=== PATIENT | male | born 1950 | race Caucasian/White ===

== ENCOUNTER → 2018-03-28 07:02 | Outpatient (CLI) | payer MEDICARE, OTHER, SELFPAY ==
[2018-03-28 07:30] LABS: Basophils % 0.5 % (0.1-2.0); Eosinophils # 0.3 K/mm3 (0.0-0.4); Eosinophils % 3.3 % (0.1-12.0); Hematocrit 44.6 % (42.0-52.0); Hemoglobin 15.4 g/dL (14.1-18.0); Lymphocytes # 3.2 K/mm3 (0.7-4.5); Mean Corpuscular HGB Conc 34.5 g/dL (31.8-35.4); Mean Corpuscular Hemoglobin 30.1 pg (27.0-31.2); Mean Corpuscular Volume 87.1 fl (80-94); Mean Platelet Volume 7.3 fl (7.4-10.4); Monocytes # 0.5 K/mm3 (0.1-1.0); Monocytes % 5.9 % (1.7-9.3); Neutrophils # 4.4 K/mm3 (1.8-7.8); Neutrophils % 52.2 % (37.0-80.0); Platelet Count 279 K/mm3 (142-424); Red Blood Count 5.12 M/mm3 (4.60-6.20); Red Cell Distribution Width 14.7 % (11.5-17.5); White Blood Count 8.4 K/mm3 (4.8-10.8)
[2018-03-28 09:46] LABS: Hemoglobin A1C 8.6 % (0.0-7.0)
[2018-03-28 10:15] LABS: Alanine Aminotransferase 17 U/L (12-78); Albumin Level 3.5 gm/dL (3.4-5.0); Albumin/Globulin Ratio 0.9 (1.1-1.8); Alkaline Phosphatase 57 U/L (46-116); Aspartate Amino Transferase 21 U/L (15-37); Bilirubin,Total 0.6 mg/dL (0.2-1.0); Blood Urea Nitrogen 22 mg/dL (7-18); Calcium 9.8 mg/dL (8.5-10.1); Carbon Dioxide 28 mmol/L (21.0-32.0); Chloride 102 mmol/L (98-107); Creatinine,Serum 1.04 mg/dL (0.70-1.30); Estimated Glomerular Filt Rate 71 ml/min (>60); GFR (African American) 86 ML/MIN (>60); Globulin 3.7 gm/dl (1.3-3.2); Glucose 246 mg/dL (74-106); Sodium 138 mmol/L (136-145); Total Protein,Serum 7.2 gm/dL (6.4-8.2)
[2018-03-28 16:06] LABS: Chol/HDL Ratio 4.2 (1-3.5); Cholesterol 174 mg/dL (140-200); HDL Cholesterol 41 mg/dL (27-67); Triglycerides 528 mg/dL (30-200)
== END ==
PROVIDERS: Visit Provider Family Medicine
DX: I25.10 Atherosclerotic heart disease of native coronary artery without angina pectoris (principal); E78.5 Hyperlipidemia, unspecified; I10 Essential (primary) hypertension; E11.9 Type 2 diabetes mellitus without complications
CPT/HCPCS: 36415; 80053; 80061; 83036; 85025

== ENCOUNTER → 2018-09-29 07:20 | Outpatient (CLI) | payer MEDICARE, OTHER, SELFPAY ==
[2018-09-29 08:50] LABS: Hemoglobin A1C 9.6 % (0.0-7.0)
[2018-09-29 08:57] LABS: Alanine Aminotransferase 19 U/L (12-78); Albumin Level 3.3 gm/dL (3.4-5.0); Albumin/Globulin Ratio 0.8 (1.1-1.8); Alkaline Phosphatase 66 U/L (46-116); Anion Gap 14.4 mEq/L (5-15); Aspartate Amino Transferase 25 U/L (15-37); Bilirubin,Total 0.4 mg/dL (0.2-1.0); Blood Urea Nitrogen 13 mg/dL (7-18); Calcium 9.1 mg/dL (8.5-10.1); Carbon Dioxide 27 mmol/L (21.0-32.0); Chloride 103 mmol/L (98-107); Chol/HDL Ratio 4.7 (1-3.5); Cholesterol 198 mg/dL (140-200); Creatinine,Serum 0.95 mg/dL (0.70-1.30); Estimated Glomerular Filt Rate 79 ml/min (>60); GFR (African American) 96 ML/MIN (>60); Glucose 241 mg/dL (74-106); HDL Cholesterol 42 mg/dL (27-67); Potassium 4.4 mmoL/L (3.5-5.1); Sodium 140 mmol/L (136-145); Total Protein,Serum 7.3 gm/dL (6.4-8.2)
[2018-09-29 09:03] LABS: Triglycerides 456 mg/dL (30-200)
== END ==
PROVIDERS: PCP Family Medicine; Visit Provider Family Medicine
DX: E11.9 Type 2 diabetes mellitus without complications (principal); E78.5 Hyperlipidemia, unspecified
CPT/HCPCS: 36415; 80053; 80061; 83036

== ENCOUNTER → 2019-05-22 07:49 | Outpatient (CLI) | payer MEDICARE, OTHER, SELFPAY ==
[2019-05-22 08:52] LABS: Hemoglobin A1C 9.9 % (0.0-7.0)
[2019-05-22 10:20] LABS: Alanine Aminotransferase 20 U/L (12-78); Albumin Level 3.3 gm/dL (3.4-5.0); Albumin/Globulin Ratio 0.8 (1.1-1.8); Alkaline Phosphatase 59 U/L (46-116); Anion Gap 12.7 mEq/L (5-15); Aspartate Amino Transferase 22 U/L (15-37); Bilirubin,Total 0.5 mg/dL (0.2-1.0); Blood Urea Nitrogen 20 mg/dL (7-18); Calcium 9.6 mg/dL (8.5-10.1); Carbon Dioxide 30 mmol/L (21.0-32.0); Chloride 102 mmol/L (98-107); Chol/HDL Ratio 4.3 (1-3.5); Cholesterol 183 mg/dL (140-200); Creatinine,Serum 1.01 mg/dL (0.70-1.30); Estimated Glomerular Filt Rate 73 ml/min (>60); GFR (African American) 89 ML/MIN (>60); Globulin 4.1 gm/dl (1.3-3.2); Glucose 170 mg/dL (74-106); HDL Cholesterol 43 mg/dL (27-67); Potassium 4.7 mmoL/L (3.5-5.1); Sodium 140 mmol/L (136-145); Total Protein,Serum 7.4 gm/dL (6.4-8.2); Triglycerides 419 mg/dL (30-200)
== END ==
PROVIDERS: Visit Provider Family Medicine
DX: E11.9 Type 2 diabetes mellitus without complications (principal); E78.5 Hyperlipidemia, unspecified; I25.10 Atherosclerotic heart disease of native coronary artery without angina pectoris; I25.5 Ischemic cardiomyopathy; Z12.5 Encounter for screening for malignant neoplasm of prostate
CPT/HCPCS: 36415; 80053; 80061; 83036; 84153; G0103

== ENCOUNTER → 2020-11-03 10:33 | Outpatient (CLI) | payer MEDICARE, OTHER, SELFPAY ==
--- NOTE | 2020-11-03 10:41 | XR_ITS ---
PROCEDURE: XR FOOT WT BEARING RT 3V CLINICAL INDICATION: fracture of right great toe COMPARISON: CR XR FOOT WT BEARING LT 3V from 11/03/2020 FINDINGS: There is a well-circumscribed lucency the diaphyseal metaphyseal junction the great toe measuring 11 mm. Osteoarthritic changes are present at the 1st MTP joint. There is a 7 mm well-circumscribed calcific density along the dorsal aspect and distal aspect of the 1st metatarsal. The lucency could be related to an osteochondral defect in the calcific density could be related to an osteochondral fragment. This however would be unusual appearance for these findings especially at the distal aspect of the 1st metatarsal. Has there been previous surgery or trauma? There is some soft tissue swelling at the distal aspect of the 1st metatarsal as well. There is borderline pes planus. Vascular calcifications are noted. Small calcaneal spur. IMPRESSION: Unusual lucency and calcific density at the distal aspect of the 1st metatarsal as described above which could be related to osteochondral defect and osteochondral fragment postsurgical change or posttraumatic change. Please correlate with clinical findings. There are osteoarthritic changes at the 1st MTP joint Dictated by: Bonifacio Garcia MD 11/03/2020 11:31 Bonifacio Garcia MD in [place] 11/03/2020 11:31
--- NOTE | 2020-11-03 10:41 | XR_ITS ---
PROCEDURE: XR FOOT WT BEARING LT 3V CLINICAL INDICATION: comparison views Pain, left great toe fracture redness and swelling COMPARISON: No exams were available for comparison FINDINGS: There is a fracture at the proximal and lateral aspect of the distal phalanx of the great toe. Fracture lines are not well circumscribed. This does raise the possibility osteomyelitis with pathologic fracture. Please correlate with clinical findings. There is soft tissue swelling at this area. No soft tissue gas. Mild osteoarthritic changes are present at the 1st MTP joint and there is generalized vascular calcification. Other findings:None. IMPRESSION: Nondisplaced fracture lateral aspect and proximal aspect of the distal phalanx of the great toe with ill-defined bony margins raising the possibility of associated osteomyelitis Dictated by: Bonifacio Garcia MD 11/03/2020 11:33 Bonifacio Garcia MD in [place] 11/03/2020 11:33
== END ==
PROVIDERS: PCP Family Medicine; Visit Provider Podiatrist
DX: T14.8XXA Other injury of unspecified body region, initial encounter (principal); M79.672 Pain in left foot; M79.671 Pain in right foot; S92.415A Nondisplaced fracture of proximal phalanx of left great toe, initial encounter for closed fracture
CPT/HCPCS: 73630

== ENCOUNTER → 2020-11-06 09:35 | Outpatient (CLI) | payer MEDICARE, OTHER, SELFPAY ==
[2020-11-06 10:15] LABS: Basophils # 0.1 K/mm3 (0-0.2); Basophils % 0.8 % (0.1-2.0); Eosinophils # 0.2 K/mm3 (0.0-0.4); Eosinophils % 2.2 % (0.1-12.0); Hematocrit 50.2 % (42.0-52.0); Hemoglobin 16.8 g/dL (14.1-18.0); Lymphocytes # 2.9 K/mm3 (0.7-4.5); Lymphocytes % 32.1 % (10-50); Mean Corpuscular HGB Conc 33.4 g/dL (31.8-35.4); Mean Corpuscular Hemoglobin 28.3 pg (27.0-31.2); Mean Platelet Volume 7.9 fl (7.4-10.4); Monocytes # 0.5 K/mm3 (0.1-1.0); Monocytes % 6.1 % (1.7-9.3); Neutrophils # 5.3 K/mm3 (1.8-7.8); Neutrophils % 58.8 % (37.0-80.0); Platelet Count 287 K/mm3 (142-424); Red Blood Count 5.91 M/mm3 (4.60-6.20); Red Cell Distribution Width 15.1 % (11.5-17.5)
[2020-11-06 10:51] LABS: Chloride 101 mmol/L (98-107)
[2020-11-06 10:52] LABS: Potassium 4.7 mmoL/L (3.5-5.1); Sodium 139 mmol/L (136-145)
[2020-11-06 10:54] LABS: Alanine Aminotransferase 14 U/L (12-78); Albumin Level 4.3 g/dl (3.5-5.0); Albumin/Globulin Ratio 1.2 (1.1-1.8); Alkaline Phosphatase 64 U/L (38-126); Anion Gap 12.7 mEq/L (5-15); Aspartate Amino Transferase 33 U/L (17-59); Bilirubin,Total 0.6 mg/dl (0.2-1.3); Blood Urea Nitrogen 19 mg/dl (9-20); Carbon Dioxide 30 mmol/L (22.0-30.0); Estimated Glomerular Filt Rate 83 ml/min (>60); GFR (African American) 101 ML/MIN (>60); Globulin 3.6 g/dL (1.3-3.2); Total Protein,Serum 7.9 g/dl (6.3-8.2)
[2020-11-06 10:55] LABS: Calcium 10.2 mg/dl (8.4-10.2); Glucose 196 mg/dl (74-100)
[2020-11-06 11:00] LABS: C-Reactive Protein 2.5 mg/L (0-4)
[2020-11-06 11:52] LABS: Erythrocyte Sedimentation Rate 47 mm/hr (0-20)
== END ==
PROVIDERS: Visit Provider Nurse Practitioner
DX: T14.8XXA Other injury of unspecified body region, initial encounter (principal); S92.415D Nondisplaced fracture of proximal phalanx of left great toe, subsequent encounter for fracture with routine healing
CPT/HCPCS: 36415; 80053; 85025; 85651; 86140; 87070; 87186; 87205

== ENCOUNTER → 2020-11-10 08:00 | Outpatient (CLI) | payer MEDICARE, OTHER, SELFPAY ==
--- NOTE | 2020-11-10 08:02 | US_ITS ---
APPROVED REPORT Exam Type: Ankle to Brachial Index Business Administrator: Shobha Hodge RT(R) Indications Abrasion of the left great toe with discoloration noted. Risk Factors Hypertension Hyperlipidemia Obesity Diabetes Pressures/Indices Right Indices Left Indices Brachial 135.00 mmHg Brachial 133.00 mmHg Low Thigh 138.00 mmHg 1.02 Low Thigh 131.00 mmHg 0.97 Calf 163.00 mmHg 1.21 Calf 171.00 mmHg 1.27 Ankle(PT) 191.00 mmHg 1.41 Ankle(PT) 143.00 mmHg 1.06 Ankle(DP) 155.00 mmHg 1.15 Ankle(DP) 142.00 mmHg 1.05 Digit 66.00 mmHg 0.49 Digit 74.00 mmHg 0.55 Findings RT SHAHANA=1.41 LT SHAHANA=1.1 RT TBI=0.49 LT TBI=0.55 Normal waveforms SHAHANA's on RT consistent with restrictive pattern Normal pulses bilaterally Conclusion RT SHAHANA=1.41 LT SHAHANA=1.1 RT TBI=0.49 LT TBI=0.55 Normal waveforms SHAHANA's on RT consistent with restrictive pattern Normal pulses bilaterally Electronically signed by : Bonifacio Garcia MD 11/10/2020 16:53:23
--- NOTE | 2020-11-10 08:43 | MR_ITS ---
PROCEDURE: MR FOOT LT WO/W CON CLINICAL INDICATION: evaluating for osteomyelitis of the left great toe S/P FX GREAT TOE X1 MONTH, DIABETIC, R/O OSTEOMYELITIS COMPARISON: CR XR FOOT WT BEARING LT 3V from 11/03/2020 TECHNIQUE: Routine multiplanar multi echo sequences are performed without and with gadolinium enhancement. FINDINGS: There is diffuse increased T2 signal involving the distal phalanx of the great toe with associated soft tissue swelling. There is mild diffuse enhancement of the distal phalanx of the great toe in the surrounding soft tissues. These findings are consistent osteomyelitis. The bony margins of the distal phalanx are somewhat obscured. There is also increased T2 signal involving the mid and distal aspect of the proximal phalanx of the great toe. This is best demonstrated on the sagittal T2 weighted images. There are 2 small areas of more focal increased T2 signal within the distal aspect of the proximal phalanx of the great toe each measuring five mm. Incidental note made of increased T2 signal at the joint space at the 1st metatarsal tarsal junction which may be related to reactive change from osteoarthritic changes. Minimal subchondral cystic change noted at the head of the 1st metatarsal. There is a small area of increased subchondral T2 signal within the lateral aspect of the talar dome suggesting area of osteochondrosis versus subchondral cystic change, favor the latter. This area measures 7 mm. No obvious ligamentous or tendinous abnormalities however, the study is not tailored specifically for those structures. There is pes planus. There are some edematous changes involving the distal aspect of the talus at the you anterior subtalar region consistent with some subchondral cystic changes at 7 mm. There is a moderate amount of fluid surrounding the flexor hallucis longus tendon consistent with tenosynovitis. IMPRESSION: Findings are compatible with osteomyelitis of the distal phalanx of the great toe and the distal aspect of the proximal phalanx of the great toe with associated cellulitis. There are scattered osteoarthritic changes with subchondral cystic areas as described above. Tenosynovitis of flexor hallucis longus tendon Dictated by: Bonifacio Garcia MD 11/13/2020 09:33 Bonifacio Garcia MD in [place] 11/13/2020 09:33
== END ==
PROVIDERS: PCP Family Medicine; Visit Provider Nurse Practitioner
DX: R09.89 Other specified symptoms and signs involving the circulatory and respiratory systems (principal); E08.621 Diabetes mellitus due to underlying condition with foot ulcer; L97.501 Non-pressure chronic ulcer of other part of unspecified foot limited to breakdown of skin; Z79.4 Long term (current) use of insulin
CPT/HCPCS: 73720; 93923; A9576

== ENCOUNTER 2020-11-29 07:37 | Day surgery (SDC) | payer MEDICARE, OTHER, SELFPAY ==
[2020-11-29] VITALS (7 sets, daily range): BP systolic 97–163; BP diastolic 62–107; PULSE 58–75; RESP 18; TEMP 36.5–43; O2SAT 94–98; BMI 28.8
--- NOTE | 2020-11-29 07:58 | XR_ITS ---
PROCEDURE: XR CHEST PORTABLE CLINICAL HISTORY: htn COMPARISON: No exams were available for comparison FINDINGS: The cardiomediastinal silhouette and pulmonary vascularity are within normal limits. The lungs are clear without infiltrates, suspicious nodules, or pleural effusions. No acute bony abnormalities. There is metallic screw along the inferior border of the glenoid right shoulder. IMPRESSION: No acute findings. Dictated by: Dr. Osmin Donato MD 11/29/2020 08:14 Dr. Osmin Donato MD in [place] 11/29/2020 08:14
--- NOTE | 2020-11-29 07:58 | ECG_ITS ---
APPROVED REPORT Exam: Resting ECG HR:73 bpm ECG Measurements Heart Rate 73 AXES QRSd 82 QRS 55 QT 406 T 60 QTc 447 Conclusion Atrial fibrillation with premature ventricular or aberrantly conducted complexes Abnormal ECG Electronically signed by : Shawn Bernard, 11/29/2020 14:20:49
[2020-11-29 08:33] LABS: POC Glucose,Bedside 94 (70-110)
[2020-11-29 08:45] LABS: Hemoglobin A1C 8.2 % (4.0-6.0)
[2020-11-29 09:02] LABS: Coronavirus 19 IgG Antibody Negative (Negative); Coronavirus 19 IgM Antibody Negative (Negative)
--- NOTE | 2020-11-29 09:53 | P.PN_ITS ---
[facility] Anesthesia Checklist - Patient Identification Patient Identification: Arm Band - Structural Data Admitted From: Home Planned Operative Procedure/s: Left Hallux Amputation Consent for Planned Operative Procedure(s) Verified: Yes Verified Documents: Surgical Consent, History and Physical - NPO Status Verified Time NPO: 04:30 (water) - Additional verifications Anesthesia Reactions: No Hx Blood Transfusions: No Blood Transfusion Reaction: No - Airway Assessment C-Spine Mobility Assessed: Yes (mp2) TMJ Mobility Assessed: Yes Dentition: Good Dentition - Neurological Assessment Level of Consciousness: Awake, Alert - Anesthesia Plan Anesthesia Risk discussed: Yes Anesthesia Plan: Verified ASA Class: III Anesthesia Type: MAC [facility] History I have reviewed the patient's past medical history: Yes Medical History: Reports:: Arrhythmia, Atrial Fibrillation, Diabetes Mellitus Type 2, Hypertension Denies:: Cancer, Diabetes Mellitus Type 1, Internal Pacemaker, MRSA, Seizures *Have you ever received a pneumonia vaccine?: Yes *Have you received a flu vaccine this season?: Yes Other Medical History: Denies: Blood Transfusion Reaction Anesthesia experience/problems:: nac Laterality Cases: Right: Other Other Surgeries: Yes: Hernia Repair, Other. No: Pacemaker Amputation: No Fractures: No - *Social History Last grade of school completed: Some college Smoking Status: Never smoker Alcohol Intake: current Alcohol Intake Frequency:: holidays/special occasions only Substance Use Type: denies use *Occupational Status:: employed Housing: house Household Members: spouse *Travel in the last 8 weeks: None Family Hx:: Non-contributory
--- NOTE | 2020-11-29 10:36 | XR_ITS ---
PROCEDURE: XR FOOT LT MIN 3V CLINICAL INDICATION: Post op amp COMPARISON: CR XR FOOT WT BEARING LT 3V from 11/03/2020 CR XR FOOT WT BEARING RT 3V from 11/03/2020 FINDINGS: There has been interval resection of the 1st feelings at the metatarsal phalangeal joint. There are multiple pockets of air within the soft tissues. This could represent postsurgical typical postsurgical air however if surgery was not performed recently than this is worrisome for a gas containing infection and immediate surgical consultation recommended. There is prominent surrounding soft tissue swelling. There is indistinctness of the medial cortex of the 2nd proximal phalangeal head worrisome for and bony involvement however overlying bandage material makes evaluation of the bony structure in this area less precise. If further evaluation is needed, removal overlying bandage material and were or dedicated 2nd toe x-ray would be recommended. IMPRESSION: Air or gas within the soft tissues status post interval amputation. Urgent consultation with surgery recommended. Possible osteomyelitis involving the 2nd proximal phalanx. Additional imaging could clarify. Dictated by: Zohra Mathews MD 11/29/2020 13:09 Zohra Mathews MD in [place] 11/29/2020 13:09
--- NOTE | 2020-11-29 10:37 | HMH.OPNOTE ---
Date of procedure: 11/29/20 Pre-op Diagnosis:: 1. Left hallux osteomyelitis 2. Left hallux diabetic ulcer 3. New left diabetic foot ulcer Post-op Diagnosis:: Same Procedure performed:: 1. Left hallux amputation 2. Left hallux ulcer excision 3. Left midfoot ulcer debridement Surgeon:: Valencia Culver DPM ADHESIVE BANDAGE MACHINE OPERATOR:: Germandelia Tapia Anesthesia: MAC, local (10cc 0.5% marcaine plain) Estimated blood loss (mL): 10 Clinical Note:: Patient is a 70M who presents after fracture to left great toe with diabetic ulcer. Imaging noted. Radiographs of the left foot were reviewed from 11/03/2020 and discussed with the patient. X-rays report findings: There is a fracture at the proximal and lateral aspect of the distal phalanx of the great toe. Fracture lines are not well circumscribed. This does raise the possibility osteomyelitis with pathologic fracture. Please correlate with clinical findings. There is soft tissue swelling at this area. No soft tissue gas. Mild osteoarthritic changes are present at the 1st MTP joint and there is generalized vascular calcification. IMPRESSION: Nondisplaced fracture lateral aspect and proximal aspect of the distal phalanx of the great toe with ill-defined bony margins raising the possibility of associated osteomyelitis. MRI left foot 11/10/20 evalauted by myself. Report noted. FINDINGS: There is diffuse increased T2 signal involving the distal phalanx of the great toe with associated soft tissue swelling. There is mild diffuse enhancement of the distal phalanx of the great toe in the surrounding soft tissues. These findings are consistent osteomyelitis. The bony margins of the distal phalanx are somewhat obscured. There is also increased T2 signal involving the mid and distal aspect of the proximal phalanx of the great toe. This is best demonstrated on the sagittal T2 weighted images. There are 2 small areas of more focal increased T2 signal within the distal aspect of the proximal phalanx of the great toe each measuring five mm. Incidental note made of increased T2 signal at the joint space at the 1st metatarsal tarsal junction which may be related to reactive change from osteoarthritic changes. Minimal subchondral cystic change noted at the head of the 1st metatarsal. There is a small area of increased subchondral T2 signal within the lateral aspect of the talar dome suggesting area of osteochondrosis versus subchondral cystic change, favor the latter. This area measures 7 mm. No obvious ligamentous or tendinous abnormalities however, the study is not tailored specifically for those structures. There is pes planus. There are some edematous changes involving the distal aspect of the talus at the you anterior subtalar region consistent with some subchondral cystic changes at 7 mm. There is a moderate amount of fluid surrounding the flexor hallucis longus tendon consistent with tenosynovitis. IMPRESSION: Findings are compatible with osteomyelitis of the distal phalanx of the great toe and the distal aspect of the proximal phalanx of the great toe with associated cellulitis. There are scattered osteoarthritic changes with subchondral cystic areas as described above. Tenosynovitis of flexor hallucis longus tendon. Bilateral lower extremity arterial study 11/10/2020 reviewed. Conclusion: RT SHAHANA=1.41, LT SHAHANA=1.1, RT TBI=0.49, LT TBI=0.55. Normal waveforms. SHAHANA's on RT consistent with restrictive pattern. Normal pulses bilaterally. His color maker reviewed and cleared patient. We discussed conservative versus surgical treatment options. Conservative treatment options include local wound care, oral and IV antibiotics, change in shoe wear, taping/padding, and off-loading. We discussed surgical intervention for amputation of the left great toe. Patient understands that there is a chance that the toes can migrate to fill the gap or the foot may change shape after surgery. Patient also understands that they could have wound healing complications including delayed healing and inf
== END 2020-11-29 11:50 | disposition home or self-care (01) ==
LOC: OR 07:40
PROVIDERS: PCP Family Medicine; Visit Provider Podiatrist
PROC: (CPT 11042; principal; 2020-11-29 10:00)
DX: E11.621 Type 2 diabetes mellitus with foot ulcer (principal); M86.9 Osteomyelitis, unspecified; S92.425A Nondisplaced fracture of distal phalanx of left great toe, initial encounter for closed fracture; L97.422 Non-pressure chronic ulcer of left heel and midfoot with fat layer exposed; L97.528 Non-pressure chronic ulcer of other part of left foot with other specified severity; Z79.4 Long term (current) use of insulin; Z79.01 Long term (current) use of anticoagulants; I48.91 Unspecified atrial fibrillation; I10 Essential (primary) hypertension; E11.42 Type 2 diabetes mellitus with diabetic polyneuropathy; Z79.899 Other long term (current) drug therapy
CPT/HCPCS: 11042; 28825; 71045; 73630; 82962; 83036; 86328; 87070; 87077; 87186; 87205; 88305; 88311; 93005; 96374

== ENCOUNTER → 2020-12-11 09:19 | Outpatient (CLI) | payer MEDICARE, OTHER, SELFPAY ==
[2020-12-11 09:49] LABS: Basophils # 0.1 K/mm3 (0-0.2); Basophils % 0.8 % (0.1-2.0); Eosinophils # 0.3 K/mm3 (0.0-0.4); Eosinophils % 3.4 % (0.1-12.0); Hematocrit 49.1 % (42.0-52.0); Hemoglobin 16.5 g/dL (14.1-18.0); Lymphocytes # 2.9 K/mm3 (0.7-4.5); Lymphocytes % 30.4 % (10-50); Mean Corpuscular HGB Conc 33.6 g/dL (31.8-35.4); Mean Corpuscular Hemoglobin 28.2 pg (27.0-31.2); Mean Corpuscular Volume 83.8 fl (80-94); Mean Platelet Volume 7.8 fl (7.4-10.4); Monocytes # 0.7 K/mm3 (0.1-1.0); Monocytes % 7.3 % (1.7-9.3); Neutrophils # 5.6 K/mm3 (1.8-7.8); Neutrophils % 58.1 % (37.0-80.0); Platelet Count 305 K/mm3 (142-424); Red Blood Count 5.86 M/mm3 (4.60-6.20); Red Cell Distribution Width 14.4 % (11.5-17.5); White Blood Count 9.6 K/mm3 (4.8-10.8)
[2020-12-11 10:41] LABS: Chloride 108 mmol/L (98-107); Potassium 4.5 mmoL/L (3.5-5.1); Sodium 143 mmol/L (136-145)
[2020-12-11 10:43] LABS: Alanine Aminotransferase 13 U/L (12-78); Blood Urea Nitrogen 23 mg/dl (9-20); Estimated Glomerular Filt Rate 83 ml/min (>60); GFR (African American) 101 ML/MIN (>60)
[2020-12-11 10:44] LABS: Albumin Level 4.1 g/dl (3.5-5.0); Albumin/Globulin Ratio 1.1 (1.1-1.8); Alkaline Phosphatase 66 U/L (38-126); Anion Gap 14.5 mEq/L (5-15); Aspartate Amino Transferase 31 U/L (17-59); Bilirubin,Total 0.5 mg/dl (0.2-1.3); Calcium 10.2 mg/dl (8.4-10.2); Carbon Dioxide 25 mmol/L (22.0-30.0); Globulin 3.7 g/dL (1.3-3.2); Glucose 133 mg/dl (74-100); Total Protein,Serum 7.8 g/dl (6.3-8.2)
[2020-12-11 10:49] LABS: C-Reactive Protein 4.1 mg/L (0-4)
[2020-12-11 12:09] LABS: Erythrocyte Sedimentation Rate 11 mm/hr (0-20)
== END ==
PROVIDERS: Visit Provider Podiatrist
DX: Z98.890 Other specified postprocedural states (principal); E11.42 Type 2 diabetes mellitus with diabetic polyneuropathy; Z79.4 Long term (current) use of insulin
CPT/HCPCS: 36415; 80053; 85025; 85651; 86140

== ENCOUNTER → 2020-12-25 16:49 | Outpatient (CLI) | payer MEDICARE, OTHER, SELFPAY ==
--- NOTE | 2020-12-25 17:08 | XR_ITS ---
PROCEDURE: XR FOOT WT BEARING LT 3V CLINICAL INDICATION: PAIN COMPARISON: CR XR FOOT WT BEARING LT 3V from 11/03/2020 CR XR FOOT WT BEARING RT 3V from 11/03/2020 CR XR FOOT LT MIN 3V from 11/29/2020 FINDINGS: There has been prior amputation at the 1st metatarsophalangeal joint. No bony erosive process apparent. There is pes planus. Generalized vascular calcification noted. IMPRESSION: Status post left 1st MTP amputation with pes planus. Dictated by: Bonifacio Garcia MD 12/25/2020 20:33 Bonifacio Garcia MD in [place] 12/25/2020 20:33
[2020-12-25 17:38] LABS: Basophils # 0.1 K/mm3 (0-0.2); Basophils % 0.6 % (0.1-2.0); Eosinophils # 0.3 K/mm3 (0.0-0.4); Eosinophils % 2.8 % (0.1-12.0); Hematocrit 45.4 % (42.0-52.0); Hemoglobin 14.8 g/dL (14.1-18.0); Lymphocytes % 31.9 % (10-50); Mean Corpuscular HGB Conc 32.6 g/dL (31.8-35.4); Mean Corpuscular Hemoglobin 27.8 pg (27.0-31.2); Mean Corpuscular Volume 85.4 fl (80-94); Mean Platelet Volume 7.7 fl (7.4-10.4); Monocytes # 0.7 K/mm3 (0.1-1.0); Monocytes % 7.3 % (1.7-9.3); Neutrophils # 5.5 K/mm3 (1.8-7.8); Neutrophils % 57.4 % (37.0-80.0); Platelet Count 260 K/mm3 (142-424); Red Blood Count 5.31 M/mm3 (4.60-6.20); Red Cell Distribution Width 14.9 % (11.5-17.5); White Blood Count 9.5 K/mm3 (4.8-10.8)
[2020-12-25 17:50] LABS: Alanine Aminotransferase 15 U/L (12-78); Albumin/Globulin Ratio 1.1 (1.1-1.8); Alkaline Phosphatase 65 U/L (38-126); Anion Gap 12.2 mEq/L (5-15); Aspartate Amino Transferase 46 U/L (17-59); Bilirubin,Total 0.4 mg/dl (0.2-1.3); Blood Urea Nitrogen 18 mg/dl (9-20); Calcium 9.7 mg/dl (8.4-10.2); Carbon Dioxide 23 mmol/L (22.0-30.0); Chloride 107 mmol/L (98-107); Estimated Glomerular Filt Rate 83 ml/min (>60); GFR (African American) 101 ML/MIN (>60); Globulin 3.6 g/dL (1.3-3.2); Glucose 165 mg/dl (74-100); Potassium 4.2 mmoL/L (3.5-5.1); Sodium 138 mmol/L (136-145); Total Protein,Serum 7.6 g/dl (6.3-8.2)
[2020-12-25 17:56] LABS: C-Reactive Protein 2.1 mg/L (0-4)
[2020-12-25 19:57] LABS: Erythrocyte Sedimentation Rate 16 mm/hr (0-20)
[2020-12-25 20:10] LABS: Hemoglobin A1C 8.4 % (4.0-6.0)
== END ==
PROVIDERS: PCP Family Medicine; Visit Provider Podiatrist
DX: Z98.890 Other specified postprocedural states (principal); M86.9 Osteomyelitis, unspecified; E11.9 Type 2 diabetes mellitus without complications; R52 Pain, unspecified; Z79.4 Long term (current) use of insulin
CPT/HCPCS: 36415; 73630; 80053; 83036; 85025; 85651; 86140

== ENCOUNTER → 2021-01-01 11:12 | Outpatient (CLI) | payer MEDICARE, OTHER, SELFPAY ==
[2021-01-01 12:43] LABS: Coronavirus 19 IgG Antibody Negative (Negative); Coronavirus 19 IgM Antibody Negative (Negative)
== END ==
PROVIDERS: Visit Provider Podiatrist
DX: Z01.818 Encounter for other preprocedural examination (principal); Z20.822 Contact with and (suspected) exposure to COVID-19; M86.9 Osteomyelitis, unspecified
CPT/HCPCS: 36415; 86328

== ENCOUNTER 2021-01-03 06:12 | Day surgery (SDC) | payer MEDICARE, OTHER, SELFPAY ==
[2021-01-03 06:36] VITALS: BP 141/92; PULSE 87; RESP 18; TEMP 36.4; O2SAT 96; BMI 28.2
[2021-01-03 06:41] LABS: POC Glucose,Bedside 153 (70-110)
[2021-01-03 07:34] VITALS: BP 127/72; PULSE 80; RESP 18; TEMP 36.7; O2SAT 96
--- NOTE | 2021-01-03 07:52 | HMH.OPNOTE ---
Date of procedure: 01/03/21 Pre-op Diagnosis:: 1. Left hallux wound dehiscence 2. Left hallux cellulites Post-op Diagnosis:: Same Procedure performed:: 1. Left hallux wound deep debridement 2. Left hallux irrigation and debridement 3. Left hallux/foot delayed primary closure Surgeon:: Valencia Culver DPM Anesthesia: local (10cc 0.5% marcaine plain) Estimated blood loss (mL): 5 Clinical Note:: 11/29/20, S/p Left hallux amputation, hallux ulcer excision, midfoot ulcer debridement 11/29/20, intra-op specimens: Left hallux distal phalanx bone culture: Staph epi (MRSA) Left hallux proximal phalanx bone culture: MRSA Left hallux distal phalanx bone pathology: Toe with focal ulceration and cellulitis, no evidence of malignancy Left hallux proximal phalanx bone pathology: Segment of bone and periosteal tissue with focal reactive changes. No evidence of malignancy Labs, 12/11/2020: wbc 9.6, esr 11, crp 4.1, glucose 133, creatinine 0.9, gfr 83 Labs, 12/25/2020: wbc 9.6, esr 16, crp 2.1, glucose 165, creatinine 0.9, gfr 83, Ha1c 8.4% Left foot x-rays 3 views taken 12/25/20 evaluated by myself. Report noted. FINDINGS: There has been prior amputation at the 1st metatarsophalangeal joint. No bony erosive process apparent. There is pes planus. Generalized vascular calcification noted. IMPRESSION: Status post left 1st MTP amputation with pes planus. Patient did get cardiac/vascular clearance prior to surgery but concerned of the small vessel disease and why he is not healing. I explained the lack/slow healing to be PVD or recurrent infection. The labs and left foot x-rays to evaluate for recurrent osteomyelitis were reviewed, and show no recurrent infection. Discussed since the wound does not look improved, plan for surgery planning visit for revision of the amputation site with debridement and delayed primary closure. Discussed local versus MAC anesthesia if needed. 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 Recommend patient decrease work hours and elevate the foot as much as possible. Unlikely the patient will stop work or take time off. All questions answered and patient verbalized understanding and agreement with treatment plan. We discussed conservative versus surgical treatment options. Conservative treatment options include local wound care, oral and IV antibiotics, change in shoe wear, taping/padding, and off-loading. We discussed surgical intervention for wound debridement. Patient understands that there is a chance that the toes can migrate to fill the gap or the foot may change shape after surgery. Patient also understands that they could have wound healing complications including delayed healing and infection. We discussed that if the wound does not heal, it is possible that they may need a more proximal amputation and could result in further loss of digits, loss of partial foot or loss of leg. We discussed the risks and benefits in great detail. Other surgical risks include: prolonged pain and swelling, further infection requiring oral or IV antibiotics, delay in healing of soft tissue or bone, nerve or blood vessel damage, CRPS/RSD, DVT, anesthesia complications, and even . All questions answered. Patient verbalized understanding. Consent obtained. Continue Minocycline 100mg BID x 14 days (12/05-12/19/20-01/03/21). Labs: covid (-) on 01/01/21. Operative findings:: Left hallux wound dehiscence noted. The left hallux pre debridement has 50% yellow fibrotic tissue with 40% brown eschar, 10% granular tissue. There was no purulence, malodor or ascending cellulitis noted. The toe distally was boggy. No exposed 1st metatarsal head. Operative note:: On this date and time patient was deemed an appropriate surgical candidate. With informed consent signed, the patient was taken to the local procedure operating theater room. The patient was positioned supine. No anesthesia and no tourniquet used. Pre-op left foot block given with 10 cc 0.5% marcaine tucker
== END 2021-01-03 07:50 | disposition home or self-care (01) ==
LOC: OUTP 06:14
PROVIDERS: PCP Family Medicine; Visit Provider Podiatrist
DX: T87.81 Dehiscence of amputation stump (principal); L03.032 Cellulitis of left toe; I10 Essential (primary) hypertension; E11.621 Type 2 diabetes mellitus with foot ulcer; L97.529 Non-pressure chronic ulcer of other part of left foot with unspecified severity; Z79.4 Long term (current) use of insulin
CPT/HCPCS: 11042; 82962; 87070; 87077; 87186; 87205; 96372

== ENCOUNTER → 2021-01-22 09:03 | Outpatient (CLI) | payer MEDICARE, OTHER, SELFPAY ==
[2021-01-22 10:00] LABS: Basophils # 0.1 K/mm3 (0-0.2); Basophils % 0.7 % (0.1-2.0); Eosinophils # 0.3 K/mm3 (0.0-0.4); Eosinophils % 3.2 % (0.1-12.0); Hematocrit 48.3 % (42.0-52.0); Hemoglobin 16.1 g/dL (14.1-18.0); Lymphocytes # 3.3 K/mm3 (0.7-4.5); Lymphocytes % 37.2 % (10-50); Mean Corpuscular HGB Conc 33.3 g/dL (31.8-35.4); Mean Corpuscular Hemoglobin 28.1 pg (27.0-31.2); Mean Corpuscular Volume 84.6 fl (80-94); Mean Platelet Volume 8.1 fl (7.4-10.4); Monocytes # 0.6 K/mm3 (0.1-1.0); Monocytes % 6.6 % (1.7-9.3); Neutrophils # 4.7 K/mm3 (1.8-7.8); Neutrophils % 52.2 % (37.0-80.0); Platelet Count 237 K/mm3 (142-424); Red Blood Count 5.71 M/mm3 (4.60-6.20); Red Cell Distribution Width 14.9 % (11.5-17.5)
[2021-01-22 10:44] LABS: Chloride 107 mmol/L (98-107); Potassium 4.6 mmoL/L (3.5-5.1); Sodium 141 mmol/L (136-145)
[2021-01-22 10:47] LABS: Alanine Aminotransferase 14 U/L (12-78); Albumin Level 4.5 g/dl (3.5-5.0); Albumin/Globulin Ratio 1.3 (1.1-1.8); Alkaline Phosphatase 67 U/L (38-126); Anion Gap 9.6 mEq/L (5-15); Aspartate Amino Transferase 56 U/L (17-59); Bilirubin,Total 0.7 mg/dl (0.2-1.3); Blood Urea Nitrogen 16 mg/dl (9-20); Carbon Dioxide 29 mmol/L (22.0-30.0); Estimated Glomerular Filt Rate 96 ml/min (>60); GFR (African American) 116 ML/MIN (>60); Globulin 3.4 g/dL (1.3-3.2); Total Protein,Serum 7.9 g/dl (6.3-8.2)
[2021-01-22 10:48] LABS: Calcium 9.8 mg/dl (8.4-10.2); Glucose 125 mg/dl (74-100)
[2021-01-22 11:12] LABS: Erythrocyte Sedimentation Rate 27 mm/hr (0-20)
== END ==
PROVIDERS: Visit Provider Nurse Practitioner
DX: Z98.890 Other specified postprocedural states (principal); M86.9 Osteomyelitis, unspecified
CPT/HCPCS: 36415; 80053; 85025; 85651; 86140

== ENCOUNTER → 2021-06-11 14:34 | Outpatient (CLI) | payer MEDICARE, OTHER, SELFPAY ==
--- NOTE | 2021-06-11 | CA_ITS ---
APPROVED REPORT Right Lower Extremity Venous Study for DVT. Student Life Coordinator: DON Indications Lower Extremity Pain: Right Right knee injury Vein Imaging CFV (R): compressive, spontaneous, phasic, augmentation SFJ (R): compressive, spontaneous, phasic, augmentation FEM (R): compressive, spontaneous, phasic, augmentation POP (R): compressive, spontaneous, phasic, augmentationcompressive, spontaneous, phasic, augmentation DFV (R): compressive, spontaneous, phasic, augmentation PTV (R): compressive, spontaneous, phasic, augmentation GSV (R): compressive, spontaneous, phasic, augmentation SSV (R): compressive, spontaneous, phasic, augmentation Peroneals (R):compressive, spontaneous, phasic, augmentation GAS (R): compressive, spontaneous, phasic, augmentation Findings Color flow duplex demonstrates no evidence of DVT of the following right lower extremity Veins:Common Femoral Vein, Femoral Vein, Popliteal Vein, Posterior Tibial Veins, Peroneal Veins, Deep Femoral Vein. Negative for DVT at this time. Right popliteal slow flow noted with complete compression. Conclusion Negative for DVT at this time. Electronically signed by : Bonifacio Garcia MD 06/11/2021 16:18:45
--- NOTE | 2021-06-11 14:41 | XR_ITS ---
PROCEDURE: XR TIBIA FIBULA RT 2V CLINICAL INDICATION: RIGHT LEG SWELLING COMPARISON: No exams were available for comparison FINDINGS: No fracture or dislocation. No lytic or blastic change. There is normal mineralization. The joint spaces are well-preserved. No significant degenerative/arthritic changes. No erosive changes evident. There is vascular calcification IMPRESSION: No acute findings. Dictated by: Bonifacio Garcia MD 06/11/2021 15:34 Bonifacio Garcia MD in [place] 06/11/2021 15:34
== END ==
PROVIDERS: PCP Family Medicine; Visit Provider Family Medicine
DX: M79.604 Pain in right leg (principal); M79.89 Other specified soft tissue disorders
CPT/HCPCS: 73590; 93971

== ENCOUNTER 2021-09-05 18:09 | Emergency (ER) | payer MEDICARE, OTHER, SELFPAY ==
[2021-09-05] VITALS (10 sets, daily range): BP systolic 124–154; BP diastolic 79–97; PULSE 78–123; RESP 18–24; TEMP 36.8; O2SAT 94–98; BMI 28.2
--- NOTE | 2021-09-05 18:09 | ECG_ITS ---
APPROVED REPORT Exam: Resting ECG HR:116 bpm ECG Measurements Heart Rate 116 AXES QRSd 82 QRS 31 QT 328 T 132 QTc 455 Conclusion Atrial fibrillation with rapid ventricular response Nonspecific ST and T wave abnormality Abnormal ECG Electronically signed by : Shawn Bernard MD 09/07/2021 12:13:07
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
[2021-09-05 18:45] LABS: Basophils # 0.1 K/mm3 (0-0.2); Basophils % 0.6 % (0.1-2.0); Eosinophils # 0.1 K/mm3 (0.0-0.4); Hematocrit 45.5 % (42.0-52.0); Hemoglobin 15.1 g/dL (14.1-18.0); Lymphocytes # 2.4 K/mm3 (0.7-4.5); Lymphocytes % 19.7 % (10-50); Mean Corpuscular HGB Conc 33.1 g/dL (31.8-35.4); Mean Corpuscular Hemoglobin 28.6 pg (27.0-31.2); Mean Corpuscular Volume 86.2 fl (80-94); Monocytes # 0.7 K/mm3 (0.1-1.0); Monocytes % 5.3 % (1.7-9.3); Neutrophils # 9.1 K/mm3 (1.8-7.8); Neutrophils % 73.5 % (37.0-80.0); Platelet Count 228 K/mm3 (142-424); Red Blood Count 5.28 M/mm3 (4.60-6.20); Red Cell Distribution Width 15.1 % (11.5-17.5); White Blood Count 12.3 K/mm3 (4.8-10.8)
[2021-09-05 18:50] LABS: Chloride 102 mmol/L (98-107); Potassium 3.9 mmoL/L (3.5-5.1); Sodium 140 mmol/L (136-145)
[2021-09-05 18:53] LABS: Anion Gap 15.9 mEq/L (5-15); Blood Urea Nitrogen 18 mg/dl (9-20); Calcium 9.3 mg/dl (8.4-10.2); Carbon Dioxide 26 mmol/L (22.0-30.0); Creatinine Clearance Estimated 97 mL/min (50-200); Estimated Glomerular Filt Rate 83 ml/min (>60); GFR (African American) 101 ML/MIN (>60); Glucose 215 mg/dl (74-100)
[2021-09-05 19:05] LABS: Troponin I 0.07 ng/ml (0.00-0.034)
--- NOTE | 2021-09-05 19:20 | PC.NURSE ---
ER MD is aware of troponin level
--- NOTE | 2021-09-05 19:30 | PC.NURSE ---
called [facility] to reach Dr. Pacheco/button spindler.
--- NOTE | 2021-09-05 19:42 | PC.NURSE ---
Dr. Mariano on phone with Dr. Miller from [facility].
--- NOTE | 2021-09-05 19:48 | PC.NURSE ---
face sheet faxed to [facility] [phone]
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
--- NOTE | 2021-09-05 20:56 | PC.NURSE ---
pt has been accepted to [facility] room 466. Call when pt leaves to [phone].
--- NOTE | 2021-09-05 20:59 | PC.NURSE ---
Report given to Chary @ [facility] Adalid Rivero
--- NOTE | 2021-09-05 21:14 | PC.NURSE ---
Updated pt and daughter that report has been called, we are awaiting [facility] once they back in [facility].
[2021-09-05 22:07] LABS: Troponin I 0.64 ng/ml (0.00-0.034)
[2021-09-05 22:18] LABS: POC Glucose,Bedside 146 (70-110)
== END 2021-09-05 23:02 | disposition short-term general hospital (02) ==
PROVIDERS: Emergency Provider Emergency Medicine; PCP Nurse Practitioner Family
DX: R07.2 Precordial pain (principal); I48.0 Paroxysmal atrial fibrillation; E11.9 Type 2 diabetes mellitus without complications; I10 Essential (primary) hypertension; Z79.899 Other long term (current) drug therapy
CPT/HCPCS: 71046; 80048; 82962; 84484; 85025; 93005; 96374; 99284

== ENCOUNTER → 2021-10-15 07:00 | Outpatient (CLI) | payer MEDICARE, OTHER, SELFPAY ==
[2021-10-15 10:26] LABS: Chloride 102 mmol/L (98-107)
[2021-10-15 10:27] LABS: Potassium 4.6 mmoL/L (3.5-5.1); Sodium 139 mmol/L (136-145)
[2021-10-15 10:29] LABS: Alanine Aminotransferase 11 U/L (12-78); Anion Gap 11.6 mEq/L (5-15); Aspartate Amino Transferase 31 U/L (17-59); Blood Urea Nitrogen 15 mg/dl (9-20); Carbon Dioxide 30 mmol/L (22.0-30.0); Estimated Glomerular Filt Rate 83 ml/min (>60); GFR (African American) 101 ML/MIN (>60)
[2021-10-15 10:30] LABS: Albumin/Globulin Ratio 1.3 (1.1-1.8); Alkaline Phosphatase 60 U/L (38-126); Bilirubin,Total 0.5 mg/dl (0.2-1.3); Calcium 9.5 mg/dl (8.4-10.2); Chol/HDL Ratio 3.9 (1-3.5); Cholesterol 158 mg/dl (140-200); Glucose 163 mg/dl (74-100); HDL Cholesterol 41 mg/dl (40-60); Triglycerides 263 mg/dl (30-150); VLDL Cholesterol 53 mg/dL (0-40)
[2021-10-15 10:41] LABS: Direct LDL Cholesterol 83.87 mg/dL (100-129)
== END ==
PROVIDERS: Visit Provider Internal Medicine
DX: E78.5 Hyperlipidemia, unspecified (principal)
CPT/HCPCS: 36415; 80053; 80061

== ENCOUNTER → 2021-12-25 16:10 | Outpatient (CLI) | payer MEDICARE, OTHER, SELFPAY ==
--- NOTE | 2021-12-25 16:28 | MR_ITS ---
PROCEDURE INFORMATION: Exam: MR Right Lower Extremity Joint Without Contrast; Ankle Exam date and time: 12/25/2021 4:28 PM Age: 71 years old Clinical indication: Pain; Ankle; Right; Additional info: Right ankle pain TECHNIQUE: Imaging protocol: MR of the Right lower extremity without contrast. Exam focused on the ankle. COMPARISON: CA VENOUS DOPPLER LE RT 06/11/2021 2:50 PM FINDINGS: Bones and cartilage: Incompletely healed appearing fracture distal diaphysis of the fibula with moderate offset and exuberant surrounding periosteal reaction and partial bony healing response. Asymmetric loss of articular cartilage lateral aspect of the ankle mortise joint with probable reactive marrow edema in the adjacent distal tibia and lateral dome of the talus. No linear fracture is seen here. Joint spaces: Effusions in tibiotalar and subtalar articulations. LIGAMENTS: Distal tibiofibular syndesmosis: See Anterior talofibular ligament finding. Anterior talofibular ligament: Suspect remote tear of anterior talofibular ligament which appears thickened. The calcaneal fibular ligament is indistinct and appears torn as well. Previous tear of the anterior tibiofibular ligament with mild widening anteriorly here. Posterior talofibular ligament: Unremarkable. No tear. Calcaneofibular ligament: See Anterior talofibular ligament finding. Deltoid ligament complex: Unremarkable. No tear. TENDONS: Flexor tendons of foot: Unremarkable as visualized. Tibialis posterior tendon: Unremarkable as visualized. Peroneal tendons: Moderate tendinopathy peroneus longus and brevis tendons as they cross behind the lateral malleolus without full-thickness retracted tear. Extensor tendons of foot: Unremarkable as visualized. Tibialis anterior tendon: Unremarkable as visualized. Achilles tendon: Unremarkable as visualized. Tarsal canal (Sinus tarsi): Limited edema. Tarsal tunnel: Unremarkable. Muscles: Unremarkable. Soft tissues: Nonspecific edematous infiltration of subcutaneous fat may be passive edema or cellulitis. Plantar fascia: Plantar fascia is unremarkable. IMPRESSION: 1. Incompletely healed appearing fracture distal diaphysis of the fibula with moderate offset and exuberant surrounding periosteal reaction and partial bony healing response. 2. Asymmetric loss of articular cartilage lateral aspect of the ankle mortise joint with probable reactive marrow edema in the adjacent distal tibia and lateral dome of the talus. No linear fracture is seen here. 3. Suspect remote tear of anterior talofibular ligament which appears thickened. The calcaneal fibular ligament is indistinct and appears torn as well. Previous tear of the anterior tibiofibular ligament with mild widening anteriorly here. 4. Moderate tendinopathy peroneus longus and brevis tendons as they cross behind the lateral malleolus without full-thickness retracted tear. 5. Effusions in tibiotalar and subtalar articulations.
== END ==
PROVIDERS: PCP Family Medicine; Visit Provider Physician Assistant
DX: M25.571 Pain in right ankle and joints of right foot (principal)
CPT/HCPCS: 73721

== ENCOUNTER → 2022-01-08 08:27 | Outpatient (CLI) | payer MEDICARE, OTHER, SELFPAY ==
--- NOTE | 2022-01-08 08:41 | XR_ITS ---
FINAL REPORT CLINICAL HISTORY: blister/sore, hx of infection FINDINGS: RIGHT ANKLE Three views demonstrate no acute fracture or dislocation. There is a chronic fracture of the distal fibula. Fracture line is still visible. Medial and lateral soft tissue swelling is seen. Note is made of vascular calcification. There is a small chronic calcification adjacent to the medial malleolus. IMPRESSION: Chronic appearing findings without acute bony abnormality. Reviewed, Interpreted and Dictated by Lewis Lazo III, MD Transcribed by Lisa Espino Authenticated by Lewis Lazo III, MD on 01/08/2022 12:42:47 PM [facility]
--- NOTE | 2022-01-08 08:41 | XR_ITS ---
FINAL REPORT CLINICAL HISTORY: pain FINDINGS: RIGHT FOOT Three views demonstrate no acute fracture or dislocation. Mild degenerative changes are present. There is a small plantar spur. Mild vascular calcification is identified. No acute soft tissue abnormality is seen. IMPRESSION: Mild degenerative changes. Reviewed, Interpreted and Dictated by Lewis Lazo III, MD Transcribed by Lisa Espino Authenticated by Lewis Lazo III, MD on 01/08/2022 12:42:46 PM [facility]
== END ==
PROVIDERS: PCP Family Medicine; Visit Provider Podiatrist
DX: R52 Pain, unspecified (principal); Z51.89 Encounter for other specified aftercare; M25.571 Pain in right ankle and joints of right foot; M79.671 Pain in right foot; B95.2 Enterococcus as the cause of diseases classified elsewhere
CPT/HCPCS: 73610; 73630; 87070; 87077; 87186; 87205

== ENCOUNTER → 2022-01-14 12:55 | Outpatient (CLI) | payer MEDICARE, OTHER, SELFPAY ==
--- NOTE | 2022-01-14 12:56 | US_ITS ---
FINAL REPORT CLINICAL HISTORY: DECREASED PEDAL PULSES,CLAUDICATION, REST PAIN,BLISTERS RT HEEL,DM,HTN,HLD,PRIOR AMPUTATION LT GREAT TOE FINDINGS: ANKLE-BRACHIAL PRESSURE INDICES Pressure indices are as follows: RIGHT LOWER EXTREMITY: Ankle-brachial pressure index: 1.15 Comments: Normal LEFT LOWER EXTREMITY: Ankle-brachial pressure index: 1.25 Comments: Left calf is noncompressible. CONCLUSION: There is restrictive pattern of bilateral ABIs. Values may be inaccurate. Consider CTA for further evaluation. Reviewed, Interpreted and Dictated by Lewis Lazo III, MD Transcribed by Tayler Ortiz Authenticated by Lewis Lazo III, MD on 01/14/2022 02:47:01 PM [facility]
== END ==
PROVIDERS: PCP Family Medicine; Visit Provider Podiatrist
DX: R09.89 Other specified symptoms and signs involving the circulatory and respiratory systems (principal)
CPT/HCPCS: 93923

== ENCOUNTER 2022-01-15 13:00 | Outpatient (RCR) | payer MEDICARE, OTHER, SELFPAY | END 2022-01-15 13:05 | disposition home or self-care (01) | LOC: PT 13:00 | PROVIDERS: PCP Family Medicine; Visit Provider Orthopaedic Surgery Adult Reconstructive Orthopaedic Surgery | DX: S82.831D Other fracture of upper and lower end of right fibula, subsequent encounter for closed fracture with routine healing (principal) | CPT/HCPCS: 97010; 97014; 97110; 97112; 97140; 97163; 97760; G0283 ==

== ENCOUNTER → 2022-01-23 08:43 | Outpatient (CLI) | payer MEDICARE, OTHER, SELFPAY ==
--- NOTE | 2022-01-23 08:46 | XR_ITS ---
FINAL REPORT CLINICAL HISTORY: Fracture evaluation COMPARISON: January 08, 2022 FINDINGS: RIGHT ANKLE: Three views of the right ankle were obtained. There is extensive callus formation of the healing fracture of the distal right fibular diaphysis. There is prominent soft tissue swelling around the ankle. There is abnormal narrowing of the lateral mortise and widening of the medial mortise, concerning for ligamentous disruption. IMPRESSION: Progressive healing of the distal fibular fracture. Abnormal appearance of the ankle mortise concerning for ligamentous disruption. Reviewed, Interpreted and Dictated by Barry Quintanilla MD Transcribed by Manish Kinney Authenticated by Barry Quintanilla MD on 01/23/2022 10:12:[address] [facility]
== END ==
PROVIDERS: PCP Family Medicine; Visit Provider Podiatrist
DX: S82.401A Unspecified fracture of shaft of right fibula, initial encounter for closed fracture (principal)
CPT/HCPCS: 73610

== ENCOUNTER → 2022-06-10 15:38 | Outpatient (CLI) | payer MEDICARE, OTHER, SELFPAY ==
--- NOTE | 2022-06-10 15:43 | XR_ITS ---
FINAL REPORT CLINICAL HISTORY: F/U fracture, pain in distal tib/fib COMPARISON: January 23, 2022 FINDINGS: RIGHT ANKLE: Three views of the right ankle were obtained. There is a subacute to chronic fracture of the distal fibula diaphysis with increased bone formation. There is an avulsion of the inferior medial malleolus with increased calcification. There are probable subchondral cysts in the distal tibia and lateral talar dome, worse from prior. There is worsening talar tilt. There is medial and lateral soft tissue swelling, worse. There is a chronic calcification superior to the distal talus. Vascular calcifications are present. IMPRESSION: Distal fibula fracture with increased bone formation. Worsening talar tilt. Worsening subchondral cyst formation. Medial and lateral soft tissue swelling, worse. Reviewed, Interpreted and Dictated by Lewis Lazo III, MD Transcribed by Manish Kinney Authenticated and [facility]
== END ==
PROVIDERS: PCP Family Medicine; Visit Provider Podiatrist
DX: M25.571 Pain in right ankle and joints of right foot (principal)
CPT/HCPCS: 73610

== ENCOUNTER → 2022-06-27 12:41 | Outpatient (CLI) | payer MEDICARE, OTHER, SELFPAY ==
--- NOTE | 2022-06-27 12:43 | MR_ITS ---
FINAL REPORT CLINICAL HISTORY: CLOSED FRACTURE OF DISTAL END OF FIBULA COMPARISON: Plain radiographs dated June 10, 2022 FINDINGS: Multiplanar MR imaging of the right ankle was performed without contrast. There is lateral tilt of the talus and remainder of the foot. There are multiple subchondral cysts in the distal tibia and lateral talar dome with adjacent bone marrow edema and overlying cartilage loss. There is a chronic fracture of the distal fibula diaphysis. There is bone marrow edema in the tibia, fibula, talus, and calcaneus. There is thickening of the anterior talofibular ligament likely representing a partial tear. The calcaneofibular ligament is not seen and likely torn. The deltoid ligament has an abnormal appearance favoring a partial tear. The flexor and extensor tendons are intact. The posterior plantar aponeurosis is intact. A moderate tibiotalar joint effusion is seen. The musculature is intact. There is a 15 mm calcification anterior to the tibiotalar joint likely representing a loose body. There is a smaller 7 mm loose body anteriorly. There is widespread soft tissue edema. IMPRESSION: Lateral tilt of the talus and foot. Subchondral cyst formation with overlying cartilage loss in the distal tibia and lateral talar dome. Widespread multifocal bone marrow edema. Probable tear of the calcaneofibular ligament. Likely partial tears of the anterior talofibular and deltoid ligaments. Widespread soft tissue edema. Tibiotalar joint effusion with multiple loose bodies. Reviewed, Interpreted and Dictated by Lewis Lazo III, MD Transcribed by Manish Kinney Authenticated and . [facility]
== END ==
PROVIDERS: PCP Family Medicine; Visit Provider Family Medicine
DX: S82.831A Other fracture of upper and lower end of right fibula, initial encounter for closed fracture (principal); S93.401A Sprain of unspecified ligament of right ankle, initial encounter
CPT/HCPCS: 73721

== ENCOUNTER → 2022-10-11 08:19 | Outpatient (POV) | payer MEDICARE, OTHER, SELFPAY ==
[2022-10-11 08:50] VITALS: BP 135/90; PULSE 78; RESP 20; TEMP 36.4; O2SAT 94; BMI 26.9
[2022-10-11 09:27] LABS: POC Glucose,Bedside 163 (70-110)
--- NOTE | 2022-10-11 11:28 | EXP.PAIN.OV ---
HPI Data of Consult Patient: new to practice Consult date: 10/11/22 Requesting Physician: Krista Dueñas APRN Primary Care Provider: Joe George MD Consult Narrative Reason for consult: Right foot pain History of present illness: Mr. Armstrong is a 71 year old male who presents today as a new patient. Today he rates his pain a 10 out of 10. Patient states his pain is all along his right foot. Patient describes this as a sharp achy sensation that is worse with increased activity or range of motion. Patient does states he does get some pain relief when he sitting. Patient has tried [id number]-lnyvpak Tylenol with minimal improvement. Patient is also used multiple mziw-eaa-yzyqhuq creams such as Biofreeze and icy hot with only temporary relief. Patient has had physical therapy earlier this year however he was only able to complete 3 visits before having to stop due to the worsening pain symptoms. Patient states that his right ankle pain started approximately May 2021. He did have imaging at this time however with no specific findings. Patient states this progressively worsened and around October/November 2021 where he did fall off the ladder causing a nondisplaced fracture. Patient states he was not required to have surgical intervention and just had bracing with frequent follow-ups. Patient states his pain continued to worsen with increased instability. Patient continued to be seen by a orthopedic physician Dr. José and content writer Dr. Culver. Patient has continued to have worsening symptoms along with worsening imaging along his right ankle and right foot. Patient does have to use a brace on a daily basis in order to provide stabilization and support otherwise he frequently stumbles or feels like his ankle is unstable. Patient did see a doctor Sandra in [place] who stated his options for amputation or a right ankle fusion. Patient states that at this time he is waiting due to his uncontrolled diabetes. His last A1c was 8.5 and the physician has recommended that she wants it under 7. Patient did also go to a specialist in [place], Dr. Hernandez who also gave the same options. He is on insulin therapy and does suffer from peripheral diabetic neuropathy. Patient also has a extensive cardiac history and is unable to tolerate NSAIDs. Patient has been prescribed tramadol 50 mg in the past that did provide some improvement of his symptoms. Patient is interested in any options we can provide to improve any pain symptoms. His Juan Manuel is [phone]. Its been reviewed and appropriate. CC: Krista Dueñas APRN [facility] Disclaimer: The information contained in this section may have been updated after the patient was seen, as this information can be updated by other users. 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
== END ==
PROVIDERS: PCP Family Medicine; Visit Provider Nurse Practitioner Family
DX: E11.42 Type 2 diabetes mellitus with diabetic polyneuropathy (principal); R20.8 Other disturbances of skin sensation; G90.529 Complex regional pain syndrome I of unspecified lower limb; M25.571 Pain in right ankle and joints of right foot; M79.671 Pain in right foot
CPT/HCPCS: 82962; 99202; G0463

== ENCOUNTER → 2022-11-07 12:17 | Outpatient (CLI) | payer MEDICARE, SELFPAY ==
--- NOTE | 2022-11-07 12:24 | XR_ITS ---
FINAL REPORT TECHNIQUE: Two views CLINICAL HISTORY: Congestion COMPARISON: 11/05/2020 FINDINGS: No acute pulmonary density is present. Mediastinal contour is normal. Heart size is stable. IMPRESSION: Stable chest exam without acute disease Reviewed, Interpreted and Dictated by Gallo Carlson MD Transcribed by Lisa Espino Authenticated and [facility]
--- NOTE | 2022-11-07 13:05 | ECG_ITS ---
APPROVED REPORT Exam: Resting ECG HR:69 bpm ECG Measurements Heart Rate 69 AXES QRSd 96 QRS 43 QT 365 T 80 QTc 384 Conclusion ATRIAL FIBRILLATION ABNORMAL RHYTHM ECG UNCONFIRMED REPORT Electronically signed by : Shawn Bernard MD 11/07/2022 14:21:19
== END ==
PROVIDERS: PCP Family Medicine; Visit Provider Family Medicine
DX: Z01.818 Encounter for other preprocedural examination (principal)
CPT/HCPCS: 71046; 93005

== ENCOUNTER → 2023-01-03 17:12 | Outpatient (CLI) | payer MEDICARE, SELFPAY ==
--- NOTE | 2023-01-03 | XR_ITS ---
PROCEDURE INFORMATION: Exam: XR Chest Exam date and time: 01/03/2023 5:25 PM Age: 72 years old Clinical indication: Other: Cough; Patient HX: Recent aspiration --- R/O pneumonia TECHNIQUE: Imaging protocol: Radiologic exam of the chest. Views: 2 views. COMPARISON: CR XR CHEST 2V 11/07/2022 12:32 PM FINDINGS: Lungs: Left lung base atelectasis versus pneumonia. Pleural spaces: Unremarkable. No pleural effusion. No pneumothorax. Heart/Mediastinum: Unremarkable. No cardiomegaly. Bones/joints: Unremarkable. IMPRESSION: Left lung base atelectasis versus pneumonia
== END ==
PROVIDERS: PCP Nurse Practitioner Family; Visit Provider Nurse Practitioner Family
DX: R05.9 Cough, unspecified (principal); Z91.89 Other specified personal risk factors, not elsewhere classified
CPT/HCPCS: 71046

== ENCOUNTER → 2023-02-26 06:45 | Outpatient (CLI) | payer MEDICARE, SELFPAY ==
[2023-02-26 08:45] LABS: Basophils % 0.5 % (0.1-2.0); Eosinophils # 0.2 K/mm3 (0.0-0.4); Eosinophils % 2.8 % (0.1-12.0); Lymphocytes # 2.4 K/mm3 (0.7-4.5); Lymphocytes % 30.2 % (10-50); Mean Corpuscular Hemoglobin 27.7 pg (27.0-31.2); Mean Corpuscular Volume 86.5 fl (80-94); Mean Platelet Volume 7.5 fl (7.4-10.4); Monocytes # 0.5 K/mm3 (0.1-1.0); Monocytes % 6.7 % (1.7-9.3); Neutrophils # 4.7 K/mm3 (1.8-7.8); Neutrophils % 59.8 % (37.0-80.0); Platelet Count 321 K/mm3 (142-424); Red Blood Count 5.44 M/mm3 (4.60-6.20); White Blood Count 7.8 K/mm3 (4.8-10.8)
[2023-02-26 08:52] LABS: Activated Partial Thrombo Time 28.2 seconds (22.8-30.6); INR 1.02 (0.9-1.1)
[2023-02-26 09:09] LABS: Anion Gap 17.8 mEq/L (5-15); Blood Urea Nitrogen 15 mg/dl (9-20); Calcium 9.2 mg/dl (8.4-10.2); Carbon Dioxide 24 mmol/L (22.0-30.0); Chloride 102 mmol/L (98-107); Estimated Glomerular Filt Rate 111 ml/min (>60); GFR (African American) 134 ML/MIN (>60); Glucose 198 mg/dl (74-100); Potassium 4.8 mmoL/L (3.5-5.1); Sodium 139 mmol/L (136-145)
== END ==
PROVIDERS: PCP Family Medicine; Visit Provider Family Medicine
DX: Z01.818 Encounter for other preprocedural examination (principal); Z51.81 Encounter for therapeutic drug level monitoring
CPT/HCPCS: 36415; 80048; 85025; 85610; 85730

== ENCOUNTER → 2023-02-27 08:22 | Outpatient (CLI) | payer MEDICARE, SELFPAY | PROVIDERS: PCP Family Medicine; Visit Provider Family Medicine | DX: Z01.818 Encounter for other preprocedural examination (principal) | CPT/HCPCS: 87081 ==

== ENCOUNTER → 2023-03-04 12:47 | Outpatient (CLI) | payer MEDICARE, SELFPAY ==
--- NOTE | 2023-03-04 12:59 | ECG_ITS ---
APPROVED REPORT Exam: Resting ECG HR:70 bpm ECG Measurements Heart Rate 70 AXES QRSd 101 QRS 46 QT 380 T 67 QTc 401 Conclusion ATRIAL FIBRILLATION ABNORMAL RHYTHM ECG UNCONFIRMED REPORT Electronically signed by : Shawn Bernard MD 03/04/2023 21:19:30
--- NOTE | 2023-03-04 13:03 | XR_ITS ---
FINAL REPORT CLINICAL HISTORY: HTN..pre op surgery COMPARISON: 01/03/2023 FINDINGS: TWO-VIEW CHEST The heart size is normal. The mediastinum is normal. The lungs are clear. There is no pneumothorax. There are postoperative changes in the right shoulder. IMPRESSION: No acute cardiopulmonary process. Reviewed, Interpreted and Dictated by Lewis Lazo III, MD Transcribed by Lisa Espino Authenticated and [facility]
--- NOTE | 2023-03-04 13:03 | XR_ITS ---
FINAL REPORT CLINICAL HISTORY: LT JAW PAIN after surgery FINDINGS: Mandible Four views were obtained. There is no acute fracture or dislocation. There are postoperative changes in the left neck. There is no acute bony abnormality. IMPRESSION: No acute process. Reviewed, Interpreted and Dictated by Lewis Lazo III, MD Transcribed by Lisa Espino Authenticated and . [facility]
== END ==
PROVIDERS: PCP Family Medicine; Visit Provider Family Medicine
DX: Z01.818 Encounter for other preprocedural examination (principal); R68.84 Jaw pain
CPT/HCPCS: 70110; 71046; 93005

== ENCOUNTER 2023-12-08 06:56 | Outpatient (CLI) | payer MEDICARE, SELFPAY ==
--- NOTE | 2023-12-08 | XR_ITS ---
FINAL REPORT CLINICAL HISTORY: ABD/BACK PAIN COMPARISON: None FINDINGS: Two views of the abdomen demonstrate a normal bowel gas pattern. There is no significant stool burden. There are no abnormally dilated loops of small bowel. There is no free air. Calcification just lateral to the right L2 transverse process measuring 16 mm may represent renal stone. IMPRESSION: Normal bowel gas pattern. 16 mm calcification may represent renal stone. Consider CT if indicated. Reviewed, Interpreted and Dictated by Alyssa Hameed MD Transcribed by Margaret Molina Authenticated and [facility]
--- NOTE | 2023-12-08 | XR_ITS ---
FINAL REPORT CLINICAL HISTORY: ABD/BACK PAIN COMPARISON: None FINDINGS: THORACIC SPINE AP, lateral, and swimmer's views of the thoracic spine were obtained. There is no prior exam for comparison. There is no acute fracture or malalignment. Mild multilevel degenerative disease. Paraspinal soft tissues are within normal limits. IMPRESSION: Mild multilevel degenerative disease. LUMBOSACRAL Spine 5 views of the lumbosacral spine were obtained. There is no prior for comparison. There is no acute fracture or malalignment. There is grade 1/2 anterior spondylolisthesis of L5 on S1 with minimal retrolisthesis of L4 on L5. Alignment is otherwise normal. Paraspinal soft tissues are within normal limits. IMPRESSION: Multilevel degenerative disc disease, most pronounced at L4-5 and L5-S1. Reviewed, Interpreted and Dictated by Alyssa Hameed MD Transcribed by Margaret Molina Authenticated and [facility]
== END 2023-12-08 23:59 ==
LOC: RAD 06:58
PROVIDERS: PCP Family Medicine; Visit Provider Anesthesiology
DX: R10.9 Unspecified abdominal pain (principal); M54.6 Pain in thoracic spine; M54.50 Low back pain, unspecified
CPT/HCPCS: 72083; 74018

== ENCOUNTER 2023-12-08 09:43 | Outpatient (POV) | payer MEDICARE, SELFPAY ==
--- NOTE | 2023-12-08 09:46 | EXP.PAIN.SOA ---
[facility] Pain Management SOAP Note Subjective:: Patient is a pleasant 73-year-old male who presents today via telehealth visit for follow-up. This visit is occurring at the patient's home and they have given consent for this audio telehealth visit. We are currently treating the patient for CRPS of the lower right extremity, diabetic peripheral neuropathy. Today he rates his pain at 7 out of 10. Patient states his pain is all in his mid to lower abdomen more prominent on the left side with radiating symptoms to his back. Patient does describe this as an aching, throbbing sensation with occasional sharp shooting pains. Patient states this has been going on for approximately 3 to 4 weeks unrelated to any specific trauma or injury that he can think of. Patient states the pain does interfere with his ability to perform activities of daily living such as cooking and cleaning. Patient does state that he has a significant heart history and did call his food order delivery runner and spoke with the PA who immediately wanted to schedule him for a cardiac cath related to this pain. Patient states he is not having any chest pain but it is all lower into his abdomen. Patient does state that he has concerns proceeding forward with the cath due to not having symptoms for this and the high risk. Patient is interested if we can do any additional testing to see what else is going on. 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 His Juan Manuel has been reviewed and is appropriate. Review of Systems: General: No recent weight changes, no fever, no sleep disturbances Respiratory: No cough, no shortness of air, no recurring pulmonary infections Cardiovascular/peripheral vascular: No chest pain, no palpitations, no edema, no shortness of breath Gastrointestinal: No new onset incontinence, normal bowel movements reported Genitourinary: No new onset incontinence Musculoskeletal: Mid/low back pain, abdominal pain Psychiatric: [Normal mood/affect] Neurological: [Denies weakness in extremities], [denies balance issues] Objective:: General: Alert and oriented x3, pleasant and cooperative Lungs: Patient is able to say complete sentences without dyspnea Neurological: Speech clear COMPARISON: None FINDINGS: Two views of the abdomen demonstrate a normal bowel gas pattern. There is no significant stool burden. There are no abnormally dilated loops of small bowel. There is no free air. Calcification just lateral to the right L2 transverse process measuring 16 mm may represent renal stone. IMPRESSION: Normal bowel gas pattern. 16 mm calcification may represent renal stone. Consider CT if indicated. Reviewed, Interpreted and Dictated by Alyssa Hameed MD Transcribed by Margaret Molina Authenticated and [facility] FINDINGS: THORACIC SPINE AP, lateral, and swimmer's views of the thoracic spine were obtained. There is no prior exam for comparison. There is no acute fracture or malalignment. Mild multilevel degenerative disease. Paraspinal soft tissues are within normal limits. IMPRESSION: Mild multilevel degenerative disease. LUMBOSACRAL Spine 5 views of the lumbosacral spine were obtained. There is no prior for comparison. There is no acute fracture or malalignment. There is grade 1/2 anterior spondylolisthesis of L5 on S1 with minimal retrolisthesis of L4 on L5. Alignment is otherwise normal. Paraspinal soft tissues are within normal limits. IMPRESSION: Multilevel degenerative disc disease, most pronounced at L4-5 and L5-S1. Reviewed, Interpreted and Dictated by Alyssa Hameed MD Transcribed by Margaret Molina Authenticated and [facility] Assessment:: CRPS of lower right extremity, diabetic Peripheral neuropathy, mid to low back pain, abdominal pain Plan:: Patient is experiencing significant pain in and around his abdomen that does radiate into his back along the left side. Patient did have limited range of motion of his lumbar spine. We did do x-ray imaging of his abdomen as well as his spine with findings of a 16 mm calcification along the L2 vertebra. I have discussed with the patient that we will do advanced imaging to determine whether or not this is possibly a kidney stone or any other specific findings to explain his acute abdominal/back pain symptoms patient agrees with this plan of care. I will order the patient an MRI of his KUB. We will contact the patient once we have insurance approval and follow-up with the patient after this imaging for reevaluation of symptoms and plan of care. I will also send in refills of his compounded cream. This visit lasted approximately 15 minutes. Patient is an established patient with their informed consent to treat signed and on file. Patient was visually authenticated based on the photograph in the patient?s file. Patient was given a choice of telemedicine visit or office visit; patient chose telemedicine/telehealth visit due to COVID-19 state of emergency. This visit is being conducted via telemedicine telehealth ([place]) in accordance with all applicable laws and regulations. Patient is located in [location] and the treating medical provider is located in [place]. [facility] Disclaimer: The information contained in this section may have been updated after the patient was seen, as this information can be updated by other users. 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
== END 2023-12-08 23:59 | disposition home or self-care (01) ==
PROVIDERS: Visit Provider Nurse Practitioner Family
DX: G90.521 Complex regional pain syndrome I of right lower limb (principal); E11.42 Type 2 diabetes mellitus with diabetic polyneuropathy
CPT/HCPCS: 99212; G0463

== ENCOUNTER 2023-12-10 15:37 | Outpatient (CLI) | payer MEDICARE, SELFPAY ==
[2023-12-10 16:45] LABS: Alanine Aminotransferase 12 U/L (12-78); Albumin Level 3.9 g/dl (3.5-5.0); Albumin/Globulin Ratio 1.3 (1.1-1.8); Alkaline Phosphatase 97 U/L (38-126); Anion Gap 10.1 mEq/L (5-15); Aspartate Amino Transferase 26 U/L (17-59); Bilirubin,Total 0.5 mg/dl (0.2-1.3); Blood Urea Nitrogen 20 mg/dl (9-20); Calcium 9.5 mg/dl (8.4-10.2); Carbon Dioxide 28 mmol/L (22.0-30.0); Chloride 106 mmol/L (98-107); Chol/HDL Ratio 5.5 (1-3.5); Cholesterol 203 mg/dl (140-200); Estimated Glomerular Filt Rate 83 ml/min (>60); GFR (African American) 100 ML/MIN (>60); Globulin 3.1 g/dL (1.3-3.2); Glucose 103 mg/dl (74-100); HDL Cholesterol 37 mg/dl (40-60); Potassium 4.1 mmoL/L (3.5-5.1); Sodium 140 mmol/L (136-145); Triglycerides 341 mg/dl (30-150); VLDL Cholesterol 68 mg/dL (0-40)
[2023-12-10 16:56] LABS: Direct LDL Cholesterol 105.94 mg/dL (100-129)
[2023-12-10 17:15] LABS: Prostate Specific Ag Screen 6.8 ng/ml (0.0-4.0)
[2023-12-10 17:18] LABS: Hemoglobin A1C 7.1 % (4.0-6.0)
== END 2023-12-10 23:59 ==
PROVIDERS: PCP Family Medicine; Visit Provider Family Medicine
DX: I25.10 Atherosclerotic heart disease of native coronary artery without angina pectoris (principal); E11.9 Type 2 diabetes mellitus without complications; E78.5 Hyperlipidemia, unspecified; Z79.4 Long term (current) use of insulin; Z12.5 Encounter for screening for malignant neoplasm of prostate
CPT/HCPCS: 36415; 80053; 80061; 83036; G0103

== ENCOUNTER 2023-12-12 07:05 | Outpatient (CLI) | payer MEDICARE, SELFPAY ==
--- NOTE | 2023-12-12 07:09 | CT_ITS ---
FINAL REPORT TECHNIQUE: Thin section axial images were obtained from the lung bases to the pubic symphysis without IV contrast. Coronal and sagittal reconstruction images were obtained from the axial data. Exam was performed using dose reduction technique. CLINICAL HISTORY: RENAL STONE, LEFT FLANK PAIN COMPARISON: None FINDINGS: Present, measuring 6 mm in size, best seen on image #13. There are no renal or ureteral stones. There is no hydronephrosis, however there is bilateral nonspecific perinephric stranding present. Gallstones are present in the gallbladder. The remaining unenhanced solid abdominal organs are unremarkable. There is no evidence of small bowel obstruction. The appendix is normal. There is diverticulosis noted throughout the entire colon, most prominent in the distal colon. No evidence of acute diverticulitis is seen. There is no lymphadenopathy or ascites. No acute osseous abnormality is identified. IMPRESSION: No renal or ureteral stones. No hydronephrosis. Right lower lobe 6 mm nodule as described above. Recommend follow-up chest CT after risk stratification per Fleischner criteria. Gallstones are present in the gallbladder. No acute abnormality of the abdomen or pelvis. Reviewed, Interpreted and Dictated by Alyssa Hameed MD Transcribed by Deann Lopez Authenticated and [facility] [place]
== END 2023-12-12 23:59 ==
LOC: RAD 07:06
PROVIDERS: PCP Family Medicine; Visit Provider Family Medicine
DX: N20.0 Calculus of kidney (principal)
CPT/HCPCS: 74176

== ENCOUNTER 2023-12-17 11:16 | Outpatient (CLI) | payer MEDICARE, SELFPAY ==
[2023-12-17 11:22] LABS: Microscopic, Urine URINE MICROSCOPIC (MICROSCOPIC)
[2023-12-17 11:54] LABS: Basophils # 0.1 K/mm3 (0-0.2); Basophils % 0.6 % (0.1-2.0); Eosinophils # 0.1 K/mm3 (0.0-0.4); Eosinophils % 0.7 % (0.1-12.0); Hematocrit 54.8 % (42.0-52.0); Hemoglobin 17.5 g/dL (14.1-18.0); Lymphocytes # 3.2 K/mm3 (0.7-4.5); Lymphocytes % 18.1 % (10-50); Mean Corpuscular HGB Conc 31.9 g/dL (31.8-35.4); Mean Corpuscular Hemoglobin 28.4 pg (27.0-31.2); Monocytes # 1.3 K/mm3 (0.1-1.0); Monocytes % 7.6 % (1.7-9.3); Neutrophils # 12.7 K/mm3 (1.8-7.8); Neutrophils % 72.9 % (37.0-80.0); Platelet Count 252 K/mm3 (142-424); Red Blood Count 6.15 M/mm3 (4.60-6.20); Red Cell Distribution Width 15.4 % (11.5-17.5); White Blood Count 17.5 K/mm3 (4.8-10.8)
[2023-12-17 11:59] LABS: Appearance,Urine CLEAR (Clear); Blood, Urine TRACE-I (Negative); Color,Urine YELLOW (Yellow); Glucose,Urine (UA) 3+ (Negative); Ketones,Urine Negative (Negative); Leukocyte Esterase,Urine Negative (Negative); Nitrate,Urine Negative (Negative); Protein,Urine 2+ (Negative); Specific Gravity, Urine 1.025 (1.005-1.030); Urobilinogen,Urine 0.2 EU/dl (0.2)
[2023-12-17 12:01] LABS: MANUAL DIFFERENTIAL MANUAL DIFFERENTIAL (MANUAL DIFF)
[2023-12-17 12:06] LABS: Bilirubin,Urine 1+ (Negative)
[2023-12-17 12:17] LABS: Amylase 45 U/L (30-110); Lipase 29 U/L (23-300)
[2023-12-17 12:21] LABS: Bacteria,Urine Trace /lpf; Squamous Epithelial Cell,Urine Occasional #/hpf (0-5)
[2023-12-17 12:25] LABS: C-Reactive Protein 97.7 mg/L (0-4)
[2023-12-17 12:31] LABS: Lymphocytes % 22 % (10-50); Monocytes % 5 % (2-9); Neutrophils % 73 % (42-76); Platelet Estimate Normal; RBC Morphology Normal; Total Cells Counted 100
== END 2023-12-17 23:59 ==
LOC: LAB 11:17
PROVIDERS: PCP Family Medicine; Visit Provider Nurse Practitioner Family
DX: R10.9 Unspecified abdominal pain (principal)
CPT/HCPCS: 36415; 81001; 82150; 83690; 85007; 85025; 86140

== ENCOUNTER 2024-01-12 14:02 | Outpatient (CLI) | payer MEDICARE, SELFPAY ==
[2024-01-12 15:22] LABS: Microscopic, Urine URINE MICROSCOPIC (MICROSCOPIC)
[2024-01-12 15:38] LABS: Prostate Specific Ag, Diagnost 8.42 ng/ml (0.0-4.0)
[2024-01-12 15:40] LABS: Appearance,Urine CLEAR (Clear); Bilirubin,Urine Negative (Negative); Blood, Urine TRACE-I (Negative); Color,Urine YELLOW (Yellow); Glucose,Urine (UA) 3+ (Negative); Ketones,Urine Negative (Negative); Leukocyte Esterase,Urine Negative (Negative); Nitrate,Urine Negative (Negative); PH,Urine 5.5 (5.0-8.5); Protein,Urine 2+ (Negative); Specific Gravity, Urine 1.025 (1.005-1.030); Urobilinogen,Urine 0.2 EU/dl (0.2)
[2024-01-12 16:02] LABS: Squamous Epithelial Cell,Urine Occasional #/hpf (0-5)
[2024-01-14 14:03] LABS: Miscellaneous Test NEGATIVE
== END 2024-01-12 23:59 ==
PROVIDERS: PCP Family Medicine; Visit Provider Urology
DX: N39.0 Urinary tract infection, site not specified; R97.20 Elevated prostate specific antigen [PSA]; B97.7 Papillomavirus as the cause of diseases classified elsewhere; B96.89 Other specified bacterial agents as the cause of diseases classified elsewhere
CPT/HCPCS: 36415; 81001; 84153; 87086

== ENCOUNTER 2024-01-26 10:07 | Outpatient (CLI) | payer MEDICARE, SELFPAY ==
[2024-01-26 10:22] LABS: Basophils # 0.1 K/mm3 (0-0.2); Basophils % 1.1 % (0.1-2.0); Eosinophils # 0.3 K/mm3 (0.0-0.4); Eosinophils % 3.6 % (0.1-12.0); Hematocrit 52.6 % (42.0-52.0); Hemoglobin 16.6 g/dL (14.1-18.0); Lymphocytes # 2.1 K/mm3 (0.7-4.5); Lymphocytes % 25.3 % (10-50); Mean Corpuscular HGB Conc 31.5 g/dL (31.8-35.4); Mean Corpuscular Volume 88.7 fl (80-94); Mean Platelet Volume 7.6 fl (7.4-10.4); Monocytes # 0.6 K/mm3 (0.1-1.0); Monocytes % 7.7 % (1.7-9.3); Neutrophils # 5.2 K/mm3 (1.8-7.8); Neutrophils % 62.2 % (37.0-80.0); Platelet Count 233 K/mm3 (142-424); Red Blood Count 5.92 M/mm3 (4.60-6.20); Red Cell Distribution Width 15.6 % (11.5-17.5); White Blood Count 8.3 K/mm3 (4.8-10.8)
[2024-01-26 15:56] LABS: Microscopic, Urine URINE MICROSCOPIC (MICROSCOPIC)
[2024-01-26 17:12] LABS: Appearance,Urine CLEAR (Clear); Bilirubin,Urine Negative (Negative); Blood, Urine TRACE-I (Negative); Color,Urine YELLOW (Yellow); Glucose,Urine (UA) 2+ (Negative); Ketones,Urine Negative (Negative); Leukocyte Esterase,Urine Negative (Negative); Nitrate,Urine Negative (Negative); PH,Urine 5.5 (5.0-8.5); Protein,Urine 3+ (Negative); Specific Gravity, Urine >= 1.030 (1.005-1.030); Urobilinogen,Urine 0.2 EU/dl (0.2)
[2024-01-26 17:22] LABS: RBC,Urine Occasional #/hpf (0-3); Squamous Epithelial Cell,Urine Occasional #/hpf (0-5); WBC,Urine Occasional #/hpf (0-3)
== END 2024-01-26 23:59 ==
LOC: LAB 10:08
PROVIDERS: PCP Family Medicine; Visit Provider Urology
DX: N52.9 Male erectile dysfunction, unspecified; N40.0 Benign prostatic hyperplasia without lower urinary tract symptoms
CPT/HCPCS: 36415; 81001; 85025

== ENCOUNTER 2024-04-07 10:21 | Day surgery (SDC) | payer MEDICARE, SELFPAY ==
[2024-04-06 10:19] VITALS: BMI 26.9
[2024-04-07] VITALS (8 sets, daily range): BP systolic 90–154; BP diastolic 53–95; PULSE 53–75; RESP 16–18; TEMP 36.2–36.3; O2SAT 91–97; BMI 26.9
[2024-04-07] MEDS: LACTATED RINGERS 1000ML 1,000 ML 25 ML IV (11:20)
[2024-04-07 11:43] LABS: POC Glucose,Bedside 79 (70-110)
--- NOTE | 2024-04-07 13:02 | EXP.ANES.CKL ---
[facility] Disclaimer: The information contained in this section may have been updated after the patient was seen, as this information can be updated by other users. 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 caffeine: Yes [facility] Anesthesia Checklist Patient Identification Patient Identification: Arm Band, Family and Verbal (Name & ) Structural Data Admitted From: Home Planned Operative Procedure/s: Colonoscopy Consent for Planned Operative Procedure(s) Verified: Yes Verified Documents: Surgical Consent and History and Physical NPO Status Verified Time NPO: 05:30 Chart Verification Results Verified: CBC, BMP, ECG and Chest Xray Additional verifications Fingerstick Blood Glucose: 79 Patient : No Anesthesia Reactions: No Hx Blood Transfusions: No Blood Transfusion Reaction: No Previous Colonoscopy: Yes Cardiovascular Assessment Pulse Rhythm: Irregular Peripheral Edema: No Airway Assessment Mallampati Score:: Class II C-Spine Mobility Assessed: Yes (FROM) TMJ Mobility Assessed: Yes Dentition: Good Dentition (Nothing loose per pt.) Neurological Assessment Level of Consciousness: Awake, Alert, Appropriate and Follows Commands Hx Seizures: No Numbness or tingling in extremities: Yes (Right LE) Anesthesia Plan Anesthesia Risk discussed: Yes Anesthesia Plan: Verified ASA Class: III Anesthesia Type: MAC
--- NOTE | 2024-04-07 13:30 | HMH.SCOPE ---
Procedure: Date: 04/07/24 Patient Date of :: 1950 Procedure Performed:: Colonoscopy Indications:: The patient is a 73-year-old who presents for screening colonoscopy Performing Provider:: Sarabjit Reddy MD Referring Provider:: Sammy George MD Sedation:: See RN records Procedure:: After placing the patient in the left lateral decubitus position, the colonoscopy was gently inserted into the rectum and under direct visualization advanced to the cecum which was identified by transillumination in the right lower quadrant, identification of the ileocecal valve, appendiceal orifice, and cecal strap. Color, texture, mucosa, and anatomy of the colon were carefully examined with the scope. Findings:: The quality of the bowel preparation was excellent. There were two sessile polyps measuring 3 to 4 mm in size in the rectum. The polyps were removed with a cold forceps. There was diverticulosis of the ascending colon, hepatic flexure, descending colon and sigmoid colon. The remaining colon appeared normal. There were frequent colon spasms. There were internal hemorrhoids seen on retroflexion view of the rectum. Impression: Polyps of rectum Extensive diverticulosis Recommendations:: Await pathology results Repeat colonoscopy in 5 years for surveillance purposes Complications:: None Estimated blood obtained (mL): 0 Colonoscopy Component Colonoscopy Component Was a colonoscopy performed during today's procedure?: Yes Recommended follow up colonoscopy of at least 10 years?: Yes
[2024-04-07 14:05] LABS: POC Glucose,Bedside 54 (70-110)
[2024-04-07 15:18] LABS: POC Glucose,Bedside 58 (70-110)
[2024-04-07 15:18] LABS: POC Glucose,Bedside 69 (70-110)
== END 2024-04-07 14:30 | disposition home or self-care (01) ==
PROVIDERS: PCP Family Medicine; Visit Provider Internal Medicine
PROC: 0DJD8ZZ Inspection of Lower Intestinal Tract, Via Natural or Artificial Opening Endoscopic (ICD-10-PCS; CPT 45378; principal; 2024-04-07 11:30)
DX: Z12.11 Encounter for screening for malignant neoplasm of colon (principal); D12.7 Benign neoplasm of rectosigmoid junction; K57.30 Diverticulosis of large intestine without perforation or abscess without bleeding; E11.8 Type 2 diabetes mellitus with unspecified complications
CPT/HCPCS: 45380; 82962; 88305; J7120

== ENCOUNTER 2024-11-01 11:58 | Outpatient (CLI) | payer MEDICARE, OTHER, SELFPAY ==
--- NOTE | 2024-11-01 12:04 | XR_ITS ---
FINAL REPORT CLINICAL HISTORY: RT ANKLE PAIN COMPARISON: None FINDINGS: RIGHT ANKLE 3 views of the right ankle were obtained. Fusion hardware is identified that bridges the anterior distal tibia to the talus. 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 Healed fracture deformities are noted as well as bony sclerosis in the subtalar joint. There is no acute fracture or dislocation. The mortise is intact. Visualized joint spaces are normally aligned. Soft tissues are unremarkable. IMPRESSION: Postoperative changes as described, without acute bony abnormality. Reviewed, Interpreted and Dictated by Barry Quintanilla MD Transcribed by Deann Lopez Authenticated and [facility]
--- NOTE | 2024-11-01 12:28 | XR_ITS ---
FINAL REPORT CLINICAL HISTORY: RT ANKLE PAIN COMPARISON: None FINDINGS: RIGHT FOOT 3 views of the right foot were obtained. Postoperative changes are present of a tibiotalar fusion and synostosis of the distal tibia and fibula. A small plantar calcaneal spur is noted. There is an ovoid lucency in the posterior calcaneus, measuring up to 3.4 cm in size, that may represent an intraosseous lipoma. There is no acute fracture or dislocation. Visualized joint spaces are normally aligned. Soft tissues are unremarkable. IMPRESSION: Postoperative changes as described. Ovoid lucency in the posterior calcaneus, that may represent an intraosseous lipoma. Reviewed, Interpreted and Dictated by Barry Quintanilla MD Transcribed by Deann Lopez Authenticated and [facility]
== END 2024-11-01 23:59 | disposition home or self-care (01) ==
LOC: RAD 11:59
PROVIDERS: PCP Family Medicine; Visit Provider Nurse Practitioner Family
DX: M25.571 Pain in right ankle and joints of right foot (principal)
CPT/HCPCS: 73610; 73630

== ENCOUNTER 2025-01-01 08:13 | Outpatient (CLI) | payer MEDICARE, OTHER, SELFPAY ==
--- NOTE | 2025-01-01 08:32 | ECG_ITS ---
APPROVED REPORT Exam: Resting ECG HR:84 bpm ECG Measurements Heart Rate 84 AXES QRSd 93 QRS 56 QT 369 T -4 QTc 410 Conclusion ATRIAL FIBRILLATION NONSPECIFIC T-WAVE ABNORMALITY ABNORMAL RHYTHM ECG UNCONFIRMED REPORT Electronically signed by : Shawn Bernard MD 01/01/2025 19:33:02
[2025-01-01 08:36] LABS: Basophils # 0.1 K/mm3 (0-0.2); Basophils % 0.4 % (0.1-2.0); Eosinophils # 0.2 K/mm3 (0.0-0.4); Eosinophils % 2.1 % (0.1-12.0); Hematocrit 48.2 % (42.0-52.0); Hemoglobin 15.9 g/dL (14.1-18.0); Lymphocytes # 2.5 K/mm3 (0.7-4.5); Lymphocytes % 22.6 % (10-50); Mean Corpuscular Hemoglobin 27.7 pg (27.0-31.2); Mean Corpuscular Volume 83.8 fl (80-94); Mean Platelet Volume 9.1 fl (7.4-10.4); Monocytes # 0.9 K/mm3 (0.1-1.0); Monocytes % 7.8 % (1.7-9.3); Neutrophils # 7.4 K/mm3 (1.8-7.8); Neutrophils % 66.7 % (37.0-80.0); Platelet Count 415 K/mm3 (142-424); Red Blood Count 5.75 M/mm3 (4.60-6.20); Red Cell Distribution Width 14.2 % (11.5-17.5); White Blood Count 11.1 K/mm3 (4.8-10.8)
[2025-01-01 08:45] LABS: Anion Gap 12.6 mEq/L (5-15); Blood Urea Nitrogen 16 mg/dl (9-20); Calcium 9.5 mg/dl (8.4-10.2); Carbon Dioxide 26 mmol/L (22.0-30.0); Chloride 107 mmol/L (98-107); Estimated Glomerular Filt Rate 65 ml/min (>60); GFR (African American) 79 ML/MIN (>60); Glucose 114 mg/dl (74-100); Potassium 4.6 mmoL/L (3.5-5.1); Sodium 141 mmol/L (136-145)
== END 2025-01-01 23:59 | disposition home or self-care (01) ==
PROVIDERS: PCP Family Medicine; Visit Provider Family Medicine
DX: Z01.818 Encounter for other preprocedural examination (principal)
CPT/HCPCS: 36415; 80048; 85025; 87081; 93005

== ENCOUNTER 2025-01-08 21:55 | Emergency (ER) | payer MEDICARE, OTHER, SELFPAY ==
[2025-01-08 22:03] VITALS: BP 162/97; PULSE 89; RESP 14; TEMP 36.7; O2SAT 95; BMI 26.9
[2025-01-08 22:05] VITALS: BP 148/90; PULSE 88; RESP 18; O2SAT 95
--- NOTE | 2025-01-08 22:09 | XR_ITS ---
PROCEDURE INFORMATION: Exam: XR Chest Exam date and time: 01/08/2025 10:59 PM Age: 74 years old Clinical indication: Shortness of breath; Additional info: Short of breath TECHNIQUE: Imaging protocol: Radiologic exam of the chest. Views: 1 view. COMPARISON: CR XR CHEST 2V 03/04/2023 1:08 PM FINDINGS: Lungs: Unremarkable. No consolidation. Pleural spaces: Unremarkable. No pleural effusion. No pneumothorax. Heart/Mediastinum: Unremarkable. No cardiomegaly. Bones/joints: Unremarkable. IMPRESSION: No acute findings.
--- NOTE | 2025-01-08 22:13 | CT_ITS ---
PROCEDURE INFORMATION: Exam: CT Head Without Contrast Exam date and time: 01/08/2025 10:33 PM Age: 74 years old Clinical indication: Dizziness TECHNIQUE: Imaging protocol: Computed tomography of the head without contrast. Radiation optimization: All CT scans at this facility use at least one of these dose optimization techniques: automated exposure control; mA and/or kV adjustment per patient size (includes targeted exams where dose is matched to clinical indication); or iterative reconstruction. COMPARISON: No relevant prior studies available. FINDINGS: Brain: Chronic microvascular ischemic disease without acute intraparenchymal hemorrhage and no obvious acute ischemic stroke. No intra-or extra-axial fluid collection, no supra-or infratentorial mass, no mass effect or midline shift. Cerebral ventricles: Mildly dilated ventricles, sulci and basal cisterns without evidence of hydrocephalus. Paranasal sinuses: No significant mucoperiosteal thickening in the visualized paranasal sinuses. Mastoid air cells: No mastoid effusion. Bones: Visualized skull bones are grossly normal. Soft tissues: Atherosclerotic calcification of the intracranial internal carotid/vertebral arteries. IMPRESSION: 1. Chronic microvascular ischemic disease and generalized atrophy without acute intracranial abnormality. 2. No evidence of acute hemorrhage, mass lesion or obvious acute ischemic infarction.
--- NOTE | 2025-01-08 22:14 | CT_ITS ---
PROCEDURE INFORMATION: Exam: CT Abdomen And Pelvis With Contrast Exam date and time: 01/08/2025 10:45 PM Age: 74 years old Clinical indication: Abdominal pain TECHNIQUE: Imaging protocol: Computed tomography of the abdomen and pelvis with contrast. Radiation optimization: All CT scans at this facility use at least one of these dose optimization techniques: automated exposure control; mA and/or kV adjustment per patient size (includes targeted exams where dose is matched to clinical indication); or iterative reconstruction. Contrast material: ISOVUE; Contrast volume: 75 ml; Contrast route: IV; COMPARISON: CT ABDOMEN PELVIS WO CON 12/12/2023 7:11 AM FINDINGS: Liver: Mild fatty infiltration. No mass. Gallbladder and biliary ducts: Tiny gallstones/debris without wall thickening. No biliary ductal dilatation. Pancreas: Normal. No ductal dilation. Spleen: Normal. No splenomegaly. Adrenal glands: Normal. No mass. Kidneys and ureters: Left renal cortical scarring. Unremarkable right kidney. No hydronephrosis. No mass. Stomach and bowel: Colonic diverticulum most pronounced along sigmoid colonic segment without pericolonic fat stranding. Nonobstructive pattern. Appendix: No evidence of appendicitis. Intraperitoneal space: Unremarkable. No free air. No significant fluid collection. Vasculature: Atherosclerotic calcification of aortoiliac arteries without aneurysm. Lymph nodes: Unremarkable. No enlarged lymph nodes. Urinary bladder: Unremarkable as visualized. Reproductive: Unremarkable as visualized. Bones/joints: Chronic L5 on S1 anterolisthesis with chronic bilateral L5 pars interarticularis defects. No acute findings. Soft tissues: Unremarkable. IMPRESSION: 1. No acute findings. 2. Cholelithiasis/debris. 3. Colonic diverticulosis. 4. Mild fatty liver infiltration.
[2025-01-08 22:15] LABS: Basophils # 0.1 K/mm3 (0-0.2); Basophils % 0.9 % (0.1-2.0); Eosinophils % 0.2 % (0.1-12.0); Hematocrit 46.4 % (42.0-52.0); Lymphocytes # 0.9 K/mm3 (0.7-4.5); Lymphocytes % 14.6 % (10-50); Mean Corpuscular HGB Conc 34.5 g/dL (31.8-35.4); Mean Corpuscular Hemoglobin 28.3 pg (27.0-31.2); Mean Platelet Volume 9.3 fl (7.4-10.4); Monocytes # 0.5 K/mm3 (0.1-1.0); Neutrophils # 4.9 K/mm3 (1.8-7.8); Neutrophils % 75.8 % (37.0-80.0); Platelet Count 196 K/mm3 (142-424); Red Blood Count 5.66 M/mm3 (4.60-6.20); Red Cell Distribution Width 14.8 % (11.5-17.5); White Blood Count 6.4 K/mm3 (4.8-10.8)
--- NOTE | 2025-01-08 22:21 | [facility]H.EDCP ---
Discharge Plan Disposition Patient Disposition: Home, Self-Care Condition: Good Prescriptions Prescriptions: No Action metoprolol succinate 100 mg tablet extended release 24 hr 100 mg PO DAILY Patient Comments: TAKE 1 TABLET BY MOUTH ONCE DAILY apixaban 5 mg tablet 5 mg PO DAILY Patient Comments: TAKE 1 TABLET BY MOUTH EVERY 12 HOURS icosapent ethyl 1 gram capsule 1 g PO DAILY insulin asp prt-insulin aspart 100 unit/mL (70-30) insulin pen 34 unit SQ TID Patient Comments: INJECT 30 UNITS SUBCUTANEOUSLY THREE TIMES DAILY Entresto 49-51 mg tablet 1 tab PO BID Patient Comments: TAKE 1 TABLET BY MOUTH TWICE DAILY peg 3350-electrolytes [GaviLyte-G] 236-22.74-6.74 -5.86 gram recon soln 240 ml PO Q10M Qty: 4000 0RF Rx Instructions: follow mailed instructions. pharmacy may substitute if needed. atorvastatin 40 MG tablet 40 mg PO HS Qty: 30 5RF Jardiance 10 mg Tablet 10 mg PO DAILY Entresto 24-26 mg Tablet 24 tab PO DAILY Referrals Follow up/Referrals: Lewis Snyder MD [Staff Physician] - See instructions (Intermittently symptomatic cholelithiasis) Joe George MD [Primary Care Provider] - See instructions Activity Restrictions/Add. Instructions Additional Instructions/Restrictions: You were evaluated in the ER and are believed to be appropriate for discharge at this time. Continue all home medications as previously prescribed. Please make an appointment with your primary care doctor for reevaluation in 2-3 days. You do have some gallstones which may be contributing to your intermittent symptoms. Please call Dr. Snyder's office for general surgery follow-up. Return to the ER with any new, worsening, or otherwise concerning symptoms. Clinical Impressions Clinical Impression: Cholelithiasis, Hypertension, Atrial fibrillation Print Language Print Language: Sammarinese Discharge ED Provider: Ovidio Hector HPI <Laura Hudson (ED), CONCRETE JOURNEYMAN - Last Filed: 01/08/25 22:45> General Chief Complaint: Chest Pain Stated Complaint: Chest Pain Time Seen by Provider: 01/08/25 22:02 Mode of Arrival: Ambulatory Source of Information: Patient and Spouse Description of Symptoms (Recalled from ER Triage Doc. by RN): pt presents with c/o abd pain that radiates into back with chest pain that began x1 day ago History of Present Illness HPI narrative: This is a 74-year-old male who presents to the ED today for complaint of abdominal pain that goes around to his back in the form of a bandlike pain. States that he has been having elevated blood pressure in the systolics 200 for the last 2 days. states that earlier today he was visibly sweating. He has had been having headaches for a week. He also has been dizzy this past week according to , according to patient it has been 2 weeks. Patient states that he has been in bed all day. He does have cardiac issues. 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 Pacheco. Patient has history of A-fib and he is on Eliquis. He does not have any stents according to his . He is a diabetic and has had a toe on his left foot removed and has had 2 ankle surgeries. He has not taken any nitro for his chest pain. MD complaint: chest pain Onset (ago): day(s) Duration: intermittent Risk Factors for CAD: Hypertension and Diabetes Related Data Home Medications ?Medication ?Instructions ?Recorded ?Confirmed apixaban 5 mg tablet 5 mg PO DAILY Blood thinner 11/06/20 04/07/24 icosapent ethyl 1 gram capsule 1 g PO DAILY Cholesterol 11/06/20 04/07/24 insulin aspar prot-insulin aspart 34 unit SQ TID Diabetes 11/06/20 04/07/24 100 unit/mL (70-30) subcutaneous pen metoprolol succinate 100 mg 100 mg PO DAILY blood pressure 11/06/20 04/07/24 tablet,extended release 24 hr sacubitril 49 mg-valsartan 51 mg 1 tab PO BID 12/09/23 04/07/24 tablet (Entresto) empagliflozin 10 mg tablet 10 mg PO DAILY 04/06/24 04/07/24 (Jardiance) sacubitril 24 mg-valsartan 26 mg 24 tab PO DAILY 04/06/24 04/07/24 tablet (Entresto) Previous Rx's ?Medication ?Instructions ?Recorded atorvastatin 40 mg tablet 40 mg PO HS Cholesterol #30 tabs 12/10/23 peg 3350-electrolytes 236 240 ml PO Q10M bowel prep #4,000 mL 03/24/24 gram-22.74 gram-6.74 gram-5.86 gram solution (GaviLyte-G) Allergies Allergy/AdvReac Type Severity Reaction Status Date / Time No Known Allergies Allergy Verified 04/07/24 11:25 PFSH <Laura Hudson (ED), CONCRETE JOURNEYMAN - Last Filed: 01/08/25 22:45> [facility] Disclaimer: The information contained in this section may have been updated after the patient was seen, as this information can be updated by other users. 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 caffeine: Yes Have you lived/traveled outside US in past 30 days?: No Contact w/someone who lives/traveled outside US past 30 days?: No Exposure to someone with infectious disease in past 14 days?: No Do you have a fever (greater than 100.4 F or 38 C)?: No Have you tested positive for COVID-19: No Exposed to someone with COVID-19 in past 14 days?: No Do you have a sore throat?: No Do you have a cough?: No Do you have any weakness?: No Do you have any diarrhea?: No Are you experiencing any unusual bleeding?: No Do you have any muscle aches/pain?: No Do you have any abdominal pain?: No Are you experiencing loss of taste or smell?: No Other Medical History Have you received the Flu Vaccine for this season: Yes Have you received the Pneumonia Vaccine: Yes <Laura Hudson (ED), CONCRETE JOURNEYMAN - Last Filed: 01/08/25 22:45> ROS Obtained: Yes Systems reviewed as appropriate & no additional complaints except as documented Constitutional Constitutional: Reports as per HPI Physical Exam <Laura Hudson (ED), CONCRETE JOURNEYMAN - Last Filed: 01/08/25 22:45> General General appearance: alert Head Head exam: normocephalic Eye Eye exam: Present normal appearance and PERRL ENT ENT exam: Present mucous membranes moist Neck Neck exam: Present trachea midline Chest Chest inspection: Present symmetric chest wall rise Respiratory Respiratory exam: Present normal lung sounds bilaterally Cardiovascular Cardiovascular exam: Present irregular rhythm, +S1 and +S2 Abdominal Exam Abdominal exam: Present soft and normal bowel sounds Neurological Exam Neurological exam: Present alert and oriented X3 Psychiatric Psychiatric exam: Present normal affect and normal mood Skin Skin exam: Present warm and dry HEART Score <Laura Hudson (ED), CONCRETE JOURNEYMAN - Last Filed: 01/08/25 22:45> HEART Score HEART Score assessment performed?: Yes History (anamnesis): Moderately suspicious ECG: Non-specific disturbance Age: >65 years Risk factors: 3 or more risk factors <Lisa Springer MD - Last Filed: 01/09/25 02:54> HEART Score Troponin: </= normal limit HEART Score: 6 <Ovidio Hector MD - Last Filed: 01/09/25 00:13> HEART Score HEART Score: 0 Critical Care <Laura Hudson (ED), CONCRETE JOURNEYMAN - Last Filed: 01/08/25 22:45> Critical Care Time Critical Care Time: No Medical Decision Making <Laura Hudson (ED), CONCRETE JOURNEYMAN - Last Filed: 01/08/25 22:45> Juan Manuel Inquiry Pt receiving controlled substance: No Vital Signs Vital Signs: 01/08/25 22:03 01/08/25 22:05 01/09/25 00:18 Temperature 98.1 F 98.0 F Temperature Source Oral Temporal Artery Scan Pulse Rate 88 94 H Pulse Rate [Radial] 89 Respiratory Rate 14 18 18 Blood Pressure 148/90 H 129/87 Blood Pressure [Right Arm] 162/97 H Blood Pressure Mean [Right Arm] 118 Blood Pressure Position [Right Arm] Sitting 02 Sat by Pulse Oximetry 95 95 Oxygen Delivery Method Room Air Room Air Room Air Lab Data Labs: Lab Results 01/08/25 22:05: WBC 6.4, RBC 5.66, Hgb 16.0, Hct 46.4, MCV 82.0, MCH 28.3, MCHC 34.5, RDW 14.8, Plt Count 196, MPV 9.3, Neut % (Auto) 75.8, Lymph % (Auto) 14.6, [place] % (Auto) 8.0, Eos % (Auto) 0.2, Baso % (Auto) 0.9, Neut # (Auto) 4.9, Lymph # (Auto) 0.9, [place] # (Auto) 0.5, Eos # (Auto) 0.0, Baso # (Auto) 0.1, Sodium 135 L, Potassium 4.4, Chloride 101, Carbon Dioxide 25, Anion Gap 13.4, BUN 18, Creatinine 1.20, Estimated Creat Clear 73, Estimated GFR 59, Est GFR ( Amer) 72, Glucose 101 H, Calcium 9.7, Magnesium 1.7, Total Bilirubin 0.8, AST 38, ALT 15, Alkaline Phosphatase 88, Troponin I < 0.01, Total Protein 7.2, Albumin 3.7, Globulin 3.5 H, Albumin/Globulin Ratio 1.1, Lipase 39 01/08/25 22:05 01/08/25 22:05 Response Orders (Tests/Meds): ED MEDICATIONS Discontinued Medications Generic Name Dose Route Start Last Admin Trade Name Freq PRN Reason Stop Dose Admin Iopamidol 75 ml 01/08/25 22:56 01/08/25 23:05 Iopamidol-370 (76%);100ml Bottle IV 01/08/25 22:57 75 ml ONCE ONE Administration Pantoprazole Sodium 40 mg 01/08/25 22:15 01/08/25 22:22 Pantoprazole 40mg Vial IV 01/08/25 22:16 40 mg ONCE ONE Administration Sodium Chloride 10 ml 01/08/25 22:56 01/08/25 23:05 Sodium Chloride 0.9% 10ml Syr (Rad Only) IV 02/07/25 22:55 10 ml NEEDED PRN Administration Maintain IV Site ORDERS Category Date Time Status CT abdomen pelvis w con Stat Cat Scan 01/08/25 22:[address] head/brain wo con Stat Cat Scan 01/08/25 22:13 Completed Chest XR -- portable [XR chest portable] Stat Exams 01/08/25 22:09 Completed CBC [Complete Blood Count Auto Diff] Stat Lab 01/08/25 22:05 Completed Comprehensive Metabolic Panel Stat Lab 01/08/25 22:05 Completed Lipase Stat Lab 01/08/25 22:05 Completed Magnesium Stat Lab 01/08/25 22:05 Completed Trop I [Troponin I] Stat Lab 01/08/25 22:05 Completed <Lisa Springer MD - Last Filed: 01/09/25 02:54> Vital Signs Vital Signs: 01/08/25 22:03 01/08/25 22:05 01/09/25 00:18 Temperature 98.1 F 98.0 F Temperature Source Oral Temporal Artery Scan Pulse Rate 88 94 H Pulse Rate [Radial] 89 Respiratory Rate 14 18 18 Blood Pressure 148/90 H 129/87 Blood Pressure [Right Arm] 162/97 H Blood Pressure Mean [Right Arm] 118 Blood Pressure Position [Right Arm] Sitting 02 Sat by Pulse Oximetry 95 95 Oxygen Delivery Method Room Air Room Air Room Air Lab Data Labs: Lab Results 01/08/25 22:05: WBC 6.4, RBC 5.66, Hgb 16.0, Hct 46.4, MCV 82.0, MCH 28.3, MCHC 34.5, RDW 14.8, Plt Count 196, MPV 9.3, Neut % (Auto) 75.8, Lymph % (Auto) 14.6, [place] % (Auto) 8.0, Eos % (Auto) 0.2, Baso % (Auto) 0.9, Neut # (Auto) 4.9, Lymph # (Auto) 0.9, [place] # (Auto) 0.5, Eos # (Auto) 0.0, Baso # (Auto) 0.1, Sodium 135 L, Potassium 4.4, Chloride 101, Carbon Dioxide 25, Anion Gap 13.4, BUN 18, Creatinine 1.20, Estimated Creat Clear 73, Estimated GFR 59, Est GFR ( Amer) 72, Glucose 101 H, Calcium 9.7, Magnesium 1.7, Total Bilirubin 0.8, AST 38, ALT 15, Alkaline Phosphatase 88, Troponin I < 0.01, Total Protein 7.2, Albumin 3.7, Globulin 3.5 H, Albumin/Globulin Ratio 1.1, Lipase 39 Response Orders (Tests/Meds): ED MEDICATIONS Discontinued Medications Generic Name Dose Route Start Last Admin Trade Name Freq PRN Reason Stop Dose Admin Iopamidol 75 ml 01/08/25 22:56 01/08/25 23:05 Iopamidol-370 (76%);100ml Bottle IV 01/08/25 22:57 75 ml ONCE ONE Administration Pantoprazole Sodium 40 mg 01/08/25 22:15 01/08/25 22:22 Pantoprazole 40mg Vial IV 01/08/25 22:16 40 mg ONCE ONE Administration Sodium Chloride 10 ml 01/08/25 22:56 01/08/25 23:05 Sodium Chloride 0.9% 10ml Syr (Rad Only) IV 02/07/25 22:55 10 ml NEEDED PRN Administration Maintain IV Site ORDERS Category Date Time Status CT abdomen pelvis w con Stat Cat Scan 01/08/25 22:[address] head/brain wo con Stat Cat Scan 01/08/25 22:13 Completed Chest XR -- portable [XR chest portable] Stat Exams 01/08/25 22:09 Completed CBC [Complete Blood Count Auto Diff] Stat Lab 01/08/25 22:05 Completed Comprehensive Metabolic Panel Stat Lab 01/08/25 22:05 Completed Lipase Stat Lab 01/08/25 22:05 Completed Magnesium Stat Lab 01/08/25 22:05 Completed Trop I [Troponin I] Stat Lab 01/08/25 22:05 Completed MDM Narrative Medical Decision Narrative: In summary, this 74-year-old male with a past medical history of hypertension and A-fib on Eliquis presents to the emergency department today with multiple complaints including abdominal pain, headache/dizziness, and intermittent episodes of hypertension. On initial evaluation patient is mildly hypertensive with SBP of 160, nontachycardic, afebrile, GCS of 15, normal neurological exam. Differential diagnosis includes but is not limited to intracranial hemorrhage, tumor, arrhythmia, hypertension, pancreatitis, bowel obstruction. Based on these concerns, I ordered CBC, CMP, troponin, EKG, lipase, CT head, CT abdomen pelvis with IV contrast. ECG personally interpreted as noted above. Patient received Zofran and Protonix for treatment. Labs personally reviewed demonstrate unremarkable CBC, unremarkable CMP, undetectable troponin. Chest x-ray was obtained and independently interpreted by me, revealing no acute cardiopulmonary pathology. CT imaging personally interpreted demonstrates no acute intracranial or intra-abdominal pathology. At the time of shift change, radiology reads were pending. Care was handed off to physician Dr. Springer pending CT scans. Springer: Upon my assumption of care patient is stable and resting comfortably. I agree with the assessment and plan from Dr. Hector. CT reads resulted and demonstrate age-related changes of the brain without acute intracranial abnormality, patient does have cholelithiasis and debris in the gallbladder without evidence of cholecystitis in the abdomen. No other acute abnormalities. See radiology reads for final interpretations. On reassessment patient continues to be stable, rest comfortably. Labs and imaging are reassuring and I believe patient is appropriate for discharge at this time. He never had chest pain or complaint of chest pain so I do not believe serial troponins are indicated at this time especially with reassuring cardiac workup and negative initial troponin. He was given referral to Dr. Snyder for outpatient management of cholelithiasis. No changes to patient's medications. Patient was given instructions on symptomatic management, follow up instructions, and return precautions for the emergency department. Patient indicated understanding and was discharged in stable condition. <Ovidio Hector MD - Last Filed: 01/09/25 00:13> Vital Signs Vital Signs: 01/08/25 22:03 01/08/25 22:05 01/09/25 00:18 Temperature 98.1 F 98.0 F Temperature Source Oral Temporal Artery Scan Pulse Rate 88 94 H Pulse Rate [Radial] 89 Respiratory Rate 14 18 18 Blood Pressure 148/90 H 129/87 Blood Pressure [Right Arm] 162/97 H Blood Pressure Mean [Right Arm] 118 Blood Pressure Position [Right Arm] Sitting 02 Sat by Pulse Oximetry 95 95 Oxygen Delivery Method Room Air Room Air Room Air Lab Data Labs: Lab Results 01/08/25 22:05: WBC 6.4, RBC 5.66, Hgb 16.0, Hct 46.4, MCV 82.0, MCH 28.3, MCHC 34.5, RDW 14.8, Plt Count 196, MPV 9.3, Neut % (Auto) 75.8, Lymph % (Auto) 14.6, [place] % (Auto) 8.0, Eos % (Auto) 0.2, Baso % (Auto) 0.9, Neut # (Auto) 4.9, Lymph # (Auto) 0.9, [place] # (Auto) 0.5, Eos # (Auto) 0.0, Baso # (Auto) 0.1, Sodium 135 L, Potassium 4.4, Chloride 101, Carbon Dioxide 25, Anion Gap 13.4, BUN 18, Creatinine 1.20, Estimated Creat Clear 73, Estimated GFR 59, Est GFR ( Amer) 72, Glucose 101 H, Calcium 9.7, Magnesium 1.7, Total Bilirubin 0.8, AST 38, ALT 15, Alkaline Phosphatase 88, Troponin I < 0.01, Total Protein 7.2, Albumin 3.7, Globulin 3.5 H, Albumin/Globulin Ratio 1.1, Lipase 39 Response Orders (Tests/Meds): ED MEDICATIONS Discontinued Medications Generic Name Dose Route Start Last Admin Trade Name Freq PRN Reason Stop Dose Admin Iopamidol 75 ml 01/08/25 22:56 01/08/25 23:05 Iopamidol-370 (76%);100ml Bottle IV 01/08/25 22:57 75 ml ONCE ONE Administration Pantoprazole Sodium 40 mg 01/08/25 22:15 01/08/25 22:22 Pantoprazole 40mg Vial IV 01/08/25 22:16 40 mg ONCE ONE Administration Sodium Chloride 10 ml 01/08/25 22:56 01/08/25 23:05 Sodium Chloride 0.9% 10ml Syr (Rad Only) IV 02/07/25 22:55 10 ml NEEDED PRN Administration Maintain IV Site ORDERS Category Date Time Status CT abdomen pelvis w con Stat Cat Scan 01/08/25 22:[address] head/brain wo con Stat Cat Scan 01/08/25 22:13 Completed Chest XR -- portable [XR chest portable] Stat Exams 01/08/25 22:09 Completed CBC [Complete Blood Count Auto Diff] Stat Lab 01/08/25 22:05 Completed Comprehensive Metabolic Panel Stat Lab 01/08/25 22:05 Completed Lipase Stat Lab 01/08/25 22:05 Completed Magnesium Stat Lab 01/08/25 22:05 Completed Trop I [Troponin I] Stat Lab 01/08/25 22:05 Completed ECG Data Tracing #1: Attestation: I reviewed this ECG and interpreted as documented below: ECG Narrative: Atrial fibrillation, normal axis, normal intervals, no STEMI MDM Narrative Medical Decision Narrative: In summary, this 74-year-old male with a past medical history of hypertension and A-fib on Eliquis presents to the emergency department today with multiple complaints including abdominal pain, headache/dizziness, and intermittent episodes of hypertension. On initial evaluation patient is mildly hypertensive with SBP of 160, nontachycardic, afebrile, GCS of 15, normal neurological exam. Differential diagnosis includes but is not limited to intracranial hemorrhage, tumor, arrhythmia, hypertension, pancreatitis, bowel obstruction. Based on these concerns, I ordered CBC, CMP, troponin, EKG, lipase, CT head, CT abdomen pelvis with IV contrast. ECG personally interpreted as noted above. Patient received Zofran and Protonix for treatment. Labs personally reviewed demonstrate unremarkable CBC, unremarkable CMP, undetectable troponin. Chest x-ray was obtained and independently interpreted by me, revealing no acute cardiopulmonary pathology. CT imaging personally interpreted demonstrates no acute intracranial or intra-abdominal pathology. At the time of shift change, radiology reads were pending. Care was handed off to physician Dr. Springer pending CT scans.
[2025-01-08 22:22] LABS: Albumin Level 3.7 g/dl (3.5-5.0); Chloride 101 mmol/L (98-107); Sodium 135 mmol/L (136-145)
[2025-01-08] MEDS: PANTOPRAZOLE 40MG VIAL 40 MG IV (22:22)
[2025-01-08 22:23] LABS: Potassium 4.4 mmoL/L (3.5-5.1)
[2025-01-08 22:25] LABS: Alanine Aminotransferase 15 U/L (12-78); Albumin/Globulin Ratio 1.1 (1.1-1.8); Alkaline Phosphatase 88 U/L (38-126); Anion Gap 13.4 mEq/L (5-15); Aspartate Amino Transferase 38 U/L (17-59); Bilirubin,Total 0.8 mg/dl (0.2-1.3); Blood Urea Nitrogen 18 mg/dl (9-20); Carbon Dioxide 25 mmol/L (22.0-30.0); Creatinine Clearance Estimated 73 mL/min (50-200); Estimated Glomerular Filt Rate 59 ml/min (>60); GFR (African American) 72 ML/MIN (>60); Globulin 3.5 g/dL (1.3-3.2); Lipase 39 U/L (23-300); Total Protein,Serum 7.2 g/dl (6.3-8.2)
[2025-01-08 22:26] LABS: Calcium 9.7 mg/dl (8.4-10.2); Glucose 101 mg/dl (74-100); Magnesium 1.7 mg/dl (1.6-2.3)
[2025-01-08 22:38] LABS: Troponin I < 0.01 ng/ml (0.00-0.034)
[2025-01-08] MEDS: SODIUM CHLORIDE 0.9% 10ML SYR (RAD ONLY) 10 ML IV (23:05)
[2025-01-08] MEDS: IOPAMIDOL-370 (76%);100ML BOTTLE 75 ML IV (23:05)
[2025-01-09 00:18] VITALS: BP 129/87; PULSE 94; RESP 18; TEMP 36.7; O2SAT 95
== END 2025-01-09 00:23 | disposition home or self-care (01) ==
PROVIDERS: Nurse Practitioner; Emergency Provider Student in an Organized Health Care Education/Training Program; PCP Family Medicine
DX: K80.20 Calculus of gallbladder without cholecystitis without obstruction (principal); I25.10 Atherosclerotic heart disease of native coronary artery without angina pectoris; I48.91 Unspecified atrial fibrillation; I10 Essential (primary) hypertension; E11.8 Type 2 diabetes mellitus with unspecified complications; E78.5 Hyperlipidemia, unspecified; Z79.01 Long term (current) use of anticoagulants; Z22.322 Carrier or suspected carrier of Methicillin resistant Staphylococcus aureus; R07.89 Other chest pain; R10.84 Generalized abdominal pain; M54.9 Dorsalgia, unspecified; L74.519 Primary focal hyperhidrosis, unspecified; R51.9 Headache, unspecified; R42 Dizziness and giddiness
CPT/HCPCS: 70450; 71045; 74177; 80053; 83690; 83735; 84484; 85025; 93005; 96374; 99285; J2470; Q9967

== ENCOUNTER 2025-01-13 10:46 | Outpatient (CLI) | payer MEDICARE, OTHER, SELFPAY ==
[2025-01-13 10:57] LABS: Coronavirus 19, PCR Not Detected (NotDetected); Influenza A, PCR Not Detected (NotDetected); Influenza B, PCR Not Detected (NotDetected)
--- NOTE | 2025-01-13 11:00 | US_ITS ---
FINAL REPORT TECHNIQUE: Multiple transverse and longitudinal images CLINICAL HISTORY: Right upper quad pain COMPARISON: CT abdomen and pelvis 01/09/2025 FINDINGS: There are numerous tiny stones within the gallbladder along with significant sludge. No gallbladder wall thickening is noted. No biliary ductal dilatation is appreciated. No fluid collections are seen. Limited portions of the right liver are unremarkable. Limited portions of the right kidney are unremarkable. IMPRESSION: Numerous tiny gallstones and sludge without findings of acute cholecystitis. Reviewed, Interpreted and Dictated by Gallo Carlson MD Transcribed by Margaret Molina Authenticated and [facility]
== END 2025-01-13 23:59 | disposition home or self-care (01) ==
PROVIDERS: PCP Family Medicine; Visit Provider Nurse Practitioner Family
DX: R50.9 Fever, unspecified (principal); R11.2 Nausea with vomiting, unspecified; K80.20 Calculus of gallbladder without cholecystitis without obstruction
CPT/HCPCS: 76705; 87636

== ENCOUNTER 2025-09-09 10:45 | Outpatient (CLI) | payer MEDICARE, OTHER, SELFPAY ==
--- OUTSIDE RECORDS SUMMARY | 2024-06-22 09:15 | XMS_ITS ---
Author Organization [facility] Address [address] [place] [id number] Care Team Providers Care Obiee Lead Developer Name Role Phone Javier George Primary Care Provider [phone] Allergies No Known Allergies Results Component Value Reference Range Notes Glycohemoglobin A1c (in hous e) Reviewed date:06/24/2024 08:45:10 AM Interpretation:6.8% Performing Lab: Notes/Report: 6.8% glycohemoglobin 6.8% 5 - 6.5 % P-Comprehensive Metabolic Pa rocky (CMP) Reviewed date:06/24/2024 08:45:10 AM Interpretation:gluc 202, bun 25 Performing Lab: Notes/Report: Test performed by [facility] [address] [place] [address] , [address], [place] [address] Ramesh Reed MD, Representative CLIA: [id number] Sodium 139 135-145 mmol/L Potassium 4.6 3.5-5.3 [...] 5.06 Performing Lab: Notes/Report: Test performed by [facility], [place] [address] [facility] , [address], [place] [address] Ramesh Reed MD, Representative CLIA: [id number] Cholesterol 157 <200 mg/dL Triglycerides 328 <150 [...] Interpretation:5.94 Performing Lab: Notes/Report: Test performed by [facility], [employer] [address] [place] [address] , [address], [place] [address] Ramesh Reed MD, Representative CLIA: [id number] PSA 5.94 <4.00 ng/mL Please note this [...] 1 cap(s) orally bid Active Vital Signs Weight 220.2 lbs 06/22/2024 Blood pressure systolic 134 mm Hg 06/22/20 24 Blood pressure diastolic 74 mm Hg 024 Heart Rate 56 /min 06/22/2024 Height 72.50 in 06/22/2024 BMI 29.45 kg/m2 06/22/2024 Encounters Encounter Location Date Provider Diagnosis [facility] [address] [place] [id number] 06/22/2024 Javier George Elevated PSA R97.20 ; [...] Notes * Felipa SORTOOB:1950 (74 yo M)Acc No.[id number]:06/22/2024 Progress Notes Patient: Sergey ROWLAND Provider: Javier George M.D. :1950 A ge:73 Y S ex:Male Date:06/22/2024 Address:[facility], [id number] Subjective: * Chief Complaints: * 1 . [...] abdomnial hernia repair , heart cath 05/2017, Colonoscopy-[facility]-Dr. Rupesh Cortez 02/18/2014, Amputation of right great toe/ Dr. Culver 2020, Excision SCC left neck - Tonsillectomy, Lymph node, Partial Tongue resection 12/24/2022, G-tube 12/24/22, Right ankle fusion 03/13/23. * Hospitalization/Major Diagno stic Procedure: s ee above , [facility]-abdominal pain 06/23, Colonoscopy 2007,2012, [facility]-heart failure 06/10/17. * Family History: F ather: , [place]. M other: , liver problems, diabetes. M [...] Procedure Codes: 3 6416 CAPILLARY BLOOD DRAW, 01042 GLYCATED HEMOGLOBIN TEST, Modifiers: QW * Follow Up: 6 Months * Images: Billing Information: * Visit Code: 30618 Office Visit, Est Pt., Level 3. * Procedure Codes: 37709 CAPILLARY BLOOD DRAW. 98146 GLYCATED HEMOGLOBIN TEST. Modifiers: QW * Electronic signature of Javier George MD on 09/09/2025 at 10:49 AM EST Sign off status: Pending * Provider: Javier George M.D. Date: 0 06/22/2024 Generated for Emma phipps/Wes/eTransmitting on: 1 11/09/2024 10:49 AM EST History and Physical Notes * [...]
--- OUTSIDE RECORDS SUMMARY | 2024-11-20 05:30 | XMS_ITS ---
Author Organization [facility] Address [address] [place] [id number] Care Team Providers Care Department Editor Name Role Phone Javier George Primary Care Provider Evgeny Briseno Unavailable [phone] Allergies No Known Allergies Results Component Value [...] Normal Performing Lab: Notes/Report: Test performed by [facility] [address] [place] [address] , [address], [place] [address] Ramesh Reed MD, Underwriting Support Manager CLIA: [id number] Sodium 144 135-145 mmol/L Potassium 4.8 3.5-5.3 [...] 163 Performing Lab: Notes/Report: Test performed by [facility] [employer] [facility] [employer] [address] [place] [address] , [address], [place] [address] Ramesh Reed MD, Underwriting Support Manager CLIA: [id number] Cholesterol 204 <200 mg/dL Triglycerides 221 <150 [...] Interpretation:7.58 Performing Lab: Notes/Report: Test performed by [facility] [address] [place], [place] [address] , [place] [address] Ramesh Reed MD, Underwriting Support Manager CLIA: [id number] PSA 7.58 <4.00 ng/mL Please note this is an ultrasensitive PSA assay with a lower limit of detection of 0.014 ng/mL. This test is performed by the [employer] ECLIA methodology. Values obtained with different assay [...] Normal Performing Lab: Notes/Report: Test performed by [facility] [address] [place], [place] [address] [address], [place] [address] Ramesh Reed MD, Underwriting Support Manager CLIA: [id number] TSH reflex to FT4 1.84 0.43-5.25 mU/L P-Microalbumin/Creatinine, R andom Urine Sample Reviewed date:11/22/2024 09:57:48 AM Interpretation:a/c 2424 Performing Lab: Notes/Report: Test performed by [facility] [employer] [employer] [address] [place] [address] , [address], [place] [address] Ramesh Reed MD, Underwriting Support Manager CLIA: [id number] Albumin/Creatinine Ratio, Urine 2424 0-30 ug/m g [...] fingerstick twice daily 01/03/2023 Unknown Vital Signs Weight 220.4 lbs 11/20/2024 Blood pressure systolic 180 mm Hg 11/20/19 25 Blood pressure diastolic 100 mm Hg 025 Heart Rate 62 /min 11/20/2024 Height 72.50 in 11/20/2024 BMI 29.48 kg/m2 11/20/2024 Encounters Encounter Location Date Provider Diagnosis [facility] [address] [facility] [address] [place] [address], [place] [id number] 11/20/2024 Evgeny Briseno Type 2 diabetes santino itus with diabetic neuropathy, unspecified E11.40 ; 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 ; ASCVD (arteriosclerotic cardiovascular disease) I25.10 ; Chronic atrial fibrillation I48.20 ; Elevated PSA R97.20 ; Prostate cancer screening Z12.5 and Ischemic cardiomyopathy I25.5 Assessments Encounter Date Diagnosis (ICD Code) Assessment Notes Treatment Notes Treatment Clinical Notes Section Notes 11/20/2024 Type 2 diabetes mellitus with diabetic neuropathy, unspecified (ICD-10 - E11.40) Not at goal 11/20/2024 half-way (current) use of insulin (ICD-10 - Z79.4) [...] Notes * Felipa SORTOOB:1950 (74 yo M)Acc No.[id number]:11/20/2024 Progress Notes Patient: Sergey ROWLAND Provider: Bogdan Briseno M.D. :1950 A ge:74 Y S ex:Male Date:11/20/2024 Address:[facility] [address], [place], [id number] Pcp:Javier George Subjective: * Chief Complaints: * [...] abdomnial hernia repair , heart cath 05/2017, Colonoscopy-[facility]-Dr. Rupesh Cortez 02/18/2014, Amputation of right great toe/ Dr. Culver 2020, Excision SCC left neck - Tonsillectomy, Lymph node, Partial Tongue resection 12/24/2022, G-tube 12/24/2022, Right ankle fusion . * Hospitalization/Major Diagno stic Procedure: -[facility]-abdominal pain 06/2011, Colonoscopy 2007,2012, [facility]-heart failure 06/10/2017. * Family History: F ather: , [place]. M other: , liver problems, diabetes. M [...] G 2211 Complex e/[place], [address] GLUCOSE TEST, 51535 GLYCATED HEMOGLOBIN TEST, Modifiers: QW , 95973 VENIPUNCT, ROUTINE*, 16391 SPECIMEN HANDLING, 3051F HG A1C>EQUAL 7.0%<8.0% * Follow Up: v ia phone to report test results, 6 Months * Images: Billing Information: * Visit Code: 76669 Office Visit, Est Pt., Level 4. * Procedure Codes: G2211 Complex e/[place]. [address] GLUCOSE TEST. 27696 GLYCATED HEMOGLOBIN TEST. Modifiers: QW 22817 VENIPUNCT, ROUTINE*. 67104 SPECIMEN HANDLING. 3051F HG A1C>EQUAL 7.0%<8.0%. * Electronic signature of Wilda Briseno MD on 09/09/2025 at 10:49 AM EST Sign off status: Pending * Provider: Bogdan Briseno M.D. Date: 0 11/20/2024 Generated for Emma phipps/Wes/eTransmitting on: 1 11/09/2024 [...]
--- OUTSIDE RECORDS SUMMARY | 2024-12-28 11:30 | XMS_ITS ---
Author Organization [facility] Address [address] [place] [phone] Care Team Providers Care Deck Cadet Name Role Phone Javier George Primary Care Provider Allergies No Known Allergies Results Component Value Reference Range Notes H-CBC Reviewed date:01/04/2025 08:33:20 AM Interpretation: Performing Lab: Notes/Report: WBC 11.1 4.8-10.8 K/mm3 RBC 5.75 4.60-6.20 M/mm3 HGB 15.9 14.1-18.0 g/dL HCT 48.2 42.0-52.0 % MCV 83.8 80-94 fl MCH 27.7 27.0-31.2 pg MCHC 33.0 31.8-35.4 g/dL RDW 14.2 11.5-17.5 % PLT 415 142-424 K/mm3 MPV 9.1 7.4-10.4 fl NE% 66.7 37.0-80.0 % LY% 22.6 10-50 % MO% 7.8 1.7-9.3 % EO% 2.1 0.1-12.0 % BA% 0.4 0.1-2.0 % NE# 7.4 1.8-7.8 K/mm3 LY# 2.5 0.7-4.5 K/mm3 MO# 0.9 0.1-1.0 K/mm3 EO# 0.2 0.0-0.4 K/mm3 BA# 0.1 0-0.2 K/mm3 H-BMP Reviewed date:01/04/2025 08:33:20 AM Interpretation: Performing Lab: Notes/Report: NA 141 136-145 mmol/L K 4.6 3.5-5.1 mmoL/L CL 107 98-107 mmol/L CO2 26 22.0-30.0 mmol/L GAP 12.6 5-15 mEq/L BUN 16 9-20 mg/dl CREATT 1.10 0.66-1.25 mg/dl GFRAA 79 >60 ML/MIN EGFR 65 >60 ml/min GLU 114 74-100 mg/dl CA 9.5 8.4-10.2 mg/dl H-MRSA screen Reviewed date:01/04/2025 08:33:20 AM Interpretation: Performing Lab: Notes/Report: CUMRSA Negative EKG Reviewed date:02/05/2025 09:54:01 PM Interpretation: Performing Lab: Notes/Report: REASON FOR VISIT preop cpx Medications Medication SIG (Take, Route, Frequency, Duration) Notes Start Date End Date Status Atorvastatin Calcium 40 MG 1 tab(s) orally once a day; Duration: 90 days Not-Takin g Pantoprazole Sodium 40 MG 1 tab(s) orally once a day; Duration: 30 day(s) 12/07/2021 Not-Edil ing traMADol HCl 50 MG 1 tab(s) orally ever y 6 hours prn 06/08/2021 Not-Taking Contour Next Test - test bg fingerstick once daily E11.40 Unknown Contour Next Test - test bg fingerstick twice daily 01/03/2023 Unknown Torsemide 10 MG 1 tab(s) orally once a day Not-Taking traMADol HCl 50 MG 1-2 tab(s) orally ev araseli 6 hours prn 06/24/2022 Not-Taking Ibuprofen 800 MG 1 tab(s) orally 3 ti mes a day prn (with food) 08/27/2022 Not-Taking Jardiance 10 MG 1 tablet Orally Once a day; Duration: 30 day(s) Not-Edil ing Aspirin Adult Low Dose 81 MG 1 tab(s) orally once a day Not-Taking NovoLOG Mix 70/30 FlexPen (70-30) 100 UNIT/ML INJECT 30 TO 36 UNITS SUBCUTANEOUSLY THREE TIMES DAILY Active Metoprolol Succinate ER 100 MG 1/2 tab(s) orally once a day Active Eliquis 5 MG 1 tab(s) orally once daily Active Vascepa 1 GM 2 cap(s) orally 2 ti mes a day 10/04/2018 Active Entresto 24-26 MG 1 cap(s) orally bid Active PEN NEEDLE S/C 31GX5/16 1 PEN NEEDLE 2 TIMES A DAY OR DIRECTED; Duration: 30 DAYS 04/24/2018 Active FreeStyle Izzy 3 Sensor - as directed subcutaneously 11/20/2024 Active Vital Signs Weight 218.0 lbs 12/28/2024 Blood pressure systolic 150 mm Hg 12/29/19 25 Blood pressure diastolic 80 mm Hg 025 Heart Rate 64 /min 12/28/2024 Height 72.50 in 12/28/2024 BMI 29.16 kg/m2 12/28/2024 Encounters Encounter Location Date Provider Diagnosis [facility] [address] [place] [id number] 12/28/2024 Javier George Preop examination Z01.818 ; ASCVD (arteriosclerotic cardiovascular disease) I25.10 ; Type 2 diabetes mellitus with diabetic neuropathy, unspecified E11.40 ; Dyslipidemia E78.5 ; Chronic atrial fibrillation I48.20 and 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 See also Cardilogy clearance. 12/28/2024 ASCVD (arteriosclerotic cardiovascular disease) (ICD-10 - I25.10) 12/28/2024 Type 2 diabetes mellitus with diabetic neuropathy, unspecified (ICD-10 - E11.40) 12/28/2024 Dyslipidemia (ICD-10 - E78.5) 12/28/2024 Chronic atrial fibrillation (ICD-10 - I48.20) 12/28/2024 Hx of malignant neoplasm of tonsil (ICD-10 - Z85.818) Plan Of Treatment Treatment Notes Assessment Notes Preop examination He is an acceptable medical risk for surgery from a primary care standpoint. See also Cardilogy clearance. Next Appt Details Follow Up: 3 Months, Reason: Progress Notes * Felisha SORTO:1950 (74 yo M)Acc No.[id number]:12/28/2024 Physical Patient: Sergey ROWLAND Provider: Javier George M.D. :1950 A ge:74 Y S ex:Male Date:12/28/2024 Address:[address] [place] [address], [id number] Subjective: * Chief Complaints: * 1 . Preop cpx. * HPI: A dult Pre-Op physical: 74 year old male presents with c/o Procedure: R emoval of hardware and right subtalar arthrodesis. c/o Date of Procedure: P t is having this done on January 20. c/o Name of Surgeon: Gee Treviño in [place] at the [facility]. Family history of anesthesia intolerance n o. H as had anesthesia before y es, had NO problems with anesthesia in the past. F unctional Status m edium (4-10 Mets). A nticoagulant y es, Eliquis. A SA/Ibuprofen/NSAIDS y es. * ROS: D ERMATOLOGY: no R dcik. n o H ann marie. G ASTROENTEROLOGY: [...] abdomnial hernia repair , heart cath 05/2017, Colonoscopy-[facility]-Dr. Rupesh Cortez 02/18/2014, Amputation of right great toe/ Dr. Culver 2020, Excision SCC left neck - Tonsillectomy, Lymph node, Partial Tongue resection 12/24/2022, G-tube 12/24/2022, Right ankle fusion . * Hospitalization/Major Diagno stic Procedure: -[facility]-abdominal pain 06/2011, Colonoscopy 2007,2012, [facility]-heart failure 06/10/2017. * Family History: F ather: , [place]. M other: , liver problems, diabetes. M aternal Grand Mother: amputation due to DM. S iblings: hypertension. 2 brother(s) , 1 sister(s) . 2 daughter(s) - healthy. . Brother with diabetes. * Social History: C URRENT TOBACCO USE S moking Status: P athiren does NOT smoke. C affeine: yes, frequency:. Marital Status: . Past smoking status: no. Alcohol: No. * Medications: T aking PEN NEEDLE S/C 31GX5/16 1 PEN NEEDLE 2 TIMES A DAY OR DIRECTED , Taking FreeStyle Izzy 3 Sensor - Miscellaneous as directed subcutaneously , Taking NovoLOG Mix 70/30 FlexPen (70-30) 100 UNIT/ML Suspension Pen-injector INJECT 30 TO 36 UNITS SUBCUTANEOUSLY THREE TIMES DAILY , Taking Metoprolol Succinate ER 100 MG Tablet Extended Release 24 Hour 1/2 tab(s) orally once a day , Taking Eliquis 5 MG Tablet 1 tab(s) orally once daily , Taking Vascepa 1 GM Capsule 2 cap(s) orally 2 times a day , Taking Entresto 24-26 MG Tablet 1 cap(s) orally bid , Not-Taking Jardiance 10 MG Tablet 1 [...] Allergies: N .K.D.A. Objective: * Vitals: W t:218.0, Temp:98.0, BP:150/80, HR:64, Nurse:mmmckinley, Ht: 72.50, BMI:29.16. * Examination: G eneral Examination: General Appearance: N AD. H EENT: u nremarkable.?Oral cavity: n o lesions, mucosa moist and WNL, no erythema. N vincenzo: s upple, no lymphadenopathy. C hest: n ormal shape and expansion. H eart: R SR. L ungs: c lear to auscultation. A bdomen: soft, nontender, bowel sounds present. E xtremities:?no leg edema. Note eversion of right foot with ankle deformity. Assessment: * Assessment: 1. P reop examination - Z01.818 (Primary) 2 . A SCVD (arteriosclerotic cardiovascular disease) - I25.10 3 . T ype 2 diabetes mellitus with diabetic neuropathy, unspecified - E11.40 4 . D yslipidemia - E78.5 5 . C hronic atrial fibrillation - I48.20 6 . H x of malignant neoplasm of tonsil - Z85.818 Plan: * Treatment: * Imaging: * I maging: EKG (Performed Date - 01/08/2025) * Labs: * L ab: H-MRSA screen (Collection Date & Time - 01/01/2025 08:21 AM) Value Reference Range C UMRSA Negative - * Javier George 01/04/2025 8 :33:02 AM > Labs reviewed and faxed to surgeon ?Lab: H-CBC (Collection Date & Time - 01/01/2025 08:21 AM)* Value Reference Range W BC 11.1 H 4.8-10.8 - K/mm3 * R BC 5.75 4.60-6.20 - M/mm3 * H GB 15.9 14.1-18.0 - g/dL * H CT 48.2 42.0-52.0 - % * M CV 83.8 80-94 - fl * M CH 27.7 27.0-31.2 - pg * M CHC 33.0 31.8-35.4 - g/dL * R DW 14.2 11.5-17.5 - % * P LT 415 142-424 - K/mm3 * M PV 9.1 7.4-10.4 - fl * N E% 66.7 37.0-80.0 - % * L Y% 22.6 10-50 - % * M O% 7.8 1.7-9.3 - % * E O% 2.1 0.1-12.0 - % * B A% 0.4 0.1-2.0 - % * N E# 7.4 1.8-7.8 - K/mm3 * L Y# 2.5 0.7-4.5 - K/mm3 * M O# 0.9 0.1-1.0 - K/mm3 * E O# 0.2 0.0-0.4 - K/mm3 * B A# 0.1 0-0.2 - K/mm3 * Javier George 01/04/2025 8 :33:02 AM > Labs reviewed and faxed to surgeon ?Lab: H-BMP (Collection Date & Time - 01/01/2025 08:21 AM)* Value Reference Range N A 141 136-145 - mmol/L * K 4.6 3.5-5.1 - mmoL/L * C L 107 98-107 - mmol/L * C O2 26 22.0-30.0 - mmol/L * G AP 12.6 5-15 - mEq/L * B UN 16 9-20 - mg/dl * C REATT 1.10 0.66-1.25 - mg/dl * G FRAA 79 >60 - ML/MIN * E GFR 65 >60 - ml/min * G [place] 114 H 74-100 - mg/dl * C A 9.5 8.4-10.2 - mg/dl * Javier George 01/04/2025 8 :33:02 AM > Labs reviewed and faxed to surgeon * Procedure Codes: G 2211 Complex e/m visit add on, T4780 MOST RECENT SYSTOLIC BP >= 140MM HG, G8754 MOST RECENT DIASTOLIC BP < 90MM HG * Follow Up: 3 Months * Images: Billing Information: * Visit Code: 81647 Office Visit, Est Pt., Level 4. * Procedure Codes: G2211 Complex e/m visit add on. G8753 MOST RECENT SYSTOLIC BP >= 140MM HG. G8754 MOST RECENT DIASTOLIC BP < 90MM HG. * Electronic signature of Javier Geogre MD on 09/09/2025 at 10:49 AM EST Sign off status: Pending * Provider: Javier George M.D. Date: 0 12/28/2024 Generated for Emma phipps/Wes/eTransmitting on: 1 11/09/2024 10:49 AM EST History and Physical Notes * HPI (History of Present Illness) Category Sub-Category Detail Notes Category Not es Adult Pre-Op physical Procedure: Removal of hardware and right subtalar arthrodesis Date of Procedure: Pt is having this do ne on January 20 Name [facility] Sur[facility] Family history of anesthesia intolerance no Has had anesthesia before yes, had NO pr oblems with anesthesia in the past Functional Status medium (4-10 Mets) Anticoagulant yes, Eliquis ASA/Ibuprofen/NSAIDS yes Examination Category Sub-Category Detail Notes Category Not es General Examination HEENT: unremarkable Heart: RSR Lungs: clear to auscultatio n Abdomen: soft, nontender, bow el sounds present Extremities: no leg edema. Note e version of right foot with ankle deformity General Appearance: NAD Neck: supple, no lymphaden opathy Oral cavity: no lesions, mucosa m oist and WNL, no erythema Chest: normal shape and exp ansion
--- OUTSIDE RECORDS SUMMARY | 2025-01-11 09:45 | XMS_ITS ---
[facility] [address] [place] [id number] Care Team Providers Care Tram Operator Name Role Phone Javier George Primary Care Provider Allergies No Known Allergies REASON FOR VISIT gallstones Medications Medication SIG (Take, Route, Frequency, Duration) Notes Start Date End Date Status Contour Next Test - test bg fingerstick twice daily 01/03/2023 Unknown Contour Next Test - test bg fingerstick once daily E11.40 Unknown Atorvastatin Calcium 40 MG 1 tab(s) orally once a day; Duration: 90 days Not-Takin g traMADol HCl 50 MG 1 tab(s) orally ever y 6 hours prn 06/08/2021 Not-Taking Pantoprazole Sodium 40 MG 1 tab(s) orally once a day; Duration: 30 day(s) 12/07/2021 Not-Edil ing Ibuprofen 800 MG 1 tab(s) orally 3 ti mes a day prn (with food) 08/27/2022 Not-Taking Aspirin Adult Low Dose 81 MG 1 tab(s) orally once a day Not-Taking Jardiance 10 MG 1 tablet Orally Once a day; Duration: 30 day(s) Not-Edil ing traMADol HCl 50 MG 1-2 tab(s) orally ev araseli 6 hours prn 06/24/2022 Not-Taking Torsemide 10 MG 1 tab(s) orally once a day Not-Taking Metoprolol Succinate ER 100 MG 1/2 tab(s) orally once a day; Duration: 90 days Active Entresto 24-26 MG 1 cap(s) orally bid Active Vascepa 1 GM 2 cap(s) orally 2 ti mes a day 10/04/2018 Active Eliquis 5 MG 1 tab(s) orally once daily Not-Taking NovoLOG Mix 70/30 FlexPen (70-30) 100 UNIT/ML INJECT 30 TO 36 UNITS SUBCUTANEOUSLY THREE TIMES DAILY Active FreeStyle Izzy 3 Sensor - as directed subcutaneously 11/20/2024 Active PEN NEEDLE S/C 31GX5/16 1 PEN NEEDLE 2 TIMES A DAY OR DIRECTED; Duration: 30 DAYS 04/24/2018 Active Problems Problem Type SNOMED Code ICD Code Onset Dates Problem Status W/U Status Risk Notes Problem Gallstones (435703420) Gallstones (K80.20) Active confirmed Vital Signs Weight 212.8 lbs 01/11/2025 Blood pressure systolic 120 mm Hg 01/12/20 25 Blood pressure diastolic 56 mm Hg 025 Height 72.50 in 01/11/2025 BMI 28.46 kg/m2 01/11/2025 Encounters Encounter Location Date Provider Diagnosis [facility] [address] [place] [id number] 01/11/2025 Javier George Gallstones K80.20 Assessments Encounter Date Diagnosis (ICD Code) Assessment Notes Treatment Notes Treatment Clinical Notes Section Notes 01/11/2025 Gallstones (ICD-10 - K80.20) Discussed low-fat diet. Keep scheduled appointment with Dr. Snyder for surgical consultation. Plan Of Treatment Treatment Notes Assessment Notes Gallstones Discussed low-fat di et. Keep scheduled appointment with Dr. Snyder for surgical consultation. Next Appt Details Follow Up: prn, Reason: Progress Notes * Felipa SORTOOB:1950 (74 yo M)Acc No.[id number]:01/11/2025 Progress Notes Patient: Sergey ROWLAND Provider: Javier George M.D. :1950 A ge:74 Y S ex:Male Date:01/11/2025 Address:[address] [place] [address], [id number] Subjective: * Chief Complaints: * 1 . Gallstones. * HPI: G astroenterology: He was seen in the emergency room over the weekend with a 2-day history of abdominal discomfort, bloating, and nausea. He was worked up in the ER including a cardiac workup which was negative. CT scan of the abdomen was remarkable for gallstones. He has no known history and denies previous symptoms. The ER has scheduled him for an appointment with Dr. Snyder later this week. His abdominal discomfort has eased but he still complains of early satiety and bloating with meals. * ROS: D ERMATOLOGY: no R dick. [...] abdomnial hernia repair , heart cath 05/2017, Colonoscopy-[facility]-Dr. Rupesh Cortez 02/18/2014, Amputation of right great toe/ Dr. Culver 2020, Excision SCC left neck - Tonsillectomy, Lymph node, Partial Tongue resection 12/24/2022, G-tube 12/24/2022, Right ankle fusion . * Hospitalization/Major Diagno stic Procedure: -[facility]-abdominal pain 06/2011, Colonoscopy 2007,2012, [facility]-heart failure 06/10/2017. * Family History: F ather: , [place]. [...] UNITS SUBCUTANEOUSLY THREE TIMES DAILY , Taking Vascepa 1 GM Capsule 2 cap(s) orally 2 times a day , Taking Entresto 24-26 MG Tablet 1 cap(s) orally bid , Taking Metoprolol Succinate ER 100 MG Tablet Extended Release 24 Hour 1/2 tab(s) orally once a day , Not-Taking Eliquis 5 MG Tablet 1 tab(s) orally once daily , Not-Taking Jardiance 10 MG Tablet 1 [...] Allergies: N .K.D.A. Objective: * Vitals: W t: 212.8, Temp: 98.8, BP: 120/56, Nurse: jane, Ht: 72.50, BMI:28.46. * Examination: G eneral Examination: H e appears in no acute distress. Lungs are clear to auscultation. Heart is regular. Abdomen is soft and nondistended. No unusual masses or tenderness. Bowel sounds are present but diminished. Assessment: * Assessment: 1. G alltreadwells - K80.20 (Primary) Plan: * Treatment: * Procedure Codes: G 2211 Complex e/m visit add on, G8752 MOST RECENT SYSTOLIC BP < 140MM HG, G8754 MOST RECENT DIASTOLIC BP < 90MM HG * Follow Up: p rn * Images: Billing Information: * Visit Code: 06466 Office Visit, Est Pt., Level 3. * Procedure Codes: G2211 Complex e/m visit add on. G8752 MOST RECENT SYSTOLIC BP < 140MM HG. G8754 MOST RECENT DIASTOLIC BP < 90MM HG. * Electronic signature of Javier George MD on 09/09/2025 at 10:49 AM EST Sign off status: Pending * Provider: Javier George M.D. Date: 0 01/11/2025 Generated for Emma phipps/Wes/Alexitting on: 11/09/2024 10:49 AM EST History and Physical Notes * Examination Category Sub-Category Detail Notes Category Not es General Examination He appea rs in no acute distress. Lungs are clear to auscultation. Heart is regular. Abdomen is soft and nondistended. No unusual masses or tenderness. Bowel sounds are present but diminished.
--- OUTSIDE RECORDS SUMMARY | 2025-02-15 04:30 | XMS_ITS ---
Author Organization [facility] Address [address] [place] [id number] Care Team Providers Care Weigher Operator Name Role Phone Javier George Primary Care Provider [phone] Allergies No Known Allergies REASON FOR VISIT [...] cap(s) orally bid Active Vital Signs Weight 213.2 lbs 02/15/2025 Blood pressure systolic 150 mm Hg 02/16/20 25 Blood pressure diastolic 90 mm Hg 025 Heart Rate 48 /min 02/15/2025 Height 72.50 in 02/15/2025 BMI 28.51 kg/m2 02/15/2025 Encounters Encounter Location Date Provider Diagnosis [facility] [address] [facility] [address] [place], [place] [id number] 02/15/2025 Javier George Enterocolitis K52.9 and BMI [...] Notes * Felipa SORTOOB:1950 (74 yo M)Acc No.[id number]:02/15/2025 Progress Notes Patient: Sergey ROWLAND Provider: Javier George M.D. :1950 A ge:74 Y S ex:Male Date:02/15/2025 Address:[address], [place] [id number] Subjective: * Chief Complaints: * 1 . [...] abdomnial hernia repair , heart cath 05/2017, Colonoscopy-[facility]-Dr. Rupesh Cortez 02/18/2014, Amputation of right great toe/ Dr. Culver 2020, Excision SCC left neck - Tonsillectomy, Lymph node, Partial Tongue resection 12/24/2022, G-tube 12/24/2022, Right ankle fusion/ Dr. 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 Treviño 06/12/2023, Subtalar joint arthrodesis/ Dr. Treviño 01/20/2025. * Hospitalization/Major Diagno stic Procedure: -[facility]-abdominal pain 06/2011, Colonoscopy 2007,2012, [facility]-heart failure 06/10/2017. * Family History: F ather: , [place]. M other: , liver problems, diabetes. M [...] N otes :vs diverticulitis 2 . B [place] 28.0-28.9,adult - Z68.28 Plan: * Treatment: * Procedure Codes: G 2211 Complex e/m visit add on * Follow Up: 1 Week,prn * Images: Billing Information: * Visit Code: 33700 Office Visit, Est Pt., Level 3. * Procedure Codes: G2211 Complex e/m visit add on. * Electronic signature of Javier George MD on 09/09/2025 at 10:49 AM EST Sign off status: Pending * Provider: Javier George M.D. Date: 0 02/15/2025 Generated for Emma phipps/Wes/eTransmitting on: 11/09/2024 10:49 AM EST History and [...]
--- NOTE | 2025-09-09 10:48 | XR_ITS ---
FINAL REPORT CLINICAL HISTORY: evaluate knot located to ball of foot COMPARISON: 12/25/2020 FINDINGS: AP, oblique and lateral views of the left foot were obtained. Again identified are postoperative changes from amputation of the great toe at the first metatarsal phalangeal joint. There is lateral subluxation of the second DIP joint. There is irregularity involving the head of the second middle phalanx and base of the second distal phalanx, osteomyelitis is not excluded. There is a new fracture at the base of the second proximal phalanx, this may not be acute. There is soft tissue swelling of the forefoot. IMPRESSION: Lateral subluxation of the DIP joint of the second toe with new irregularity of the head of the second middle phalanx and base of the second distal phalanx, osteomyelitis is not excluded. Fracture involving the base of the second proximal phalanx which is new but not likely acute. Reviewed, Interpreted and Dictated by Alyssa Hameed MD Transcribed by Lisa Espino Authenticated and [facility]
--- OUTSIDE RECORDS SUMMARY | 2025-09-09 10:49 | XMS_ITS ---
Author Organization [facility] Address [address] [place] [address] Care Team Providers Care Escalator Constructor Name Role Phone Ata Williamson MD Unavailable [phone] Bora Varner MD Unavailable [phone] Joe George MD Primary Care Provider [phone] Active Problems Problem Noted Date Diagnosed Date Peripheral polyneuropathy 04/04/2023 Dysphagia, oropharyngeal 01/15/2023 Dehydration 01/08/2023 Head and neck cancer 01/06/2023 High cholesterol 12/24/2022 Overview (12/24/2022): C/w Lipitor 40mg daily HTN (hypertension) 12/24/2022 Overview (12/24/2022): C/w metoprolol Initiate Hydral & labetalol PRN Goal SBP <160 Permanent atrial fibrillation 12/24/2022 Overview (12/24/2022): ChadsVASC=5 (age, CHF, HTN, Dm, CAD) Stop Metop XL 100mg Start Metop 25mg q6h for rate control AC: holding apixiban BID Diabetes mellitus, type 2 12/24/2022 Overview (12/24/2022): Stop Insulin gtt Start SSI Hold home regimen while inpatient Last A1c ~ 7 per family CAD (coronary artery disease) 12/24/2022 Overview (12/24/2022): Cardiac cath (11/16/2020): Moderate left main and severe 2-vessel CAD (distal LAD, distal RCA). The left main stenosis is not hemodynamically significant by RFR. 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 Feeding difficulty in adult 12/24/2022 Overview (12/24/2022): Secondary to OETT vs PEG as necessary for PO access Nutrition consulted for TF recs, appreciate coordination of care Tube feeding per nutritional recommendations via PEG STEAM SHOVEL OPERATING ENGINEER consult as indicated Tongue cancer 12/20/2022 Diabetic ulcer of toe of lef t foot associated with type 2 diabetes mellitus 11/13/2020 Overview (01/01/2023): Abdominal aortogram with runoffs (11/2020): Angiography of left lower extremity reveals noncritical atherosclerosis ASD (atrial septal defect) 06/06/2017 Overview (01/01/2023): Transthoracic echo (03/01/17): 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 No intervention needed at this time Non-rheumatic mitral regurgitation 06/06/2017 Overview (01/01/2023): Echo (06/06/17): Moderately reduced LV systolic function. Severe mitral regurgitation. RVSP approximate 70 mmHg Echo (07/23/2017): LVEF 45%. Moderate MR. RVSP 26 mmHg. Atrial fibrillation noted through throughout. Echo (07/27/2019): LVEF 52%. Moderate MR. Echo (05/15/2021): Normal LVEF. Mild to moderate MR. Slight improvement in mitral valve compared to prior echo. Last Assessment & Plan: Stable NYHA class III symptoms Coronary artery disease invo lving [place] coronary artery of [place] heart with angina pectoris 06/06/2017 Overview (01/01/2023): Echo (06/06/17): Moderately reduced LV systolic dysfunction Cardiac catheterization (06/09/17): Moderate left main and severe 2-vessel CAD (LAD, RCA). Mild pulmonary hypertension. Echo (07/23/2017): LVEF 45%. Moderate MR. Atrial fibrillation noted through throughout. Echo (07/27/2019): LVEF 52%. Moderate MR. Cardiac cath (11/16/2020): Moderate left main and severe 2-vessel CAD (distal LAD, distal RCA). The left main stenosis is not hemodynamically significant by RFR. Last Assessment & Plan: No angina Continue aspirin, beta-mirela, statin therapy Chronic systolic congestive heart failure 2016 Overview (01/01/2023): NYHA class IV heart failure symptoms, 05/2017 Echo (06/06/17): LVEF 30%. Severe MR. RVSP approximately 70 mmHg. Echo (07/22/17): LVEF 52%. Severe LA dilatation. Moderate MR. RVSP 26 mmHg Echo (07/27/2019): LVEF 52%. Moderate MR. Echo (05/15/2021): Normal LVEF. Mild to moderate MR. Slight improvement in mitral valve compared to prior echo. Last Assessment & Plan: Page C HFrEF with normalized LV systolic function and stable NYHA class II symptoms Continue metoprolol succinate and Entresto Start eplerenone 25 mg daily Intolerant to empagliflozin (UTI) CMP in 2 weeks Type 2 diabetes mellitus, [facility] long-term current use of insulin 06/06/2017 Overview (01/01/2023): Intolerant to empagliflozin Last Assessment & Plan: Continue statin therapy Obtain hemoglobin A1c Hyperlipidemia LDL goal <70 06/06/2017 Overview (01/01/2023): High intensity statin therapy indicated given the presence coronary disease Last Assessment & Plan: Not to goal Increase atorvastatin 80 mg nightly CMP and lipids in 6 weeks Current Treatment and Therapy Plans No current plan information found. Past Treatment and Therapy Plans No past plan information found. Lifetime Dose Tracking * Chemical Lifetime Dose Automatic Entry Manual Entr y Fluoro Time 3.4 minutes 3.4 minutes 0 minutes Air Kerma 12.7 mGy 12.7 mGy 0 mGy Resolved Problems Problem Noted Date Diagnosed Date Resolved Date Acute respiratory failure 12/24/2022 Overview (12/24/2022): Intubated for surgery Will keep intubated/sedated over night and wake up in morning Obtain ABG now, adjust vent accordingly Sedation: Propofol/dilaudid Adjust ventilator for oxygen and ventilation needs Wean Fi02 for SAT>90% F/u ABG and cxr 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 12/20/2022
--- OUTSIDE RECORDS SUMMARY | 2025-09-09 10:49 | XMS_ITS | Clinical Summary ---
[facility] Address [address] [place] [id number] Care Team Providers Care Wash Test Checker Name Role Phone Joe George MD Primary Care Provider Allergies Active Allergy Reactions Criticality Noted Date Comments Empagliflozin Other (See Comments) Low 07/06/2019 Nasal congestion Medications insulin aspart prot-insulin aspart (novoLOG 70/30) (70-30) 100 UNIT/ML injectionIndicat ions:Type 2 diabetes mellitus with diabetic polyneuropathy, without long-term current use of insulin Inject 36 Units under the skin into the appropriate area as directed 2 (Two) Times a Day With Meals. 4 Active atorvastatin (LIPITOR) 40 MG tabletIndication s:Hyperlipidemia LDL goal <50 Take 1 tablet by mouth Daily. 90 tablet 3 5 Active apixaban (Eliquis) 5 MG tablet tabletIndication s:Permanent atrial fibrillation Take 1 tablet by mouth Every 12 (Twelve) Hours. 180 tablet 3 5 Active metoprolol succinate XL (TOPROL-XL) 100 MG 24 hr tabletIndication s:Heart failure with improved ejection fraction (HFimpEF),Cazares ry artery disease involving nooksack coronary artery of nooksack heart with angina pectoris,Permane nt atrial fibrillation Take 1 tablet by mouth Daily. 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 Take no more than 3 doses in 15 minutes. 25 tablet 5 5 Active sacubitril-valsa rtan (ENTRESTO) 49-51 MG tabletIndication s:Heart failure with improved ejection fraction (HFimpEF) Take 1 tablet by mouth 2 (Two) Times a Day. 180 tablet 3 5 Active Active Problems Problem Noted Date Diagnosed Date Diabetic ulcer of toe of lef t foot associated with type 2 diabetes mellitus 11/13/2020 Overview (05/15/2021): Abdominal aortogram with runoffs (11/2020): Angiography of left lower extremity reveals noncritical atherosclerosis Permanent atrial fibrillation 06/06/2017 Overview (11/11/2017): Chads VASC = 5 (age, CHF, HTN, DM, CAD) Assessment & Plan (05/17/2025 3:01 PM EDT): Asymptomatic for palpitations, TIA or stroke symptoms Continue metoprolol succinate Continue apixaban for stroke prophylax Assessment & Plan (03/23/2024 9:55 AM EDT): No signs or symptoms TIA or CVA Continue metoprolol succinate 100 mg daily Continue Eliquis 5 mg twice daily for stroke prophylaxis Assessment & Plan (06/24/2023 10:18 AM EDT): No signs or symptoms TIA or CVA Continue Eliquis 5 mg twice daily Assessment & Plan (06/18/2022 5:14 PM EDT): Asymptomatic Continue apixaban for stroke prophylaxis Assessment & Plan (10/09/2021 10:24 AM EST): Asymptomatic Continue metoprolol for rate control strategy Continue apixaban for stroke prophylaxis Assessment & Plan (05/15/2021 2:10 PM EDT): No signs or symptoms TIA or CVA Continue metoprolol succinate 100 mg daily Continue Eliquis 5 mg twice daily Assessment & Plan (07/11/2020 6:23 PM EDT): Asymptomatic Continue metoprolol succinate for rate control Continue apixaban for stroke prophylaxis Assessment & Plan (07/07/2019 4:24 PM EDT): Asymptomatic Continue Eliquis for stroke prophylaxis Continue beta-mirela for rate control Assessment & Plan (09/29/2018 3:50 PM EST): Eliquis 5 mg twice a day Continue metoprolol succinate 100 mg daily Assessment & Plan (11/11/2017 12:45 PM EST): Continue metoprolol for rate control and Eliquis for stroke prophylaxis Assessment & Plan (07/22/2017 3:22 PM EDT): Continue Eliquis 5 mg twice a day Continue metoprolol succinate 100 mg daily Type 2 diabetes mellitus, [facility] long-term current use of insulin 06/06/2017 Overview (06/18/2022): Intolerant to empagliflozin Assessment & Plan (05/17/2025 3:02 PM EDT): Obtain hemoglobin A1c Assessment & Plan (06/18/2022 5:14 PM EDT): Continue statin therapy Obtain hemoglobin A1c Assessment & Plan (10/09/2021 10:24 AM EST): Remains uncontrolled Continue insulin Intolerant to SGL 2 inhibitor therapy Patient instructed to follow-up with PCP regarding diabetes regimen. May need to consider GLP agonist therapy such as Ozempic or Trulicity Assessment & Plan (07/11/2020 6:24 PM EDT): Continue statin and ARB therapy Intolerant to Jardiance Consider GLP-1 agonist therapy such as Ozempic Hyperlipidemia LDL goal <50 06/06/2017 Overview (11/11/2017): High intensity statin therapy indicated given the presence coronary disease Assessment & Plan (05/17/2025 3:01 PM EDT): LDL uncontrolled in November Repeat direct LDL, CMP and LP(a) If LDL >50, add ezetimibe and repeat direct LDL in 3 months Assessment & Plan (03/23/2024 9:54 AM EDT): Continue Lipitor 40 mg daily Assessment & Plan (06/24/2023 10:19 AM EDT): Continue Lipitor 80 mg daily Continue Vascepa 2 g twice daily Assessment & Plan (10/09/2021 10:24 AM EST): Not to goal Increase atorvastatin 80 mg nightly CMP and lipids in 6 weeks Assessment & Plan (05/15/2021 2:11 PM EDT): Continue Lipitor 40 mg daily Assessment & Plan (07/07/2019 4:24 PM EDT): Continue atorvastatin Assessment & Plan (09/29/2018 3:48 PM EST): Continue Lipitor 40 mg daily Assessment & Plan (11/11/2017 12:45 PM EST): Continue atorvastatin Assessment & Plan (07/22/2017 2:49 PM EDT): Continue Lipitor 40 mg daily Follow-up PCP for routine lipid monitoring Coronary artery disease invo lving nooksack coronary artery of nooksack heart with angina pectoris 06/06/2017 Overview (03/01/2024): Echo (06/06/17): Moderately reduced LV systolic dysfunction Cardiac catheterization (06/09/17): Moderate left main and severe 2-vessel CAD (LAD, RCA). Mild pulmonary hypertension. Echo (07/23/2017): LVEF 45%. Moderate MR. Atrial fibrillation noted through throughout. Echo (07/27/2019): LVEF 52%. Moderate MR. Cardiac cath (11/16/2020): Moderate left main and severe 2-vessel CAD (distal LAD, distal RCA). The left main stenosis is not hemodynamically significant by RFR. Cardiac catheterization (12/15/2023): Moderate left main and severe 2-vessel CAD (diffusely diseased LAD and distal RCA LUMITE INJECTOR). Diffuse disease of LAD hemodynamically significant in the mid and distal portions. Vessel poor target for surgical or percutaneous revascularization. Moderate left main stenosis not hemodynamically significant by RFR. Medical management Assessment & Plan (05/17/2025 3:00 PM EDT): No angina Aspirin deferred due to NOAC use Very important to control risk factors including diabetes and hyperlipidemia due to diffuse CAD Assessment & Plan (03/23/2024 9:56 AM EDT): No signs or symptoms of angina Defer aspirin due to chronic anticoagulation with Eliquis Sublingual nitroglycerin as needed for episodes of angina Assessment & Plan (06/24/2023 10:19 AM EDT): No signs or symptoms of angina Defer aspirin due to chronic anticoagulation with Eliquis Sublingual nitroglycerin as needed for episodes of angina Assessment & Plan (06/18/2022 5:13 PM EDT): No angina Continue aspirin, beta-mirela, statin therapy Assessment & Plan (10/09/2021 10:23 AM EST): Stable CCS class II anginal symptoms Continue low-dose aspirin, beta-mirela, and high intensity statin Assessment & Plan (05/15/2021 2:10 PM EDT): No signs or symptoms of angina Continue aspirin 81 mg daily Continue metoprolol succinate 100 mg daily Assessment & Plan (07/11/2020 6:22 PM EDT): No angina Continue beta-mirela and statin therapy No aspirin due to a concomitant NOAC Assessment & Plan (07/07/2019 4:23 PM EDT): Chest pain symptoms located with one finger on the precordium not cardiac in nature Continue beta-mirela, high intensity statin Assessment & Plan (09/29/2018 3:49 PM EST): Continue aspirin 81 mg daily Continue metoprolol succinate 100 mg daily Assessment & Plan (11/11/2017 12:44 PM EST): No anginal symptoms Continue beta mirela and statin therapy Assessment & Plan (07/22/2017 2:50 PM EDT): Continue aspirin 81 mg daily Continue metoprolol 6 800 mg daily. Assessment & Plan (06/06/2017 1:25 PM EDT): The patient is having new onset chest discomfort and acute heart failure symptoms consistent with unstable angina. His EKG is suggestive of anterior wall ischemia. We will increase his Toprol dosing to 50 mg daily. With his LV dysfunction and severe MR, I recommend proceeding with cardiac catheterization. He has agree. Heart failure with improved ejection fraction (H FimpEF) 06/06/2017 Overview (06/18/2022): NYHA class IV heart failure symptoms, 05/2017 Echo (06/06/17): LVEF 30%. Severe MR. RVSP approximately 70 mmHg. Echo (07/22/17): LVEF 52%. Severe LA dilatation. Moderate MR. RVSP 26 mmHg Echo (07/27/2019): LVEF 52%. Moderate MR. Echo (05/15/2021): Normal LVEF. Mild to moderate MR. Slight improvement in mitral valve compared to prior echo. Assessment & Plan (05/17/2025 3:01 PM EDT): Stable NYHA class II symptoms Continue metoprolol succinate, Entresto Intolerant to empagliflozin Assessment & Plan (03/23/2024 9:55 AM EDT): Stable NYHA class II symptoms Continue metoprolol succinate 100 mg daily Continue Entresto 49/51 mg 1 tablet twice daily Continue Jardiance 10 mg daily Assessment & Plan (06/24/2023 10:35 AM EDT): Stable NYHA class II symptoms Increase Entresto 49/51 mg 1 tablet twice daily BMP in 1 week Continue metoprolol succinate 100 mg daily Assessment & Plan (06/18/2022 5:13 PM EDT): Page C HFrEF with normalized LV systolic function and stable NYHA class II symptoms Continue metoprolol succinate and Entresto Start eplerenone 25 mg daily Intolerant to empagliflozin (UTI) CMP in 2 weeks Assessment & Plan (10/09/2021 10:23 AM EST): Stage C HFrEF with normalized LV systolic function Continue metoprolol succinate and Entresto Assessment & Plan (05/15/2021 2:11 PM EDT): Stable NYHA class II symptoms Continue metoprolol succinate 20 mg daily Continue Entresto 24/26 mg 1 tablet twice daily Continue Demadex 10 mg daily as needed for lower extremity edema or increased shortness of breath Assessment & Plan (07/11/2020 6:23 PM EDT): HFrEF with stable NYHA II symptoms Continue metoprolol succinate, Entresto, and as needed torsemide Assessment & Plan (07/07/2019 4:27 PM EDT): NYHA class II symptoms Continue Entresto, metoprolol succinate Echocardiogram to reassess LVEF as well as MR Assessment & Plan (09/29/2018 3:49 PM EST): Stable NYHA class I symptoms. Patient basically asymptomatic Continue Entresto 24/26 mg 1 tablet twice a day Continue metoprolol succinate 100 mg daily Assessment & Plan (11/11/2017 12:43 PM EST): Stable functional class II heart failure symptoms Continue metoprolol and Entresto Assessment & Plan (07/22/2017 2:50 PM EDT): Stable NYHA class 2-3 symptoms Continue Entresto 24/26 mg one tablet twice a day Continue Demadex 10 mg daily Assessment & Plan (06/06/2017 1:26 PM EDT): NYHA class IV symptoms Will assess with right left heart catheterization on 06/09/17 Increase Toprol to 50 mg daily Start torsemide 20 mg daily and potassium supplement 10 mEq daily Will initiate Entresto or ARB therapy at the time of heart catheterization Non-rheumatic mitral regurgitation 06/06/2017 Overview (05/15/2021): Echo (06/06/17): Moderately reduced LV systolic function. Severe mitral regurgitation. RVSP approximate 70 mmHg Echo (07/23/2017): LVEF 45%. Moderate MR. RVSP 26 mmHg. Atrial fibrillation noted through throughout. Echo (07/27/2019): LVEF 52%. Moderate MR. Echo (05/15/2021): Normal LVEF. Mild to moderate MR. Slight improvement in mitral valve compared to prior echo. Assessment & Plan (03/23/2024 9:55 AM EDT): Patient asymptomatic with MR. 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 No intervention needed at this time Assessment & Plan (09/29/2018 3:50 PM EST): Patient asymptomatic Resolved Problems Problem Noted Date Diagnosed Date Resolved Date Chest pain 12/04/2023 12/15/2023 Chest pain 09/06/2021 09/06/2021 Hypertensive urgency 09/06/2021 021 Dyspnea on exertion 06/06/2017 06/09/20 17 Abnormal EKG 06/06/2017 11/11/2017 Overview (06/06/2017): EKG (05/2017): Atrial fibrillation with anterior lateral T-wave inversion Encounters Date Type Department Care Team Description 07/07/2025 8:44 AM EDT - 07/07/2025 11:59 PM EDT Hospital Encounter [facility] AT [address] [place] [address] Sammy Pacheco IV, MD Heart failure with improved ejection fraction (HFimpEF) Discharge Disposition: Home or Self Care 07/07/2025 Travel from Last 3 Months Immunizations Immunization Administration Dates Next Due Fluzone (or Fluarix & Flulaval for VFC) >6mos Family History Medical History Relation Name Comments Diabetes Brother 1 Heart attack Brother 1 Diabetes Brother 2 Heart attack Father Diabetes Mother No Known Problems Sister Relation Name Status Comments Brother 1 Brother 2 Father Mother Sister Alive Social History Tobacco Use Types Packs/Day Years Used Date Smoking Tobacco: Never Passive Smoke Exposure: Never Smokeless Tobacco: Never Tobacco Cessation:Counseling Given: Not Answered Alcohol Use Standard Drinks/Week Comments No 0 (1 standard drink = 0.6 oz pur e alcohol) AUDIT-C Answer Date Recorded Q1: How often do you have a drink containing alcohol? Never 12/15/2023 Q2: How many drinks containi ng alcohol do you have on a typical day when you are drinking? Patient does not drink Q3: How often do you have si x or more drinks on one occasion? Never 12/15/2023 Abuse Screen Answer Date Recorded Feels Unsafe at Home or Work/School no 12/15/2023 Feels Threatened by Someone no 01/2024 Does Anyone Try to Keep You From Having Contact with Others or Doing Things Outside Your Home? no 12/15/2023 Physical Signs of Abuse Present no 12/15/2023 Housing Stability Answer Date Recorded Current Living Arrangements home 01/2024 Potentially Unsafe Housing Conditions Not on charissa e 12/15/2023 Disabilities Answer Date Recorded Difficulty Concentrating, Remembering or Making Decisions no 12/15/2023 Difficulty Managing Errands Independently no 12/15/2023 Sex and Gender Information Value Date Recorded Sex Assigned at Not on file Legal Sex Male 12:13 PM EDT Gender Identity Not on file Sexual Orientation Not on file Occupation Industry Job Start Date Job End Date Employed Not on file Not on file Not on file Last Filed Vital Signs Vital Sign Reading Time Taken Comments Blood Pressure 154/60 07/07/2025 9:28 AM EDT Pulse 95 05/17/2025 2:04 PM EDT Temperature 36.4 C (97.5 F) 12/15/2023 7:10 AM EST Respiratory Rate 18 12/15/2023 9:58 AM EST Oxygen Saturation 96% 05/17/2025 2:04 PM EDT Inhaled Oxygen Concentration - - Weight 96.2 kg (212 lb) 07/07/2025 9:28 AM EDT Height 188 cm (6' 2 ) 07/07/2025 9:28 AM EDT Body Mass Index 27.22 07/07/2025 9:28 AM EDT Plan of Treatment Upcoming Encounters Date Type Department Care Team (Late st Contact Info) Description 11/22/2025 11:40 AM EST Office Visit [facility] [address] [place] [id number] Aubrie Alcantar APRN [address] [place] [address] Health Maintenance Due Date Last Done Comments COVID-19 Vaccine (#1) 1955 DIABETIC EYE EXAM 1960 DIABETIC FOOT EXAM 1960 URINE MICROALBUMIN-CREATININ E RATIO (uACR) 1960 TDAP/TD VACCINES (1 - Tdap) 1969 COLOGUARD 1995 COLON CANCER SCREENING 5 YEA R SIGMOIDOSCOPY 1995 COLONOSCOPY [address]CER SCREENING 1995 [address] COLONOGRAPHY 1995 FECAL OCCULT BLOOD TEST 1995 FIT Testing (1 year) 1995 ZOSTER VACCINE (1 of 2) 2000 ANNUAL WELLNESS VISIT 06/06/2017 HEPATITIS C SCREENING 06/06/2017 Pneumococcal Vaccine 50+ (2 of 2 - PPSV23, PCV20, or PCV21) 09/06/2020 07/12/2020 INFLUENZA VACCINE 05/13/2025 07/31/2022, , 07/12/2020, Additional history exists HEMOGLOBIN A1C 11/17/2025 05/17/2025, 03/0 01/2024, 12/27/2022, Additional history exists LIPID PANEL 05/17/2026 05/17/2025, 03/0 01/2024, 09/06/2021, Additional history exists Procedures Procedure Name Priority Date/Time Associated Diagnosis Comments ECHO COMPLETE W/ DOPPLER AND COLOR FLOW Routine 07/07/2025 9:28 AM EDT Heart failure with improved ejection fraction (HFimpEF) HEMOGLOBIN A1C Routine 05/17/2025 3:19 PM EDT Type 2 diabetes mellitus with diabetic polyneuropathy, without long-term current use of insulin LDL CHOLESTEROL, DIRECT Routine 05/17/2025 3:19 PM EDT Hyperlipidemia LDL goal <50 from Last 3 Months or Most Recently Relevant to Health Maintenance Results * ECHO COMPLETE W/ DOPPLER AND COLOR FLOW (07/07/2025 9:28 AM EDT) EF(MOD-bp) 51.1 % LVIDd 4.4 cm LVIDs 3.0 cm IVSd 1.10 cm LVPWd 1.20 cm FS 31.8 % IVS/LVPW 0.92 cm ESV(cubed) 27.0 ml LV Sys Vol (BSA corrected) 42.3 cm2 EDV(cubed) 85.2 ml LV Enrique Vol (BSA corrected) 91.0 cm2 LV mass(C)d 180.0 grams LVOT area 3.8 cm2 LVOT diam 2.20 cm EDV(MOD-sp2) 153.0 ml EDV(MOD-sp4) 202.0 ml ESV(MOD-sp2) 84.8 ml ESV(MOD-sp4) 93.9 ml SV(MOD-sp2) 68.2 ml SV(MOD-sp4) 108.1 ml SVi(MOD-SP2) 30.7 ml/m2 SVi(MOD-SP4) 48.7 ml/m2 SVi (LVOT) 28.2 ml/m2 EF(MOD-sp2) 44.6 % EF(MOD-sp4) 53.5 % MV E max lex 77.6 cm/sec IVRT 81.0 ms LA ESV Index (BP) 37.3 ml/m2 Med Peak E' Lex 7.6 cm/sec Lat Peak E' Lex 15.0 cm/sec TR max lex 280.0 cm/sec Avg E/e' ratio 6.87 SV(LVOT) 62.5 ml RV Base 5.5 cm RV Mid 3.6 cm RV Length 6.5 cm TAPSE (>1.6) 1.32 cm RV S' 17.6 cm/sec LA dimension (2D) 5.2 cm LV V1 max 80.5 cm/sec LV V1 max PG 2.6 mmHg LV V1 mean PG 1.50 mmHg LV V1 VTI 16.5 cm MV max PG 8.2 mmHg MV mean PG 2.00 mmHg MV V2 VTI 29.5 cm MV P1/2t 43.5 msec MVA(P1/2t) 5.1 cm2 MVA(VTI) 2.12 cm2 MV dec slope 930.0 cm/sec2 MR max lex 347.0 cm/sec MR max PG 48.2 mmHg MR mean lex 277.0 cm/sec MR mean PG 34.0 mmHg MR VTI 109.0 cm TR max PG 31.4 mmHg PA acc time 0.10 sec Ao root diam 3.9 cm RVSP(TR) 39 mmHg RAP systole 8 mmHg Ao root area (BSA corrected) 1.8 cm2 Echo EF Estimated 55.0 % Anatomical Region Laterality Modality Ultrasound Narrative 07/08/2025 6:13 PM EDT Left ventricular systolic function is normal. Estimated left ventricular EF = 55% Left atrial volume is moderately increased. Mild to moderate mitral regurgitation is present Estimated right ventricular systolic pressure from tricuspid regurgitation is mildly elevated (35-45 mmHg). Left Ventricle Left ventricular systolic function is normal. Estimated left ventricular EF = 55% Normal left ventricular cavity size and wall thickness noted. All left ventricular wall segments contract normally. Left ventricular diastolic dysfunction is noted. Right Ventricle The right ventricular cavity is mildly dilated. Left Atrium The left atrial cavity is moderately dilated. Left atrial volume is moderately increased. Mitral Valve The mitral valve is structurally normal with no significant stenosis present. Mild to moderate mitral valve regurgitation is present. Tricuspid Valve The tricuspid valve is abnormal in structure. Mild tricuspid valve regurgitation is present. Estimated right ventricular systolic pressure from tricuspid regurgitation is mildly elevated (35-45 mmHg). No evidence of significant tricuspid valve stenosis is present. Aortic Valve The aortic valve is structurally normal with no regurgitation or stenosis present. Pulmonic Valve The pulmonic valve is structurally normal with no regurgitation or significant stenosis present. Pericardium The pericardium is normal. There is no evidence of pericardial effusion. . Greater Vessels No dilation of the aortic root is present. Study Quality Arrhythmia was the predominant rhythm observed during the procedure. Sammy Pacheco IV, MD CV ECHO ORDERABL ES Final Result * (ABNORMAL) LDL Cholesterol, Direct (05/17/2025 3:19 PM EDT) LDL Cholesterol 138(H) 0 - 100 mg/dL 05/17/2025 8:49 PM EDT [facility] Blood Venipuncture / Unknown 05/17/2025 3:19 PM EDT 05/17/2025 3:19 PM EDT Narrative [facility] - 05/17/2025 8:49 PM EDT LDL Reference Ranges (U.S. Department of Health and Human Services ATP III Classifications) Optimal <100 mg/dl Near Optimal 100-129 mg/dl Borderline High 130-159 mg/dl High 160-189 mg/dl Very High >189 mg/dl Sammy Pacheco IV, MD LAB BLOOD ORDERA BLES Final Result Performing Organization Address [facility] de Phone Number [facility]
[address] [place] [address], * (ABNORMAL) Hemoglobin A1c (05/17/2025 3:19 PM EDT) Hemoglobin A1C 7.10(H) 4.80 - 5.60 % 05/17/2025 11:52 PM EDT [facility] Blood Venipuncture / Unknown 05/17/2025 3:19 PM EDT 05/17/2025 3:19 PM EDT Narrative [facility] - 05/17/2025 11:52 PM EDT Hemoglobin A1C Ranges: Increased Risk for Diabetes 5.7% to 6.4% Diabetes >= 6.5% Diabetic Goal < 7.0% Sammy Pacheco IV, MD LAB BLOOD ORDERA BLES Final Result Performing Organization Address [facility] de Phone Number [facility]
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 LIVING WILL - SCAN 09/07/2021 10:10 PM RITU SANTIZO, BHLEX, 01/31/2005 * CPR (Attempt to Resuscitate) (Latest Code Status on File) Date Activated Date Inactivated Comments 12/15/2023 10:59 AM 12/15/2023 3:42 PM Question Answer Comments Code Status (Patient has no pulse and is not breathing): CPR (Attempt to Resuscitate) Medical Interventions (Patie nt has pulse or is breathing): Full Support * CPR (Attempt to Resuscitate) Date Activated Date Inactivated Comments 09/06/2021 1:42 AM 09/06/2021 3:50 PM Question Answer Comments Code Status (Patient has no pulse and is not breathing): CPR (Attempt to Resuscitate) Medical Interventions (Patie nt has pulse or is breathing): Full Support Level Of Support Discussed With: Patient * Full Code Date Activated Date Inactivated Comments 06/09/2017 3:14 PM 06/10/2017 2:56 PM Care Teams Wash Test Checker Relationship Specialty Start Date End Date Joe George MD [address] [place] [facility] [address] [facility] [address] [id number] PCP - General Family Medicine 10/09/21
--- OUTSIDE RECORDS SUMMARY | 2025-09-09 10:49 | XMS_ITS | Encounter Summary ---
Author Organization [employer] [facility] Address [address] [place] [address] Care Team Providers Care General Foundry Worker Name Role Phone Joe George MD Primary Care Provider Reason for Visit * Reason Onset Date Comments Results 05/18/2025 Encounter Details Date Type Department Care Team (Late st Contact Info) Description 05/18/2025 Results Follow-Up [facility] [address] [facility] [address] [place] [address] Sammy Pacheco IV, MD [address] [facility] [address] [place] [address] Results Social History Tobacco Use Types Packs/Day Years Used Date Smoking Tobacco: Never Passive Smoke Exposure: Never Smokeless Tobacco: Never Alcohol Use Standard Drinks/Week Comments No 0 [...] file Not on file Not on file documented as of this encounter Miscellaneous Notes * Telephone Encounter - Caron Bliss RN - 05/18/2025 4:24 PM EDT Left detailed message to call back to see if he was taking his cholesterol medication. If not, why?Also if he would be interested with taking injectable cholesterol medication. Will await return call. documented in this encounter Plan of Treatment Upcoming Encounters Date Type Department Care Team (Late st Contact Info) Description 11/22/2025 11:40 AM EST Office Visit [facility] [address] [facility] [place] [address] Aubrie Alcantar APRN [address] [facility] [address] [place] [address] documented as of this encounter Visit Diagnoses Not on filedocumented in this encounter Care Teams General Foundry Worker Relationship Specialty Start Date End Date Joe George MD [address] [facility] [address] [place] [address] PCP - General Family Medicine 10/09/21 documented as of this encounter
--- OUTSIDE RECORDS SUMMARY | 2025-09-09 10:49 | XMS_ITS | Clinical Summary ---
Author Organization [facility] Address [address] [place] [address] Care Team Providers Care Fast Food Services Manager Name Role Phone Ata Williamson MD Unavailable [phone] Bora Varner MD Unavailable [phone] Joe George MD Primary Care Provider [phone] Allergies No known active allergies Medications atorvastatin (Lipitor) 40 MG tablet Take 1 tablet (40 mg) by mouth every night. 09/16/2022 Active sacubitril-vals edyanira (Entresto) 24-26 MG tablet Take 1 tablet by mouth 1 (one) time each day. 11/04/2022 Active Jardiance 10 MG Take 1 tablet (10 mg) by mouth 1 (one) time each day. 03/28/2023 Active metoprolol succinate XL (Toprol-XL) 100 MG 24 hr tablet Take 0.5 tablets (50 mg) by mouth 2 (two) times a day. 09/10/2023 Active insulin aspart protamine-insul in aspart (NovoLOG Mix 70-30) (70-30) 100 UNIT/ML injection vial Inject 36 Units under the skin 2 (two) times a day with meals. Active Eliquis 5 MG tablet Take 1 tablet (5 mg) by mouth every 12 (twelve) hours. Active aspirin 81 MG EC tablet Take 1 tablet (81 mg) by mouth Daily. 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 Diabetic [...] III symptoms Coronary artery disease invo lving craig coronary artery of craig heart with angina pectoris 06/06/2017 Overview (01/01/2023): [...] in 2 weeks Type 2 diabetes mellitus, [facility] long-term current use of insulin 06/06/2017 Overview (01/01/2023): Intolerant to empagliflozin Last Assessment & Plan: Continue statin therapy Obtain hemoglobin A1c Hyperlipidemia LDL goal <70 06/06/2017 Overview (01/01/2023): High intensity statin therapy indicated given the presence coronary disease Last Assessment & Plan: Not to goal Increase atorvastatin 80 mg nightly CMP and lipids in 6 weeks Resolved Problems Problem Noted Date Diagnosed Date Resolved Date Acute respiratory failure 12/24/2022 Overview (12/24/2022): Intubated for surgery Will keep intubated/sedated over night and wake up in morning Obtain ABG now, adjust vent accordingly Sedation: Propofol/dilaudid Adjust ventilator for oxygen and ventilation needs Wean Fi02 for SAT>90% F/u ABG and cxr 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 12/20/2022 Immunizations Immunization Administration Dates Next Due Influenza, high-dose, quadrivalent 07/12/2020 Influenza, injectable, quadrivalent, preservativ e free 09/06/2021 Influenza, trivalent, adjuvanted 07/09/2017 Pneumococcal Conjugate PCV 13 07/12/2020 Family History Medical History Relation Name Comments Heart attack Brother Heart attack Father Diabetes Mother Anesthesia problems Neg Hx Malig Hyperthermia Neg Hx Relation Name Status Comments Brother Father Mother Social History Tobacco Use Types Packs/Day Years Used Date Smoking Tobacco: Never Passive Smoke Exposure: Never Smokeless Tobacco: Never Tobacco Cessation:Counseling Given: Not Answered Alcohol Use Standard Drinks/Week Comments Never 0 (1 standard drink = 0.6 oz pur e alcohol) PHQ-2 Answer Date Recorded Patient Health Questionnaire-2 Score 0 03/09/2024 CAGE ASSESSMENT Answer Date Recorded Cage unable to access Not on file 01/08/2023 Cage max number of drinks Not on file 2022 Cage Beverages a week Not on file 01/08/2023 Have you ever felt you should CUT down on your d rinking? 0 01/08/2023 Have you been ANNOYED by people criticizing your drinking? 0 01/08/2023 Have you felt GUILTY about your drinking? 0 01/08/2023 Have you had a drink first t petra in the morning ([employer] DBA) to steady your nerves or to get rid of a hangover? 0 01/08/2023 CAGE Questionnaire Score 0 023 PHQ-2A Answer Date Recorded Patient Health Questionnaire-2 Score 0 01/16/2023 Sex and Gender Information Value Date Recorded Sex Assigned at Male 12/24/2022 11:10 AM EDT Legal Sex Male 7:47 PM EDT Gender Identity Male 12/24/2022 11:10 AM EDT Sexual Orientation Not on file Last Filed Vital Signs Vital Sign Reading Time Taken Comments Blood Pressure 156/79 03/18/2025 10:41 AM EDT Pulse 74 03/18/2025 10:41 AM EDT Temperature 36.6 C (97.8 F) 03/18/2025 10:41 AM EDT Respiratory Rate 16 03/18/2025 10:4 1 AM EDT Oxygen Saturation 98% 03/18/2025 10: 41 AM EDT Inhaled Oxygen Concentration - - Weight 99.3 kg (218 lb 14.7 oz) 025 10:41 AM EDT Height 188 cm (6' 2 ) 05/12/2024 3:46 PM EDT Body Mass Index 28.11 05/12/2024 3:46 PM EDT Plan of Treatment Upcoming Encounters Date Type Department Care Team (Late st Contact Info) Description 09/13/2025 10:45 AM EST Office Visit [facility] [address] , [address] [place] [address] Bora Varner MD [address] [facility] [address] [place] [address] Health Maintenance Due Date Last Done Comments [facility]-Hepatitis C Screening 1950 [facility]-Medicare Annual Wellness (AWV) 1950 [facility]-/Child/Adol SDOH Screenings 1950 Diabetes: Dental Exam 1960 [facility]- SDOH Screenings 1968 [facility]-Adult SDOH Screenings 1968 CT Colonography 1995 Colonoscopy 1995 FIT-DNA 1995 FIT 1995 FOBT 1995 Sigmoidoscopy 1995 [facility]-Colorectal Cancer Screening 1995 [facility]-Zoster Vaccines (1 of 2) 10/13/2017 08/18/2017 [facility]-Pneumococcal Vaccine: 50+ Years (2 of 2 - PPSV23, PCV20, or PCV21) 09/06/2020 07/12/2020 SOT-VLBHA-15 Vaccine (3 - Moderna risk series) 02/21/2021 01/24/2021, 12/27/2020 [facility]-Diabetes: Hemoglobin A1C 03/15/202401/2024, 12/27/2022, 09/06/2021, Additional history exists [facility]-Depression Screening 03/09/2025 03/09/2024 [facility]-Influenza Vaccine (#1) 06/13/202509/14, 07/18/2023, 09/06/2021, Additional history exists [facility]-DTaP,Tdap,and Td Vaccines (2 - Td or Tdap) 10/14/2026 10/14/2016 [facility]-RSV Vaccine: 60+ Years or Completed 07/18/2023 [facility]-Obesity Intervention Completed 024, 03/09/2024, 01/15/2023 HPV Vaccines Aged Out No longer eligi ble based on patient's age to complete this topic [facility]-HIB Vaccines Aged Out No longer e ligible based on patient's age to complete this topic [facility]-Hepatitis A Vaccines Aged Out No longer eligible based on patient's age to complete this topic [facility]-IPV Vaccines Aged Out No longer e ligible based on patient's age to complete this topic [facility]-Rotavirus Vaccines Aged Out No lo nger eligible based on patient's age to complete this topic Medical Devices Implanted Type Area Restaurant Assistant Device Identifier Shelf Expiration Date Model / Serial / Lot Pin Pin Right: Shoulder Screw Screw Right: Ankle Procedures Procedure Name Priority Date/Time Associated Diagnosis Comments HEMOGLOBIN A1C Routine 12/27/2022 3:26 AM EDT from Last 3 Months or Most Recently Relevant to Health Maintenance Results * (ABNORMAL) Hemoglobin A1c (12/27/2022 3:26 AM EDT) Hemoglobin A1c 7.7(H) <5.7 % 12/27/2022 5:13 AM EDT [facility] Blood Venous blood specimen / Unknown Venipuncture / Unknown 12/27/2022 3:26 AM EDT 12/27/2022 3:36 AM EDT Narrative [facility] - 12/27/2022 5:13 AM EDT HA1C Interpretive Data: Diagnosis of Diabetes: Diabetic > or = 6.5% Pre-diabetic 5.7 to 6.4% Non-diabetic < or = 5.6% Glycemic Targets for Type I and Type II Diabetics: Non- Adults <7.0% Adults <6.0% Children and Adolescents <7.5% Source: [place] [employer]. Standards of medical care in diabetes,2017. Diabetes Care.2017:40 (suppl 1):S1-S135. HbA1c assay performed by an ion-exchange chromatography method that is certified traceable to the DCCT. us Louie Ace MD LAB BLOOD ORDERABLES Final Resul t [facility] [address] [place] [address] from Last 3 Months or Most Recently Relevant to Health Maintenance Insurance MEDICARE [facility] Advance Directives * Full Code (Latest Code Status on File) Date Activated Date Inactivated Comments 01/08/2023 5:49 PM 01/11/2023 9:22 PM Question Answer Comments Patient has decision-making capacity? Yes Care Teams Fast Food Services Manager Relationship Specialty Start Date End Date Joe George MD [address] [place] [address] PCP - General 12/04/23 [place] [address] [place] [address] 12/11/22 Bora Varner MD [address] [place] [address] [address] Surgeon Otolaryngology 12/11/22
--- OUTSIDE RECORDS SUMMARY | 2025-09-09 10:50 | XMS_ITS | Clinical Summary ---
Author Organization [employer] ([place], [place], [place], [place], [place]) Address [address] [place] [address] Care Team Providers Care Sausage Mixer Name Role Phone Neelam Hameed PA-C Unavailable [phone] Joe George MD Primary Care Provider [phone] Allergies No known active allergies Medications apixaban (ELIQUIS) 5 mg Tab tablet Take 1 tablet (5 mg total) by mouth 2 (two) times daily. Active atorvastatin (LIPITOR) 40 MG tablet Take 1 tablet (40 mg total) by mouth daily. 09/16/2022 Active sacubitriL-valsa rtan (Entresto) 24-26 mg tablet Take 1 tablet by mouth daily. Active Jardiance 10 mg tablet Take 1 tablet (10 mg total) by mouth daily. 11/27/2022 Active insulin aspart protamine-insuli n aspart (NovoLOG MIX 70/30) 100 unit/mL (70-30) Soln injection Inject 0.3 mLs (30 Units total) subcutaneou sly. Active nitroglycerin (NITROSTAT) 0.[address] under the tongue. 06/24/2023 Active glycopyrrolate (ROBINUL) 1 mg tabletIndication s:Sialorrhea Take 1 tablet (1 mg total) by mouth 2 (two) times daily as needed. 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 The left main stenosis is not hemodynamically significant by RFR. 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 No intervention needed at this time Chronic systolic heart failure 06/06/2017 Overview (03/26/2023): NYHA class IV heart failure symptoms, 05/2017 [...] to empagliflozin (UTI) CMP in 2 weeks HFrEF with normalized LV systolic function and stable NYHA class II symptoms C/w home Entresto, metoprolol Optimize volume status NYHA class IV heart failure symptoms, 05/2017 [...] to empagliflozin (UTI) CMP in 2 weeks Hyperlipidemia LDL goal <70 06/06/2017 Overview (03/26/2023): High intensity statin therapy indicated given the presence coronary disease Last Assessment & Plan: Not to goal Increase atorvastatin 80 mg nightly CMP and lipids in 6 weeks High intensity statin therapy indicated given the presence coronary disease Last Assessment & Plan: Not to goal Increase atorvastatin 80 mg nightly CMP and lipids in 6 weeks Non-rheumatic mitral regurgitation 06/06/2017 Overview (03/26/2023): Echo (06/06/17): Moderately reduced LV systolic function. Severe mitral regurgitation. RVSP approximate 70 mmHg Echo (07/23/2017): LVEF 45%. Moderate MR. RVSP 26 mmHg. Atrial fibrillation noted through throughout. Echo (07/27/2019): LVEF 52%. Moderate MR. Echo (05/15/2021): Normal LVEF. Mild to moderate MR. Slight improvement in mitral valve compared to prior echo. Last Assessment & Plan: Stable NYHA class III symptoms Echo (06/06/17): Moderately reduced LV systolic function. Severe mitral regurgitation. RVSP approximate 70 mmHg Echo (07/23/2017): LVEF 45%. Moderate MR. RVSP 26 mmHg. Atrial fibrillation noted through throughout. Echo (07/27/2019): LVEF 52%. Moderate MR. Echo (05/15/2021): Normal LVEF. Mild to moderate MR. Slight improvement in mitral valve compared to prior echo. 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 Immunizations Immunization Administration Dates Next Due INFLUENZA TRIVALENT ADJUVANTED PF IM 07/09/2017 Influenza Four-QIV PF 3+YR IM 09/06/2021 Influenza High Dose Preservative Free IM ([id number] ) 07/31/2022,07/12/2020 Pneumococcal Conjugate (Prevnar) 13-Valent 07/12 Family History Medical History Relation Name Comments Benign prostatic hyperplasia Brother 1 [place] Heart attack Brother 1 [place] Heart disease Brother 1 [place] Hypertension Brother 1 [place] Aneurysm Brother 2 [place] Cirrhosis Brother 2 [place] Diabetes Brother 2 [place] Heart disease Brother 2 [place] No Known Problem Daughter 1 [place] No Known Problem Daughter 2 Krista Heart attack Father Heart disease Father Hypertension Father Diabetes Mother No Known Problem Sister Relation Name Status Comments Brother 1 [place] Brother 2 [place] Daughter 1 [place] Alive Daughter 2 Krista Alive Father Mother Sister Alive Social History Tobacco Use Types Packs/Day Years Used Date Smoking Tobacco: Never Passive Smoke Exposure: Never Smokeless Tobacco: Never Tobacco Cessation:Counseling Given: Not Answered Alcohol Use Standard Drinks/Week Comments Never 0 (1 standard drink = 0.6 oz pur e alcohol) Family and Community Support Answer Jez e Recorded Help with Day to Day Activities Not on file 10/31/2023 Feeling Lonely or Isolated Not on file 10/31 Educational Attainment Answer Date Mahad rded Speak language other than Frisian at home Not on file 10/31/2023 Want help with school or training Not on file 10/31/2023 Substance Use Answer Date Recorded Used prescription meds for non-medical reasons N ot on file 10/31/2023 Used illegal drugs past 12 months Not on file 10/31/2023 Sex and Gender Information Value Date Recorded Sex Assigned at Not on file Legal Sex Male 7:29 PM CDT Gender Identity Not on file Sexual Orientation Not on file Last Filed Vital Signs Vital Sign Reading Time Taken Comments Blood Pressure 180/100 12/04/2023 8:49 AM EST Pulse 65 12/04/2023 8:49 AM EST Temperature 36.7 C (98 F) 03/26/2023 2:03 PM EDT Respiratory Rate 18 03/26/2023 2:03 PM EDT Oxygen Saturation 94% 08/29/2023 10:12 AM EST Inhaled Oxygen Concentration - - Weight 98.9 kg (218 lb) 12/04/2023 8:49 AM EST Height 188 cm (6' 2 ) 08/29/2023 10:12 AM EST Body Mass Index 27.99 08/29/2023 10:12 AM EST Plan of Treatment Health Maintenance Due Date Last Done Comments Medicare Initial AWV G0438 CT Colonography 1950 Colonoscopy 1950 Colorectal Cancer Screening 1950 FOBT/FIT 1950 Fit-DNA (Cologuard) 1950 Sigmoidoscopy 1950 Depression Screening (12+) 1962 Hepatitis C Screening 1968 DTAP/TDAP/TD VACCINES (1 - Tdap) 1969 Shingles Vaccine (Zoster) (1 of 2) 2000 Respiratory Syncytial Virus (RSV) Adult or (1 - Risk 60-74 years 1-dose series) 2010 Pneumococcal 50+ years (2 of 2 - PPSV23, PCV20, or PCV21) 09/06/2020 07/12/2020 Falls Risk Screening 10/13/2024 COVID-19 VACCINE (1 - 2023-2 5 season) 2025 Influenza Vaccine (#1) 2025 2, 09/06/2021, 07/12/2020, Additional history exists Tobacco Cessation Counseling and Screening (12+) 10/07/2025 10/07/2024 Insurance [facility] MEDICARE PPO Care Teams Sausage Mixer Relationship Specialty Start Date End Date Joe George MD [address] [place] [address] PCP - General Family Medicine 12/10/22 Neelam Hameed, PAFrankC [address] [place] [address] Physician Assistant Nurse Manager Oncology 12/09/22
--- OUTSIDE RECORDS SUMMARY | 2025-09-09 10:50 | XMS_ITS | Encounter Summary ---
Author Organization [facility] Address [address] [place] [address] Care Team Providers Care Poultry Helper Name Role Phone Ata Williamson MD Unavailable [phone] Bora Varner MD Unavailable [phone] Pcp, No Primary Care Provider Unavailabl e Joe George MD Primary Care Provider [phone]- [phone] Encounter Details Date Type Department Care Team (Late st Contact Info) Description 11/22/2022 Orders Only External Location [address] [place] [address] Provider, External Social History Tobacco Use Types Packs/Day Years Used Date Smoking Tobacco: Never Assessed Sex and Gender Information Value Date Recorded Sex Assigned at Male 12/24/2022 11:10 AM EDT Legal Sex Male 7:47 PM EDT Gender Identity Male 12/24/2022 11:10 AM EDT Sexual Orientation Not on file documented as of this encounter Plan of Treatment Upcoming Encounters Date Type Department Care Team (Late st Contact Info) Description 09/13/2025 10:45 AM EST Office Visit Pav [facility] Head, Neck & Respiratory [address] [facility], [address]nd [place] [address] Bora Varner MD 800 [facility] [address] [place] [phone] documented as of this encounter Procedures Procedure Name Priority Date/Time Associated Diagnosis Comments CT NEURO OUTSIDE IMAGES 11/22/2022 1:34 PM EST documented in this encounter Results * CT NEURO OUTSIDE IMAGES (11/22/2022 1:34 PM EST) Anatomical Region Laterality Modality Computed Tomogra phy 11/22/2022 1:34 PM EST us External Provider IMG CT PROCEDURES Final Result documented in this encounter Visit Diagnoses Not on filedocumented in this encounter Care Teams Poultry Helper Relationship Specialty Start Date End Date Pcp, No [address] [place] [address] PCP - General Family Medicine 12/18/22 12/03/23 Joe George MD [address] [place] [address] PCP - General 12/04/23 Ata Williamson MD [address] [place] [address] 12/11/22 Bora Varner MD 800 [facility] [address] [place] [phone] Surgeon Otolaryngology 12/11/22 documented as of this encounter
--- OUTSIDE RECORDS SUMMARY | 2025-09-09 10:50 | XMS_ITS | Encounter Summary ---
Author Organization [facility] Address [address] [place] [address] Care Team Providers Care Sports Physician Name Role Phone Ata Williamson MD Unavailable [phone] Bora Varner MD Unavailable [phone] Pcp, No Primary Care Provider Unavailabl e Joe George MD Primary Care Provider [phone]- [phone] Encounter Details Date Type Department Care Team (Late st Contact Info) Description 12/03/2022 Orders Only External Location [address] [place] [address] Provider, External Social History Tobacco [...] Pav [facility] Head, Neck & Respiratory [address] [facility], [address] [place] [address] Bora Varner MD 800 [facility] [address] [place] [phone] documented as of this encounter Procedures Procedure Name Priority Date/Time Associated Diagnosis Comments US OUTSIDE IMAGES 12/03/2022 12:54 PM EST documented in this encounter Results * US OUTSIDE IMAGES (12/03/2022 12:54 PM EST) Anatomical Region Laterality Modality Ultrasound 12/03/2022 12:5 4 PM EST us External Provider IMG US PROCEDURES Final Result documented in this encounter Visit Diagnoses Not on filedocumented in this encounter Care Teams Sports Physician Relationship Specialty Start Date End Date Pcp, No [address] [place] [address] PCP - General Family Medicine 12/18/22 12/03/23 Joe George MD [address] [place] [address] PCP - General 12/04/23 [place] [address] [place] [address] 12/11/22 Bora Varner MD 800 [facility] [address] [place] [phone] Surgeon Otolaryngology 12/11/22 documented as of this encounter
--- OUTSIDE RECORDS SUMMARY | 2025-09-09 10:50 | XMS_ITS | Clinical Summary ---
Author Organization [facility] Address [address] [facility], [address] [place] [address] Care Team Providers Care Carport Erector Name Role Phone Joe George MD Primary Care Provider [phone] Allergies No known active allergies Medications apixaban (ELIQUIS) 5 MG TABS tablet Take 1 tablet by mouth 2 times daily Active empagliflozin (JARDIANCE) 10 MG tablet Take 1 tablet by mouth daily Active sacubitril-valsa rtan (ENTRESTO) 24-26 MG per tablet Take 1 tablet by mouth daily Active insulin aspart prot & aspart (NOVOLOG MIX 70/30 FLEXPEN) injection pen 3 times daily 30-36 units Active metoprolol succinate (TOPROL XL) 100 MG extended release tablet Take 1 tablet by mouth daily Active torsemide (DEMADEX) 10 MG tablet Take 1 tablet by mouth as needed Active aspirin 81 MG EC tablet Take 1 tablet by mouth daily Active atorvastatin (LIPITOR) 40 MG tablet Take 1 tablet by mouth daily Active Active Problems Problem Noted Date Diagnosed Date Post-traumatic arthritis of ankle, right 023 Social History Tobacco Use Types Packs/Day Years Used Date Smoking Tobacco: Never Smokeless Tobacco: Never Tobacco Cessation:Counseling Given: Not Answered Alcohol Use Standard Drinks/Week Comments Not Currently 0 (1 standard drink = 0.6 oz pur e alcohol) RARE once a month Interpersonal Safety Domain Source: IP Abuse Scr eening Answer Date Recorded Physical abuse Denies 01/20/2025 Verbal abuse Denies 01/20/2025 Emotional abuse Denies 01/20/2025 Financial abuse Denies 01/20/2025 Sexual abuse Denies 01/20/2025 Sex and Gender Information Value Date Recorded Sex Assigned at Not on file Legal Sex Male 4:23 PM EST Gender Identity Not on file Sexual Orientation Not on file Last Filed Vital Signs Vital Sign Reading Time Taken Comments Blood Pressure 125/89 01/20/2025 4:23 PM EDT Pulse 63 01/20/2025 4:23 PM EDT Temperature 36 C (96.8 F) 01/20/2025 4:23 PM EDT Respiratory Rate 14 01/20/2025 4:23 PM EDT Oxygen Saturation 99% 01/20/2025 4:23 PM EDT Inhaled Oxygen Concentration - - Weight 95.9 kg (211 lb 6.4 oz) 01/20/2025 9:31 A M EDT Height 188 cm (6' 2.02 ) 01/20/2025 9:31 AM EDT Body Mass Index 27.13 01/20/2025 9:31 AM EDT Plan of Treatment Health Maintenance Due Date Last Done Comments Lipids 1960 Depression Screen 1962 Hepatitis C screen 1968 DTaP/Tdap/Td vaccine (1 - Tdap) 1969 Colonoscopy 1995 Colorectal Cancer Screen 1995 FIT/FOBT: Average risk 1995 Fecal-DNA (Cologuard): Average risk 1995 Sigmoidoscopy/CT colonography 1995 Shingles vaccine (1 of 2) 2000 Respiratory Syncytial Virus (RSV) or age 60 yrs+ (1 - Risk 60-74 years 1-dose series) 2010 Pneumococcal 50+ years Vaccine (2 of 2 - PCV20 or PCV21) 07/12/2021 07/12/2020 Annual Wellness Visit (Medicare) 03/27/2025 Flu vaccine (#1) 05/13/2025 07/31/2022, , 07/12/2020, Additional history exists COVID-19 Vaccine ( - season) 2025 Hepatitis A vaccine Aged Out No longe r eligible based on patient's age to complete this topic Hepatitis B vaccine Aged Out No longe r eligible based on patient's age to complete this topic Hib vaccine Aged Out No longer eligi ble based on patient's age to complete this topic Meningococcal (ACWY) vaccine Aged Out No longer eligible based on patient's age to complete this topic Meningococcal B vaccine Aged Out No l onger eligible based on patient's age to complete this topic Polio vaccine Aged Out No longer elig ible based on patient's age to complete this topic Medical Devices Implanted Type Area Roof Shingler Device Identifier Shelf Expiration Date Model / Serial / Lot Screw Omero 6.5mm X L60mm 16mm Thrd - [id number] Implanted:Qty: 1 on 06/12/2023 by Nino Treviño MD at [facility] Screw/ Plate/ Nail/R od Right: Foot ARIELLE: ORTHOPAEDICS-PMM [id number] / / Kit Grft Sub 2xsm 0.7ml 1.05mg Rhbmp-[address] H2o Cllgn - [id number] Implanted:Qty: 1 on 03/13/2023 by Nino Treviño MD at [facility] Right: Ankle [employer] SPINALGRAFT TECH-WD 09/11/2024 [id number] / / [id number] Extremity Medical Biofuse Pro Osteo Viable Matrix 5cc Implanted:Qty: 1 on 03/13/2023 by Nino Treviño MD at [facility] Right: Ankle 07/22/2024 [id number] / [id number] / Graft Bone Sub 2ml Hum Braydon Demin Fbr Stagrft - [id number] Implanted:Qty: 1 on 03/13/2023 by Nino Treviño MD at [facility] Right: Ankle SANTO BIOMET TRAUMA-WD [id number] 09/19/2025 [id number] / / [id number] Screw Bne Sm L25mm Aqua For Io Fix X-Post Iofix 2.0 - [id number] Implanted:Qty: 1 on 03/13/2023 by Nino Treviño MD at [facility] Right: Ankle EXTREMITY MEDICAL-WD [id number] / / Screw Bone Sm L30mm Aqua For Intoss Fixationx-Post Iofix 2.0 - [id number] Implanted:Qty: 1 on 03/13/2023 by Nino Treviño MD at [facility] Right: Ankle [facility] [id number] / / Screw Bone L45mm Dia5mm Tapr Lck For Intoss Fix Iofix 2.0 - [id number] Implanted:Qty: 1 on 03/13/2023 by Nino Treviño MD at [facility] Right: Ankle [facility] [id number] / / Screw Bne L50mm Dia5mm Tapr Alma For Io Fix Iofix 2.0 - [id number] Implanted:Qty: 1 on 03/13/2023 by Nino Treviño MD at [facility] Right: Ankle EXTREMITY [facility] [id number] / / Screw Bone L45mm Dia4.5mm Hd Nonlocking Lo Prof For Intoss - [id number] Implanted:Qty: 1 on 03/13/2023 by Nino Treviño MD at [facility] Right: Ankle [facility] [id number] / / Screw Bne L40mm Dia4mm Canc Ti Nonlocking For Sm Frag - [id number] Implanted:Qty: 2 on 03/13/2023 by Nino Treviño MD at [facility] Right: Ankle S[employer]O [employer] TRAUMA- [id number] / / Graft Bne Sub 1cc Demin Bne Mtrx Ptty Osteoinductive Inj - [id number] Implanted:Qty: 1 on 06/12/2023 by Nino Treviño MD at [facility] Right: Foot [employer]- 11/13/2024 [id number] / [id number] / Graft Bne Sub 1cc Demin Bne Mtrx Ptty Osteoinductive Inj - [id number] Implanted:Qty: 1 on 06/12/2023 by Nino Treviño MD at [facility] Right: Foot [employer]- 11/13/2024 [id number] / [id number] / Graft Bne Sub 1cc Demin Bne Mtrx Ptty Osteoinductive Inj - [id number] Implanted:Qty: 1 on 06/12/2023 by Nino Treviño MD at [facility] Right: Foot [employer]- 11/13/2024 [id number] / [id number] / Graft Bone Sub 5ml Hum Braydon Demin Fbr Stagrft - [id number] Implanted:Qty: 1 on 06/12/2023 by Nino Treviño MD at [facility] Right: Foot [employer]- [id number] 04/08/2025 [id number] / / [id number] Kit Grft Sub 2xsm 0.7ml 1.05mg Rhbmp-[address] H2o Cllgn - [id number] Implanted:Qty: 1 on 06/12/2023 by Nino Treviño MD at [facility] Right: Foot [employer] SPINALGRAFT TECH- 09/11/2024 [id number] / / [id number] Description:Passed off to CS T AT 1000 Graft Bone Sub 5ml Hum Braydon Demin Fbr Stagrft - [id number] Implanted:Qty: 1 on 06/12/2023 by Nino Treviño MD at [facility] Right: Foot S[employer]- 04/08/2025 [id number] / / [id number] Plate Bne Tibiotalocalcaneal Anterolateral Axsos 3 [id number] - [id number] Implanted:Qty: 1 on 06/12/2023 by Nino Treviño MD at [facility] Right: Foot [employer]LE [employer] [facility] [id number] / / Screw Bne Omero 6.5x55 Mm 16 Mm Thrd Axsos 3 - [id number] Implanted:Qty: 1 on 06/12/2023 by Nino Treviño MD at [facility] Right: Foot [employer] [facility] [id number] / / Screw Bne L28mm Dia4mm Ti Ally Alma Full Thrd T15 Drv Axsos - [id number] Implanted:Qty: 1 on 06/12/2023 by Nino Treviño MD at [facility] Right: Foot [employer] [facility] [id number] / / Screw Bne L30mm Dia4mm Ti Ally Alma Full Thrd T15 Drv Axsos - [id number] Implanted:Qty: 1 on 06/12/2023 by Nino Treviño MD at [facility] Right: Foot [facility] [id number] / / Screw Bne L32mm Dia4mm Ti Ally Alma Full Thrd T15 Drv Axsos - [id number] Implanted:Qty: 2 on 06/12/2023 by Nino Treviño MD at [facility] Right: Foot [employer] [id number] / / Screw Bne L36mm Dia4mm Std Canc Ti St Alma Lo Prof For Axsos - [id number] Implanted:Qty: 1 on 06/12/2023 by Nino Treviño MD at [facility] Right: Foot [employer] [facility] [id number] / / Screw Bne L38mm Dia4mm Std Canc Ti St Alma Lo Prof For Axsos - [id number] Implanted:Qty: 1 on 06/12/2023 by Nino Treviño MD at [facility] Right: Foot [employer] [facility] [id number] / / K Wire Fix L150mm Dia2mm S Stl Sgl End Smooth Sgl Shrp Tip - [id number] Implanted:Qty: 5 on 06/12/2023 by Nino Treviño MD at [facility] Right: Foot [employer] [facility] [id number] / / Graft Bne Substitute 5 Cc Viable Mtrx Can Mtx - [id number] Implanted:Qty: 1 on 01/20/2025 by Nino Treviño MD at [facility] Right: Foot [employer]ITY [employer]- 07/30/2025 [id number] / O / [id number] Graft Bne Sub [id number] [id number] [place] Crest - [id number] Implanted:Qty: 1 on 01/20/2025 by Nino Treviño MD at [facility] Right: Foot [employer]- [id number] 08/06/2027 [facility] / [id number] / Graft Bne Substitute 5 Cc Viable Mtrx Can Mtx - [id number] Implanted:Qty: 1 on 01/20/2025 by Nino Treviño MD at [facility] Right: Foot [employer]- 07/30/2025 [id number] / / [id number] 35-017 Kit Grft Sub 2xsm 0.7ml 1.05mg Rhbmp-[address] H2o Cllgn - [id number] Implanted:Qty: 1 on 01/20/2025 by Nino Treviño MD at [facility] [employer] SPINALGRAFT TECH- 11/12/2025 [id number] / / [id number] Beam Fix 4.5x60 Mm - [id number] Implanted:Qty: 1 on 01/20/2025 by Nino Treviño MD at [facility]- [id number] / / Beam Fix L110mm Dia5.5mm Arth For Charcot Deformity [place] - [id number] Implanted:Qty: 1 on 01/20/2025 by Nino Treviño MD at [facility]- [id number] / / Beam Fix 6.5x125 Mm Charcoat Fix Sys [place] - [id number] Implanted:Qty: 1 on 01/20/2025 by Nino Treviño MD at [facility]- [id number] / / Screw Bne 8.5x120 Mm Fix Beam For Charcot Fix Sys [place] - [id number] Implanted:Qty: 1 on 01/20/2025 by Nino Treviño MD at [facility] MEDICAL- [id number] / / Insurance [facility] MEDICARE MEDICARE MEDICARE MEDICARE SUPP Advance Directives Documents on File Type Date Recorded Patient President And Cmo Expl anation ACP-Advance Directive 03/19/2023 12:03 AM ACP-Advance Directive 03/18/2023 11:13 PM * Full Code (Latest Code Status on File) Date Activated Date Inactivated Comments 03/13/2023 5:35 PM 03/14/2023 11:55 AM Care Teams Carport Erector Relationship Specialty Start Date End Date Joe George MD [facility] [address] [facility] [address] [place] [phone] PCP - General 03/06/23
--- OUTSIDE RECORDS SUMMARY | 2025-09-09 10:50 | XMS_ITS | Encounter Summary ---
Author Organization [facility] Address [address] [place] [address] Care Team Providers Care Senior Application Programmer Name Role Phone Ata Williamson MD Unavailable [phone] Bora Varner MD Unavailable [phone] Pcp, No Primary Care Provider Unavailabl e Joe George MD Primary Care Provider [phone] Encounter Details Date Type Department Care Team (Late st Contact Info) Description 12/23/2022 Lab Requisition [facility] [address] [place] [phone] Bora Varner MD [address] [facility] [address] [place] [phone] Localized enlarged lymph nodes Social History Tobacco Use Types Packs/Day Years Used Date Smoking Tobacco: Never Passive Smoke Exposure: Never Smokeless Tobacco: Never Alcohol Use Standard Drinks/Week Comments Never 0 (1 standard drink = 0.6 oz pur e alcohol) PHQ-2 Answer Date Recorded Patient Health Questionnaire-2 Score 0 12/18/2022 Sex and Gender Information Value Date Recorded Sex Assigned at Male 12/24/2022 11:10 AM EDT Legal Sex Male 7:47 PM EDT Gender Identity Male 12/24/2022 11:10 AM EDT Sexual Orientation Not on file COVID-19 Exposure Response Date Recorded In the last 10 days, have yo u been in contact with someone who was confirmed or suspected to have Coronavirus/COVID-19? No / Unsure 12/24/2022 11:10 AM EDT documented as of this encounter Functional Status * Calculated C-SSRS Risk Score (Lifetime/Recent) Answer Date of Assessment Author No Risk Indicated 12/25/2022 12:00 PM EDT Mckayla Martinez * Question Answer Date of Assessment Author 1. Wish to be (Past 1 Month) No 023 12:[address] 2. Non-Specific Active Suici fariba Thoughts (Past 1 Month) No 12/25/2022 12:[address] 6. Suicidal Behavior (Lifetime) No 12:[address] documented as of this encounter Plan of Treatment Upcoming Encounters Date Type Department Care Team (Late st Contact Info) Description 09/13/2025 10:45 AM EST Office Visit [facility] Head[facility] Neck [facility] Respiratory [address] [facility], [address]nd [place] [address] Bora Varner MD [address] [facility] [address] [place] [phone] documented as of this encounter Procedures Procedure Name Priority Date/Time Associated Diagnosis Comments CYTOLOGY CONSULT Routine 12/23/2022 9:57 AM EDT Localized enlarged lymph nodes documented in this encounter Results * Cytology Consult (12/23/2022 9:57 AM EDT) Case Report Cytology Case: [id number] Authorizing Provider: Bora Varner MD Collected: 12/23/2022 0957 Ordering Location: [facility] Lab Received: 12/23/202257 Pathologist: Lisy Cox MD Specimen: Neck, Left, Fine Needle Aspiration, [id number] 12/25/2022 5:36 PM EDT [facility] Final Diagnosis A. LEFT NECK MASS, LYMPH NODE, FINE NEEDLE ASPIRATION (OUTSIDE CASE [id number], COLLECTED 12/03/2022) - POSITIVE FOR MALIGNANCY, SQUAMOUS CELL CARCINOMA (SEE COMMENT). 12/25/2022 5:36 PM EDT [facility] at 1736 EDT Comment P16 immunostaining was attempted by the referring institution, but the material was too scant for definitive interpretation of the stain. 12/25/2022 5:36 PM EDT [facility] Clinical Information R59.0 - Localized enlarged lymph nodes [ICD-10-CM] 12/25/2022 5:36 PM EDT [facility] Gross Description A. [id number] For clinical data and diagnosis (MALIGNANT) for this specimen ([id number]/FNA) see final report issued by [facility] Pathology Department. 12/25/2022 5:36 PM EDT [facility] Fine Needle Aspirate Neck structure / Unknown 12/23/2022 9:57 AM EDT 12/23/2022 9:57 AM EDT us Bora Varner MD LAB PATHOLOGY ORDERABLES Fin al Result [facility] [address] [place] [address] documented in this encounter Visit Diagnoses Diagnosis Localized enlarged lymph nodes documented in this encounter Additional Health Concerns Assessment Noted Time A fall risk assessment has been complete d for the patient 12/20/2022 10:19 AM EST documented as of this encounter Care Teams Senior Application Programmer Relationship Specialty Start Date End Date Pcp, No [address] [place] [address] PCP - General Family Medicine 12/18/22 12/03/23 Joe George MD [address] [place] [address] PCP - General 12/04/23 [place] [address] [place] [address] 12/11/22 Bora Varner MD [address] [facility] [address] [phone] Surgeon Otolaryngology 12/11/22 documented as of this encounter
--- OUTSIDE RECORDS SUMMARY | 2025-09-09 10:50 | XMS_ITS | Referral Summary ---
Author Organization [employer] ([place], [place], [place], [place], [place]) Address [address] [place] [address] Care Team Providers Care District Customs Director Name Role Phone Neelam Hameed PA-C Unavailable [phone] Joe George MD Primary Care Provider [phone] Allergies No known active allergies Medications apixaban [...] 09/06/2021 Influenza High Dose Preservative Free IM ([id number] ) 07/31/2022,07/12/2020 Pneumococcal Conjugate (Prevnar) 13-Valent 07/12 Social History Tobacco Use Types Packs/Day Years [...] Date Mahad rded Speak language other than Khmer at home Not on file 10/31/2023 Want [...] 08/29/2023 10:12 AM EST Plan of Treatment Not on file Insurance [facility] MEDICARE PPO Care Teams District Customs Director Relationship Specialty Start Date End Date Joe George MD [address] [facility] [address] [place] [address] PCP - General Family Medicine 12/10/22 Neelam Hameed PAFrankC [address] [place] [address] Physician Special Needs Babysitter Oncology 12/09/22
--- OUTSIDE RECORDS SUMMARY | 2025-09-09 10:50 | XMS_ITS | Patient Health Record ---
Author Organization [facility] Address [address] [place] [id number] Care Team Providers Care Merchandise Flow Team Member Name Role Phone ArielJavier Primary Care Provider [phone] Evgeny Briseno Unavailable [phone] Allergies No Known Allergies Results Component Value [...] Normal Performing Lab: Notes/Report: Test performed by [facility] [address] [place] [address] , [address], [place] [address] Ramesh Reed MD, Ruffler CLIA: [id number] Sodium 144 135-145 mmol/L Potassium 4.8 3.5-5.3 [...] 163 Performing Lab: Notes/Report: Test performed by [facility] [address] [place] [address] , [address], [place] [address] Ramesh Reed MD, Ruffler CLIA: [id number] Cholesterol 204 <200 mg/dL Triglycerides 221 <150 [...] Interpretation:7.58 Performing Lab: Notes/Report: Test performed by [facility] [address] [place], [place] [address] [place] , [place] [address] Ramesh Reed MD, Ruffler CLIA: [id number] PSA 7.58 <4.00 ng/mL Please note this is an ultrasensitive PSA assay with a lower limit of detection of 0.014 ng/mL. This test is performed by the [employer] ECLIA methodology. Values obtained with different assay [...] Normal Performing Lab: Notes/Report: Test performed by [facility] [address] [place], [place] [address] [place] , [address], [place] [address] Ramesh Reed MD, Ruffler CLIA: [id number] TSH reflex to FT4 1.84 0.43-5.25 mU/L P-Microalbumin/Creatinine, R andom Urine Sample Reviewed date:11/22/2024 09:57:48 AM Interpretation:a/c 2424 Performing Lab: Notes/Report: Test performed by [facility], [address] , [address], [place] [address] Ramesh Reed MD, Ruffler CLIA: [id number] Albumin/Creatinine Ratio, Urine 2424 0-30 ug/mg Microalbumin, Urine, Random 312.7 Creatinine, Urine 129.0 H-CBC Reviewed date:01/04/2025 08:33:20 AM Interpretation: Performing [...] date:02/05/2025 09:54:01 PM Interpretation: Performing Lab: Notes/Report: Medications Medication SIG (Take, Route, Frequency, Duration) Notes Start Date End Date Status NovoLIN R FlexPen 100 UNIT/ML per sliding scale up to 50 units per day Injection four times a day as needed; Duration: 90 days E11.65 02/11/2025 Active NovoLOG Mix 70/30 FlexPen (70-30) 100 UNIT/ML INJECT 30 TO 36 UNITS Subcutaneous Three times a day Active Vascepa 1 GM 2 cap(s) orally 2 ti mes a day 10/04/2018 Not-Taking Ibuprofen 800 MG 1 tab(s) orally 3 ti mes a day prn (with food) 08/27/2022 Not-Taking PEN NEEDLE S/C 31GX5/16 1 PEN NEEDLE 2 TIMES A DAY OR DIRECTED; Duration: 30 DAYS 04/24/2018 Active traMADol HCl 50 MG 1-2 tab(s) orally ev araseli 6 hours prn 06/24/2022 Not-Taking Torsemide 10 MG 1 tab(s) orally once a day Not-Taking Dicyclomine HCl 10 MG 1 cap Orally three times a day as needed for cramping 02/15/2025 Active Metoprolol Succinate ER 100 MG 1/2 tab(s) orally once a day; Duration: 90 days Active traMADol HCl 50 MG 1 tab(s) orally ever y 6 hours prn 06/08/2021 Not-Taking levoFLOXacin 500 MG 1 tablet Orally Once a day 02/15/2025 Active Entresto 24-26 MG 1 cap(s) orally bid Active Pantoprazole Sodium 40 MG 1 tab(s) orally once a day; Duration: 30 day(s) 12/07/2021 Not-Taking Aspirin Adult Low Dose 81 MG 1 tab(s) orally once a day Active Jardiance 10 MG 1 tablet Orally Once a day; Duration: 30 day(s) Not-Taking FreeStyle Izzy 3 Plus Sensor - change sensor every 15 days; Duration: 90 days Active Eliquis 5 MG 1 tab(s) orally once daily Active FreeStyle Izzy 3 [place] - as directed E11.40 03/09/2025 Active Atorvastatin Calcium 40 MG 1 tab(s) orally once a day; Duration: 90 days Active Immunizations Vaccine Route Administration Date Status Comme nts xAdministration of injection IM Intramuscular 08/18/2017 Administered Tetanus Tdap-Adacel (over 7yrs) IM Intramuscular 10/14/2016 Administered Fluzone Quad (6months&older) Unknown 07/29/2018 Administered Fluzone High Dose (65yr and older) Unknown 08/02/2016 Administered Fluzone High Dose (65yr and older) IM Intramuscular 08/29/2019 Administered Fluzone High Dose (65yr and older) Unknown 07/31/2022 Administered Problems Problem Type SNOMED Code ICD Code Onset Dates Problem Status W/U Status Risk Notes Problem Coronary arteriosclerosis (22265402) 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) Active confirmed Problem Long-term current use of anticoagulant (001892209) 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) Active confirmed Problem Body mass index 30+ - obesity (248429997) BMI 30.0-30.9,adult (Z68.30) Active confirmed Problem Diabetic peripheral neuropathy associated with type 2 diabetes mellitus (4434294308490) Type 2 diabetes mellitus with diabetic neuropathy, unspecified (E11.40) Active confirmed Problem Ischemic cardiomyopathy (050577804) Ischemic cardiomyopathy (I25.5) Active confirmed Problem Long-term current use of insulin (623451553) 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.4) Active confirmed Problem Diabetes mellitus uncontrolled (730320364) Uncontrolled diabetes mellitus (E11.65) Active confirmed Problem Renal stone (97572516) Renal stone (N20.0) Active confirmed Problem Non-rheumatic mitral regurgitation (019433095) Non-rheumatic mitral regurgitation (I34.0) Active confirmed Problem Dyslipidemia (001853321) Dyslipidemia (E78.5) Active confirmed Problem Solitary nodule of lung (848427320) Lung nodule seen on imaging study (R91.1) Active confirmed Problem Gallstones (525485509) Gallstones (K80.20) Active confirmed Problem Osteomyelitis (61472375) Osteomyelitis of toe of right foot (M86.9) Active confirmed Problem Chronic atrial fibrillation (161990367) Chronic atrial fibrillation (I48.20) Active confirmed Problem Gastroesophageal reflux disease with esophagitis (disorder) (966433044) Gastroesophageal reflux disease with esophagitis without hemorrhage (K21.00) Active confirmed Problem History of malignant neoplasm of tonsil (78785960297353) 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) Active confirmed Vital Signs Heart Rate 48 /min 02/15/2025 Blood pressure diastolic 90 mm Hg 02/15/2025 Height 72.50 in 02/15/2025 Blood pressure systolic 150 mm Hg 02/15/2025 Weight 213.2 lbs 02/15/2025 BMI 28.51 kg/m2 02/15/2025 Encounters Encounter Location Date [facility] [id number] [facility] Evgeny Briseno Type 2 diabetes santino itus with diabetic neuropathy, unspecified E11.40 ; detention (current) use of insulin Z79.4 ; ASCVD (arteriosclerotic cardiovascular disease) I25.10 ; Chronic atrial fibrillation I48.20 ; Elevated PSA R97.20 ; Prostate cancer screening Z12.5 and Ischemic cardiomyopathy I25.[address] [id number] 12/28/2024 R Sammy Ariel Preop examination Z01.818 ; ASCVD (arteriosclerotic cardiovascular disease) I25.10 ; Type 2 diabetes mellitus with diabetic neuropathy, unspecified E11.40 ; Dyslipidemia E78.5 ; Chronic atrial fibrillation I48.20 and Hx of malignant neoplasm of tonsil Z85.818 [facility] [address] [id number] 01/11/2025 R Sammy Ariel Gallstones K80.[address] [place], [place] [id number] 02/15/2025 R Sammy Ariel Enterocolitis K52.9 and BMI 28.0-28.9,adult Z68.28 [facility] [address] [place], [place] [id number] 11/22/2024 Evgeny Renick [facility] [address] [place], [place] [id number] 01/03/2025 R Sammy Ariel [facility] [address] [place], [place] [id number] 01/08/2025 R Sammy Ariel ASCVD (arteriosclero tic cardiovascular disease) I25.10 [facility] [address] [place], [place] [id number] 01/14/2025 R Sammy Ariel [facility] [address] [place], [place] [id number] 02/11/2025 R Sammy Ariel Type 2 diabetes santino itus with diabetic neuropathy, unspecified E11.40 [facility] [address] [place], [place] [id number] 02/15/2025 R Sammy Ariel [facility] [address] [place], [place] [id number] 02/25/2025 R Sammy Ariel Type 2 diabetes santino itus with diabetic neuropathy, unspecified E11.40 [facility] [address] [place], [place] [id number] 02/25/2025 R Sammy Ariel [facility] [address] [place], [place] [id number] 03/09/2025 R Sammy Ariel [facility] [address] [place], [place] [id number] 06/14/2025 R Sammy Ariel Type 2 diabetes santino itus with diabetic neuropathy, unspecified E11.40 [facility] [address] [place], [place] [id number] 06/27/2025 R Sammy Ariel [facility] [address] [place], [place] [id number] 07/22/2025 R Sammy Ariel Assessments Encounter Date Diagnosis (ICD Code) Assessment Notes Treatment Notes Treatment Clinical Notes Section Notes 11/20/2024 Type 2 diabetes mellitus with diabetic neuropathy, unspecified (ICD-10 - E11.40) Not at goal 11/20/2024 detention (current) use of insulin (ICD-10 - Z79.4) 12/28/2024 ASCVD (arteriosclerotic cardiovascular disease) (ICD-10 - I25.10) 12/28/2024 Preop examination (ICD-10 - Z01.818) He is an acceptable medical risk for surgery from a primary care standpoint. See also [employer]ilogy clearance. 01/08/2025 ASCVD (arteriosclerotic cardiovascular disease) (ICD-10 - I25.10) 01/11/2025 Gallstones (ICD-10 - K80.20) Discussed low-fat diet. Keep scheduled appointment with Dr. Snyder for surgical consultation. 02/11/2025 Type 2 diabetes mellitus with diabetic neuropathy, unspecified (ICD-10 - E11.40) 02/15/2025 Enterocolitis (ICD-10 - K52.9) vs diverticulitis 02/15/2025 BMI 28.0-28.9,adult (ICD-10 - Z68.28) 02/25/2025 Type 2 diabetes mellitus with diabetic neuropathy, unspecified (ICD-10 - E11.40) 06/14/2025 Type 2 diabetes mellitus with diabetic neuropathy, unspecified (ICD-10 - E11.40) 12/28/2024 Type 2 diabetes mellitus with diabetic neuropathy, unspecified (ICD-10 - E11.40) 11/20/2024 ASCVD (arteriosclerotic cardiovascular disease) (ICD-10 - I25.10) 11/20/2024 Chronic atrial fibrillation (ICD-10 - I48.20) 12/28/2024 Dyslipidemia (ICD-10 - E78.5) 12/28/2024 Chronic atrial fibrillation (ICD-10 - I48.20) 11/20/2024 Elevated PSA (ICD-10 - R97.20) 12/28/2024 Hx of malignant neoplasm of tonsil (ICD-10 - Z85.818) 11/20/2024 Prostate cancer screening (ICD-10 - Z12.5) 11/20/2024 Ischemic cardiomyopathy (ICD-10 - I25.5) Plan Of Treatment No Information Insurance Providers Payer Name Payer Address Payer Phone Subscriber Number Group Number Insured Name Patient Relationship to Insured Coverage Start Date Coverage End Date MEDICARE PART B [address] [address] [place] [id number] Sergey Armstrong Self - patient is the insured [employer] [address] [address] [place] [address] [id number] Sergey Armstrong Self - patient is the insured Medical (General) History Medical History History ICD Code hypertension Diverticulosis by C-scope 11/20 Type 2 diabetes Severe CAD (LAD,RCA) by heart cath 7 - Dr. Duc Pacheco Chronic atrial fib Severe mitral regurgitation Diabetic neuropathy Hyperuricemia Squamous cell carcinoma of left tonsil First bite syndrome Elevated PSA - followed by Dr. [place] Surgical History Surgery Date(Month/Year) dislocated right shoulder repair- now goetz s pin abdomnial hernia repair heart cath 05/2017 Colonoscopy-[facility]-Dr. Rupesh Cortez 02/18/2014 Amputation of right great toe/ Dr. Ramsey 2020 Excision SCC left neck - Ton sillectomy, Lymph node, Partial Tongue resection 12/24/2022 G-tube 12/24/2022 Right ankle fusion/ Dr. 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 Treviño 06/12/2023 Subtalar joint arthrodesis/ Dr. Treviño 01/20/2025 Hospitalization History Reason Date(Month/Year) [facility]-heart failure 06/10/2017 Colonoscopy 2007,2012 [facility]abdominal pain 06/2011
--- OUTSIDE RECORDS SUMMARY | 2025-09-09 10:50 | XMS_ITS ---
Author Organization [facility] ([place], [place], [place], [place], [place]) Address [address] [place] [address] Care Team Providers Care Hair Stylist Name Role Phone Neelam Hameed PA-C Unavailable [phone] Joe George MD Primary Care Provider [phone] Active Problems Problem Noted Date Diagnosed Date [...] for rate control AC: holding apixiban BID Current Treatment and Therapy Plans [facility] - USE WITH INFUSIONS* Plan Start Date:01/06/2023 Linked Problems Head and neck cancer (HCC) Treatment Medications alteplase (CATHFLO) 2 mg in SW 2 mL syringe Past Treatment and Therapy Plans No past plan information found. 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
--- OUTSIDE RECORDS SUMMARY | 2025-09-09 10:50 | XMS_ITS | Encounter Summary ---
Author Organization [facility] Address [address] [place] [address] Care Team Providers Care Credit Controller Name Role Phone Ata Williamson MD Unavailable [phone] Bora Varner MD Unavailable [phone] Pcp, No Primary Care Provider Unavailabl e Joe George MD Primary Care Provider [phone] Encounter Details Date Type Department Care Team (Late st Contact Info) Description 12/03/2022 Orders Only External Location [address] [place] [address] Provider, External Social History Tobacco [...] [facility] [address] [facility], [address] [place] [address] Bora Varner MD [address] [facility] [address] [place] [phone] documented as of this encounter Procedures Procedure Name Priority Date/Time Associated Diagnosis Comments US OUTSIDE IMAGES 12/03/2022 2:00 PM EST documented in this encounter Results * US OUTSIDE IMAGES (12/03/2022 2:00 PM EST) Anatomical Region Laterality Modality Ultrasound 12/03/2022 2:00 PM EST us External Provider IMG US PROCEDURES Final Result documented in this encounter Visit Diagnoses Not on filedocumented in this encounter Care Teams Credit Controller Relationship Specialty Start Date End Date Pcp, No [address] [place] [address] PCP - General Family Medicine 12/18/22 12/03/23 Joe George MD [address] [place] [address] PCP - General 12/04/23 [place] [address] [place] [id number] 12/11/22 Bora Varner MD [address] [facility] [address] [place] [phone] Surgeon Otolaryngology 12/11/22 documented as of this encounter
--- OUTSIDE RECORDS SUMMARY | 2025-09-09 10:50 | XMS_ITS | Data Portability ---
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 Plan of Treatment Reminders Order Date Submit Date Provider Last Modified By Organization Details Last Modified Time Details Appointments None recorded. Lab None recorded. Referral None recorded. Procedures None recorded. Surgeries None recorded. Imaging None recorded. Medication Orders hydrocodone 7.5 mg-acetamin ophen 325 mg tablet 2022 023 [facility] 591, [address], [address], 12:47:41 Patient TargetsNo targets recorded. Patient Instructions Encounter Date Encounter Id Patient Instructions Last Modified By Organization Details Last Modified Time 11/22/2022 [id number] 1. Laryngoscopy flex performed in office today. Full risks, complications, and benefits of non-operative intervention have been thoroughly discussed. Understanding was expressed, informed consent given, and we will proceed with the discussed treatment plan. There were no questions for me at the end of the office visit. 2. CT scan of neck with contrast ordered in office today. 3. Ultrasound guided FNA of left cervical lymph node set up in office today. 4. Follow up with results of CT scan. [email or web address] Not available 11/22/2022 13:32:26 72-year-old male seen today with left facial, ear, and neck pain complaints. He has a very concerning left level 2 firm enlarged lymph node. While there is nothing obvious on his flexible laryngoscopy I am concerned about some firmness in his left base of tongue area. This is all very concerning for malignancy. I set him up for a contrasted neck CT scan which is consistent with a left base of tongue mass as well as pathologically enlarged left level 2 lymph node. Spoke with patient with CT results - will plan to set up for left neck US FNA with cell block and see back with results. If is something like SCCa would likely be amenable to a TORS BOT rsxn and ND though obviously we need a dx first. [email or web address] Not available 11/24/2022 13:02:00 12/06/2022 [id number] 1. PET scan ordered in office today. 2. Discussed treatment for squamous cell carcinoma pending PET scan results. Surgical vs non surgical options (removal of tongue mass and radiation vs chemotherapy and radiation). 3. Rx- Hydrocodone. 4. Follow up pending PET scan results. [email or web address] Not available 12/06/2022 12:03:29 Telehealth follow-up visit. 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 Given this and his neck CT almost certainly has metastatic from a left base of tongue lesion. We had a long discussion today regarding potential treatment options. This would include robotic base of tongue resection with left neck dissection likely followed by radiation and potentially chemotherapy versus treating upfront with radiation and chemotherapy. His daughter works with some of the oncologists at [place]. We will place referrals for him to see both rad onc and heme-onc over there. They also would like to discuss the University potential transoral robotic surgery resection. They have requested [facility] so we will place referral as well. We will also work to set up a PET/CT to evaluate for any distant disease. I will plan to call him with these results. [email or web address] Not available 12/06/2022 12:47:17 Reason for Referral None Reported. Results Created Date Observation Date Name Description Value Unit Range Abnormal Flag Note LastModifiedBy Organization Detail LastModifiedTime 12/03/19 23 12/03/2022 CYTOL OGY cytology SEE BELOW Depar tment of Patho logy Medic al Cytol ogy Repor t NAME: PRASANNA BEARD PATH. :FC-2 3-000 60 Copie s to: SHERYL ENDRA CHOPR A SOURC E OF SPECI MEN: FINE NEEDL E ASPIR ATE, LEFT NECK MASS LYMPH NODE/ US-DI RECTE D Volum e: 5 mL Color : Fitzpatrick Fixed : Y Blood y: N Clott ed: N Clear : N Other : FIXED IN RPMI ONE SEGUNDO DE SLIDE IN DQ ONE SEGUNDO DE SLIDE IN SPRAY FIXAT ANNETTE ONE CLOT FOR CELLB LOCK 2 PASSE S PERFO RMED CLINI JAYY INFOR MATIO N: R59.0 SIZE AND LOCAT ION OF LESIO N: LEFT 2.8 X 3 X 2.4 cm DURAT ION OF LESIO N: ABOUT 4-5 WEEKS PREVI OUS SIMIL AR LESIO NS: NONE OTHER PRIMA RY TUMOR S: LEFT TONSI LLAR/ TONGU E BASE LESIO N X-RAY RESUL TS: NODUL E SPREA D FROM LEFT TONSI LLAR/ TONGU E BASE LESIO N MEDIC ATION : SEE ATHEN A NET PREVI OUS HISTO RY: NO MALIG NANT HX, NON SMOKE R FAMIL Y HISTO RY: NO MALIG NANT HX APPOI NTMEN T WITH DR. AKIN BOLANOSR AT 11:30 Diagn osis: Left neck mass, lymph node, ultra sound direc leland fine needl e aspir ate, ThinP rep, smear s and cell block : Posit annette for malig sudeep . Squam ous cell carci noma. Immun ostai ns: HMW-C K: POSIT ANNETTE P63: POSIT ANNETTE P16: Parti ally posit annette, insuf ficie nt to evalu ate for HPV-a ssoci ated tumor Note: Only a few dozen cells are prese nt in the cell block . This is insuf ficie nt for evalu ation of P16 for HPV. Immed iate Evalu ation : #1: Adequ ate. Reque st addit ional mater ial for immun ohist ochem ical stain s. DC GRACE MORENO MD Keyla d Out Date: 12/05 , 09:31 Page 1 of 1 Not Available [facility] [address] [place] [address], [place], [address], 12/05/2022 09:32:18 11/23/19 23 11/22/2022 CT, neck, soft tissu e, w/ contr ast [facility] [address] [place] [address] Patien t Name: CUCA WYNN ON Patien t : [birth year] Patien t Orderi ng Provid er: GRACE CHAVEZ CHEN EXAM DATE: 2022 EXAM: CT SOFT TISSUE NECK WITH CONTRA ST CLINIC AL INFORM ATION: Left neck mass. TECHNI QUE: A baseli ne serum creati nine with eGFR was obtain ed prior to inject ion of contra st medium due to the patien ts risk factor s for VENICE. Calcul ated eGFR at time of exam was GFR [address] images of the neck were obtain ed after inject ion of 100 mL Omnipa que 350 (1 x 100 mL bottle of [facility] [address]-9 1). None was wasted and discar ded. COMPAR BARB: None. FINDIN GS: LOWER CRANIU M: No obviou s intrac ranial abnorm ality. Visual ized portio ns of the orbits and sinuse s are normal . There is deviat ion of nasal septum . SUPRAH YOID REGION : Nasoph arynx, is normal . There is sugges tion of an ulcera ting left tonsil lar/to ngue base lesion . Bilate ral paroti d and subman dibula r saliva ry glands are normal . There is a 2.3 x 1.7 cm enlarg ed level 2 left cervic al lymph node. Additi onal subcen timete r scatte red lymph nodes are seen bilate rally. INFRAH YOID REGION : Hypoph arynx, pirifo rm sinuse s and vocal cords are normal . Thyroi d gland is normal . No airway abnorm ality. Small bilate ral scatte red lymph nodes are seen UPPER CHEST: Lung apices are normal . No obviou s medias tinal lympha denopa thy is seen. Vessel s appear normal . CERVIC AL SPINE: Mild degene rative change s are noted. IMPRES AUSTIN: 1. Sugges tion of an ulcera ting left tonsil lar/to ngue base lesion consis tent with malign aundrea. 2. Enlarg ed left level 2 cervic al lympha denopa thy. Consis tent with les spread . 3. Smalle r bilate ral scatte red multil evel lymph nodes. Doubtf ul clinic al signif icance . 4. No eviden ce of neopla stic spread is seen elsewh ere in the neck or upper chest. NOTE: There are annota leland farley images with this study on PACS highli ghting the abnorm ality. Interp reted By: Greg Davis MD Electr onical ly Signed By: Greg Davis MD on 023 12:35 PM [email or web address] [facility] [address], [address], 11/25/2022 16:32:37 12/03/19 23 12/03/2022 US neck nodul e fna only [address] [address] Patisloan t Name: BORA WYNN ON Patisloan t : [birth year] Patien t Orderi ng Provid er: GRACE CHAVEZ CHEN EXAM DATE: 2022 EXAM: US NECK NODULE FNA ONLY SITE: Level 2 cervic al lymph node on the left. CLINIC AL INDICA TION: Size and sonogr aphic appear ance of the abnorm ality. OPERAT OR: Greg Davis M.D. MRCP., FRCR. TECHNI QUE AND FINDIN GS: Prelim inary sonogr aphic examin ation showed the left level 2 cervic al lymph node.. Inform ed mary pedroza t was obtain ed. Under sonogr aphic guidan ce, asepti c techni que and local anesth etic, 2 passes were made with 27-gau ge and 22-gau ge hypode rmic needle s throug h this area. IMMEDI ATE COMPLI CATION S: None. DISPOS AL AND ADEQUA CY OF SPECIM EN: Specim ens were given to the Cytopa tholog ist on site. IMPRES AUSTIN: Uneven tful left cervic al lymph node FNA. Interp reted By: Greg Davis MD Electr onical ly Signed By: Greg Davis MD on 023 5:04 PM [email or web address] [facility] [address] [place] [address], [phone], 12/05/2022 08:19:17 12/03/19 23 12/03/2022 US, neck [facility] [address] [place] [address], [place] [address] Patien t Name: BORA WYNN ON Patien t : [birth year] Patien t Orderi ng Provid er: GRACE CHAVEZ CHEN EXAM DATE: 2022 EXAM: US NECK CLINIC AL INFORM ATION: Left cervic al lympha denopa thy. IMAGES PROVID ED: Multip le sonogr aphic images of the left neck. COMPAR BARB: None. FINDIN GS AND IMPRES AUSTIN: At level 2 in the left neck, there is a 2.8 x 3 x 2.4 cm solid lymph node. In additi on, there is an adjace nt lymph node measur ing 1.8 x 1.4 x 0.9 cm. Appear ance is of malign aundrea. The larges t lymph node was subjec leland to US guided FNA. Interp reted By: Greg Davis MD Electr onical ly Signed By: Greg Davis MD on 023 5:06 PM [email or web address] [facility] [address], [address], 12/05/2022 08:19:17 12/12/19 23 12/11/2022 PET-C T, skull base to mid-t high scan [facility] [address] [place] [address] [facility] [address] Patien t Name: BORA WYNN ON Patien t : [birth year] Patien t Orderi ng Provid er: GRACE CHAVEZ CHEN EXAM DATE: 2022 EXAM: PET-CT TUMOR SKULL BASE-M ID THIGH INT ST CLINIC AL INFORM ATION: Head and Neck Cancer - Initia l PROCED URE: Baseli ne blood glucos e level was 137 mg/dL. 14.1 mCi F-18 FDG ([facility] [id number]-3 0) was inject ed IV. After an uptake time of 42 minute s, skull base to midthi gh PET imagin g was perfor med. This was follow ed by a low dose attenu ation correc tion/a natomi c locali zation CT from lower craniu m throug h the midthi gh levels withou t IV or oral contra st. COMPAR BARB: CT neck 023 FINDIN GS ON PET WITH CT CORREL ATION: HEAD AND NECK: Follow ing areas of abnorm al hyperm etabol ism are seen. 1. Ulcera ting lesion in the left tonsil /left lung base. SUV = 4.7. 2. Left level 2 lymph node. SUV = 8. UPPER LIMBS: No abnorm al areas of F-18 FDG uptake are seen. CHEST: Normal uptake of F-18 FDG is noted in the myocar dium. No abnorm al areas of F-18 FDG uptake are seen. ABDOME N: Normal uptake of F-18 FDG is noted in the liver, spleen , bowel and kidney s along with excret ion into the ureter s. No abnorm al areas of F-18 FDG uptake are seen. PELVIS : Normal excret ory collec tion of F-18 FDG is noted in the urinar y bladde r. No abnorm al areas of F-18 FDG uptake are seen. LOWER LIMBS: No abnorm al areas of F-18 FDG uptake are seen. FINDIN GS ON CT WITH PET CORREL ATION: Interp retati on is limite d due to the examin ation being an attenu ation correc tion/a natomi c locali zation CT. NECK: No intrac ranial abnorm ality is seen. Orbits and sinuse s are clear. Previo usly seen ulcera ting lesion in the left tonsil /left lung base is noted again and is signif icantl y hyperm etabol ic. Previo usly seen level 2 cervic al lymph node is noted again. It is signif icantl y hyperm etabol ic. No lympha denopa thy is seen elsewh ere. CHEST: AIRWAY S AND LUNGS: Trache a, princi pal bronch i and major bronch ial branch es are patent and normal . Calcif ied granul omata are seen in both lungs. MEDIAS TINUM: Limite d evalua tion due to absenc e of IV contra st. No medias tinal lympha denopa thy. Aorta shows athero sclero tic calcif icatio ns with normal calibe r. SVC, pulmon idris arteri es, pulmon idris veins and their major branch es and tribut beena are normal . Cazares ry artery calcif icatio ns are seen. PLEURA AND CHEST WALL: No pleura l effusi on or mass. No chest wall abnorm ality. ABDOME N: UPPER ABDOMI NAL ORGANS : Liver, gallbl adder, spleen , pancre as, adrena ls and both kidney s are normal . BOWEL AND MESENT JORY: Stomac h, small bowel and colon are normal . No mesent aditi lympha denopa thy or perito antonia free fluid. RETROP ERITON EUM:Li mited evalua tion due to absenc e of IV contra st. Aorta shows athero sclero tic calcif icatio ns with normal aortic calibe r. IVC and branch es are normal . No retrop eriton eal lympha denopa thy. BODY WALL AND MUSCUL OSKELE KATT STRUCT URES: Degene rative change s of the lumbar spine are noted. Anteri or abdomi nal wall is normal . PELVIS : PELVIC CAVITY : Sigmoi d divert iculos is is noted withou t eviden ce of divert iculit is. Urinar y bladde r is normal . Prosta te gland is normal in size. No pelvic or inguin al lympha denopa thy, mass or fluid. MUSCUL OSKELE KATT STRUCT URES: Normal . COMBIN ED IMPRES AUSTIN: 1. Hyperm etabol ic left tonsil /left lung base lesion . 2. Hyperm etabol ic left level 2 lympha denopa thy. 3. No eviden ce of neopla stic spread is seen elsewh ere in the neck, chest, abdome n or pelvis . Interp reted By: Greg Davis MD Electr onical ly Signed By: Greg Davis MD on 12/12/19 9:21 AM [email or web address] [facility] [address] [place], [address], 12/13/2022 08:22:31 Result Notes Documentation Provider Name and Address Organization Details Recorded Time Ct, Neck, Soft Tissue, W/ Contrast : [address] [address] Patient Name: CUCA ARMSTRONG Patient : 1950 Patient Ordering Provider: GRACE NAGEL EXAM DATE: 11/22/2022 EXAM: CT SOFT TISSUE NECK WITH CONTRAST CLINICAL INFORMATION: Left neck mass. TECHNIQUE: A baseline serum creatinine with eGFR was obtained prior to injection of contrast medium due to the patients risk factors for VEINCE. Calculated eGFR at time of exam was GFR [address] images of the neck were obtained after injection of 100 mL Omnipaque 350 (1 x 100 mL bottle of [facility] [address]-51). None was wasted and discarded. COMPARISON: None. FINDINGS: LOWER CRANIUM: No obvious intracranial abnormality. Visualized portions of the orbits and sinuses are normal. There is deviation of nasal septum. SUPRAHYOID REGION: Nasopharynx, is normal. There is suggestion of an ulcerating left tonsillar/tongue base lesion. Bilateral parotid and submandibular salivary glands are normal. There is a 2.3 x 1.7 cm enlarged level 2 left cervical lymph node. Additional subcentimeter scattered lymph nodes are seen bilaterally. INFRAHYOID REGION: Hypopharynx, piriform sinuses and vocal cords are normal. Thyroid gland is normal. No airway abnormality. Small bilateral scattered lymph nodes are seen UPPER CHEST: Lung apices are normal. No obvious mediastinal lymphadenopathy is seen. Vessels appear normal. CERVICAL SPINE: Mild degenerative changes are noted. IMPRESSION: 1. Suggestion of an ulcerating left tonsillar/tongue base lesion consistent with malignancy. 2. Enlarged left level 2 cervical lymphadenopathy. Consistent with les spread. 3. Smaller bilateral scattered multilevel lymph nodes. Doubtful clinical significance. 4. No evidence of neoplastic spread is seen elsewhere in the neck or upper chest. NOTE: There are annotated farley images with this study on PACS highlighting the abnormality. Interpreted By: Dean Davis MD Yaneth De Santiago [facility] 11/25/2022 16:32:37 Pet-ct, Skull Base To Mid-thigh Scan : [address] [place] [address] Patient Name: BORA ARMSTRONG Patient : 1950 Patient Ordering Provider: GRACE NAGEL EXAM DATE: 12/11/2022 EXAM: PET-CT TUMOR SKULL BASE-MID THIGH INT ST CLINICAL INFORMATION: Head and Neck Cancer - Initial PROCEDURE: Baseline blood glucose level was 137 mg/dL. 14.1 mCi F-18 FDG ([facility] [address]-48) was injected IV. After an uptake time of 42 minutes, skull base to midthigh PET imaging was performed. This was followed by a low dose attenuation correction/anatomic localization CT from lower cranium through the midthigh levels without IV or oral contrast. COMPARISON: CT neck 11/22/2022 FINDINGS ON PET WITH CT CORRELATION: HEAD AND NECK: Following areas of abnormal hypermetabolism are seen. 1. Ulcerating lesion in the left tonsil/left lung base. SUV = 4.7. 2. Left level 2 lymph node. SUV = 8. UPPER LIMBS: No abnormal areas of F-18 FDG uptake are seen. CHEST: Normal uptake of F-18 FDG is noted in the myocardium. No abnormal areas of F-18 FDG uptake are seen. ABDOMEN: Normal uptake of F-18 FDG is noted in the liver, spleen, bowel and kidneys along with excretion into the ureters. No abnormal areas of F-18 FDG uptake are seen. PELVIS: Normal excretory collection of F-18 FDG is noted in the urinary bladder. No abnormal areas of F-18 FDG uptake are seen. LOWER LIMBS: No abnormal areas of F-18 FDG uptake are seen. FINDINGS ON CT WITH PET CORRELATION: Interpretation is limited due to the examination being an attenuation correction/anatomic localization CT. NECK: No intracranial abnormality is seen. Orbits and sinuses are clear. Previously seen ulcerating lesion in the left tonsil/left lung base is noted again and is significantly hypermetabolic. Previously seen level 2 cervical lymph node is noted again. It is significantly hypermetabolic. No lymphadenopathy is seen elsewhere. CHEST: AIRWAYS AND LUNGS: Trachea, principal bronchi and major bronchial branches are patent and normal. Calcified granulomata are seen in both lungs. MEDIASTINUM: Limited evaluation due to absence of IV contrast. No mediastinal lymphadenopathy. Aorta shows atherosclerotic calcifications with normal caliber. SVC, pulmonary arteries, pulmonary veins and their major branches and tributaries are normal. Coronary artery calcifications are seen. PLEURA AND CHEST WALL: No pleural effusion or mass. No chest wall abnormality. ABDOMEN: UPPER ABDOMINAL ORGANS: Liver, gallbladder, spleen, pancreas, adrenals and both kidneys are normal. BOWEL AND MESENTERY: Stomach, small bowel and colon are normal. No mesenteric lymphadenopathy or peritoneal free fluid. RETROPERITONEUM:Limited evaluation due to absence of IV contrast. Aorta shows atherosclerotic calcifications with normal aortic caliber. IVC and branches are normal. No retroperitoneal lymphadenopathy. BODY WALL AND MUSCULOSKELETAL STRUCTURES: Degenerative changes of the lumbar spine are noted. Anterior abdominal wall is normal. PELVIS: PELVIC CAVITY: Sigmoid diverticulosis is noted without evidence of diverticulitis. Urinary bladder is normal. Prostate gland is normal in size. No pelvic or inguinal lymphadenopathy, mass or fluid. MUSCULOSKELETAL STRUCTURES: Normal. COMBINED IMPRESSION: 1. Hypermetabolic left tonsil/left lung base lesion. 2. Hypermetabolic left level 2 lymphadenopathy. 3. No evidence of neoplastic spread is seen elsewhere in the neck, chest, abdomen or pelvis. Interpreted By: Dean Davis MD E NAGEL MD [address] [place] [address], [id number] 12/13/2022 08:22:31 Procedures Surgical History Date Name Laterality Status Provider Name and Address Organization Details Recorded Time 11/22/19 23 Laryngoscopy Flex completed Natividad Hernandez [facility] 11/22/2022 13:30:20 Imaging Results None recorded. Procedure Notes None recorded. Medical Equipment None Reported. Allergies Allergen ID Allergen Name Allergen Category Reaction Reaction Severity Criticality Documentation Date Start Date Code Code System Note Provider Name and Address Organization Details Recorded Time 788436 NovoLog Mix medicatio n Not available Not available Not available 11/22/2022 96487 41 [facility] 12:[facility]07 Medications Name Sig Start Date Stop Date Status Note LastModified by Organization Details LastModified Time atorvastati n 40 mg tablet TAKE 1 TABLET BY MOUTH EVERY DAY active Not Available Not Available No t Available ibuprofen 800 mg tablet TAKE 1 TABLET BY MOUTH THREE TIMES DAILY WITH FOOD NEEDED active Not Available Not Available No t Available Lidocaine Viscous 2 % mucosal solution SWISH AND SPIT UP TO 6 TIMES A DAY MIX WITH EQUAL PARTS BENADRYL AND MAALOX active Not Available Not Available No t Available ampicillin 500 mg capsule TAKE 1 CAPSULE BY MOUTH TWICE DAILY FOR 10 DAYS FOR INFECTION 11/22 completed Not Available Not Available Not Available minocycline 100 mg capsule TAKE 1 CAPSULE BY MOUTH TWICE DAILY FOR 14 DAYS FOR INFECTION active Not Available Not Available No t Available prednisone 20 mg tablet TAKE 1 TABLET BY MOUTH TWICE DAILY FOR 5 DAYS active Not Available Not Available No t Available metoprolol succinate ER 100 mg tablet,exte nded release 24 hr TAKE 1 TABLET BY MOUTH ONCE DAILY active Not Available Not Available No t Available penicillin V potassium 500 mg tablet TAKE 1 TABLET BY MOUTH TWICE DAILY 11/22 completed Not Available Not Available Not Available sulfamethox azole 800 mg-trimetho prim 160 mg tablet TAKE 1 TABLET BY MOUTH TWICE DAILY active Not Available Not Available No t Available tramadol 50 mg tablet TAKE 1 TO 2 TABLETS BY MOUTH EVERY 6 HOURS NEEDED active Not Available Not Available No t Available hydrocodone 7.5 mg-acetamin ophen 325 mg tablet Take 1 tablet every 4 hours by oral route for 7 days. 2022 active Not Available Not Available Not Avai lable pantoprazol e 40 mg tablet,damion yed release TAKE 1 TABLET BY MOUTH ONCE DAILY active Not Available Not Available No t Available levofloxaci n 750 mg tablet TAKE 1 TABLET BY MOUTH ONCE DAILY FOR 14 DAYS FOR INFECTION active Not Available Not Available No t Available Novolog Mix 70-30 FlexPen U-100 Insulin 100 unit/mL subcutaneou s pen INJECT 30 UNITS UNDER THE SKIN 3 TIMES DAILY active Not Available Not Available No t Available eplerenone 25 mg tablet TAKE 1 TABLET BY MOUTH DAILY active Not Available Not Available No t Available BD Ultra-Fine Short Pen Needle 31 gauge x 5/16 USE 1 PEN NEEDLE SUBCUTANE OUSLY TWICE DAILY OR DIRECTED active Not Available Not Available No t Available Contour Next Test Strips USE 1 STRIP TO CHECK GLUCOSE ONCE DAILY active Not Available Not Available No t Available Vascepa 1 gram capsule TAKE 2 CAPSULES BY MOUTH TWICE DAILY WITH MEALS active Not Available Not Available No t Available Eliquis 5 mg tablet TAKE 1 TABLET BY MOUTH EVERY 12 HOURS active Not Available Not Available No t Available Jardiance 10 mg tablet TAKE 1 TABLET BY MOUTH ONCE DAILY active Not Available Not Available No t Available Entresto 24 mg-26 mg tablet TAKE 1 TABLET BY MOUTH TWICE DAILY active Not Available Not Available No t Available Vitals Date Recorded Body weight Body temperature Body mass index (BMI) Body height Heart rate Systolic And Diastolic Provider Name and Address Organization Details Last Updated DateTime 3 61846.1 4 g 97.3 [degF] 28 kg/m2 187.96 cm 87 /min 160/94 mm[Hg] Henny Chadwick [facility] 3 13:02:23 Date Recorded Body height Body mass index (BMI) Body weight Provider Name and Address Organization Details Last Updated DateTime 12/06/2022 187.96 cm 27 kg/m2 14956.4 g Jeaneth Martinez [facility] 12/06/2022 11:23:35 Social History Question Answer Notes LastModified by Organizat ion Details LastModified Time Tobacco Smoking Status Never Smoker Henny Recinosley [facility] 11/22/2022 12:54:56 Have You Recently Traveled Abroad? No [email or web address] Information not available 11/22/2022 Sex: Unknown Functional Status Question Answer Note LastModified by Organizat ion Details LastModified Time What is your level of alcohol consumption? Occasional Information not available 11/22/2022 Mental Status None recorded. Family History Relationship Description Onset Age of this Age Resolved Age Notes LastModified by Organization Details LastModified Time Brother Hypertensive disorder [email or web address] Not available 11/22 12:56:41 Father Hypertensive disorder Not available 11/22 12:56:41 Mother Diabetes mellitus Not available 11/22 12:56:58 Medical History Condition Response Diabetes Y Anesthesia Complications N Bleeding Disorder N Cancer Y Hypertension N Past Encounters Encounter ID Performer Location Encounter Start Date Encounter Closed Date Diagnosis/Indication Diagnosis SNOMED-CT Code Diagnosis ICD10 Code Diagnosis IMO Codes Diagnosis Note [id number] [facility] [place] [address] 01/13/2017 19:46:33 01/13/2017 19:46:33 [id number] GRACE NAGEL MD [place] [facility] [address] [place] [address] 11/22/2022 12:15:14 11/22/2022 14:24:41 Deviated nasal septum 931394231 J34.2 left Hypertroph y of tonsils 53553553 J35.1 1+ Cervical lymphadenopathy 251562425 R59.0 left firm level 2 swollen lymph node. Mass of tongue 140619578 R22.0 [id number] GRACE NAGEL MD [place] [facility] [address] [place] [address] 12/06/2022 11:22:15 12/06/2022 12:32:07 Deviated nasal septum 508333072 J34.2 left Hypertroph y of tonsils 27216592 J35.1 1+ Cervical lymphadenopathy 433274218 R59.0 left firm level 2 swollen lymph node. 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 [id number] 100 C80.1 Health Concerns Section Related Observation LastModified by Organization Detai ls LastModified Time None Recorded Concern Status LastModified by Organization Details LastModified Time None Recorded Advance Directives Directive None Recorded Payers Insurance Date Sequence Insurance Name Policy Number Policy Guerra Covered Member ID Guerra Member ID Guarantor Name 12/12/2022 1 [employer] (MEDICARE REPLACEMENT/ ADVANTAGE - PPO) Bora Caro Nathaniel [id number] Bora Caro Nathaniel 11/22/2022 1 *SELF PAY* Thais Armstrong Notes Date Note Type Note Provider Name and Address Organization Details Recorded Time 11/22/2022 text/html Cuca is a 72 year old male who comes in today for consultation at the request of Dr. Archana Perez for an evaluation of a sore throat and headaches. Cuca states that he has had left sided ear pain, pressure headaches, and a sore throat for three weeks now. He has taken Penicillin which has not helped. He denies any hearing change in his left ear. He denies using any nasal sprays. He mentions that he went to the dentist last week and had an infection pocket in his back left molar. GRACE NAGEL MD [address] [place] [address], [phone], [facility] 11/24/2022 13:02:17 12/06/2022 text/html Cuca is 72 year old male who visits us in office today to follow up on the results of his CT scan and FNA w/ultrasound. Results of CT scan show suggestion of an ulcerating left tonsillar/tongue base lesionconsistent with malignancy, enlarged left level 2 cervical lymphadenopathy. Consistent with les spread, smaller bilateral scattered multilevel lymph nodes. Doubtful clinical significance. No evidence of neoplastic spread is seen elsewhere in the neck orupper chest. Medical cytology showed left neck mass, lymph node, ultrasound directed fine needle aspirate, ThinPrep, smears and cell block: Positive for malignancy. Squamous cell carcinoma. Visit today is being conducted via telehealth using both audio/video. The patient confirms that he/she is physically located in [place] at the time of this visit. Patient expressed understanding of audio/video telehealth as a billable visit and has consented. Patient also expressed understanding that not every condition can be appropriately addressed via telehealth and that this telehealth visit may need to be converted to an in-person visit or may even result in a recommendation to go to the E.R. at the provider s discretion in order to provide the best possible care. GRACE NAGEL MD [address] [place] [address], [phone], [facility] 12/06/2022 12:47:38
== END 2025-09-09 23:59 | disposition home or self-care (01) ==
LOC: RAD 10:47
PROVIDERS: PCP Family Medicine; Visit Provider Podiatrist
DX: S93.135A Subluxation of interphalangeal joint of left lesser toe(s), initial encounter (principal); X58.XXXA Exposure to other specified factors, initial encounter; R93.6 Abnormal findings on diagnostic imaging of limbs; Z89.412 Acquired absence of left great toe
CPT/HCPCS: 73630

== ENCOUNTER 2025-09-21 10:26 | Outpatient (CLI) | payer MEDICARE, OTHER, SELFPAY ==
[2025-09-21 11:02] LABS: Hematocrit 48.6 % (42.0-52.0); Hemoglobin 15.6 g/dL (14.1-18.0); Immature Granulocytes % 0.3 %; Mean Corpuscular HGB Conc 32.1 g/dL (31.8-35.4); Mean Corpuscular Hemoglobin 27.0 pg (27.0-31.2); Mean Corpuscular Volume 84.2 fl (80-94); Nucleated Red Blood Cells % 0 %; Platelet Count 272 K/mm3 (142-424); Red Blood Count 5.77 M/mm3 (4.60-6.20); Red Cell Distribution Width-SD 45.4 fL; White Blood Count 10.0 K/mm3 (4.8-10.8)
[2025-09-21 11:33] LABS: Alanine Aminotransferase 9 U/L (12-78); Albumin Level 4.0 g/dl (3.5-5.0); Albumin/Globulin Ratio 1.3 (1.1-1.8); Alkaline Phosphatase 110 U/L (38-126); Anion Gap 12.3 mEq/L (5-15); Aspartate Amino Transferase 23 U/L (17-59); Bilirubin,Total 0.7 mg/dl (0.2-1.3); Blood Urea Nitrogen 24 mg/dl (9-20); Calcium 9.5 mg/dl (8.4-10.2); Carbon Dioxide 27 mmol/L (22.0-30.0); Chloride 104 mmol/L (98-107); Creatinine,Serum 1.20 mg/dl (0.66-1.25); Estimated Glomerular Filt Rate 59 ml/min (>60); GFR (African American) 72 ML/MIN (>60); Globulin 3.0 g/dL (1.3-3.2); Glucose 239 mg/dl (74-100); Potassium 4.3 mmoL/L (3.5-5.1); Sodium 139 mmol/L (136-145); Total Protein,Serum 7.0 g/dl (6.3-8.2)
[2025-09-21 11:41] LABS: C-Reactive Protein 6.8 mg/L (0-4)
[2025-09-21 12:57] LABS: Hemoglobin A1C 7.4 % (4.0-6.0)
== END 2025-09-21 23:59 | disposition home or self-care (01) ==
LOC: LAB 10:27
PROVIDERS: PCP Family Medicine; Visit Provider Podiatrist
DX: M79.89 Other specified soft tissue disorders (principal); M86.9 Osteomyelitis, unspecified; M79.672 Pain in left foot; E11.9 Type 2 diabetes mellitus without complications
CPT/HCPCS: 36415; 80053; 83036; 85025; 85651; 86140

== ENCOUNTER 2025-09-23 07:27 | Outpatient (CLI) | payer MEDICARE, OTHER, SELFPAY ==
--- OUTSIDE RECORDS SUMMARY | 2024-06-22 09:15 | XMS_ITS ---
Author Organization [facility] Address [address] [place] [id number] Care Team Providers Care Residential Service Technician Name Role Phone Javier George Primary Care Provider [phone] Allergies No Known Allergies Results Component Value Reference Range Notes Glycohemoglobin A1c (in hous e) Reviewed date:06/24/2024 08:45:10 AM Interpretation:6.8% Performing Lab: Notes/Report: 6.8% glycohemoglobin 6.8% 5 - 6.5 % P-Comprehensive Metabolic Pa rocky (CMP) Reviewed date:06/24/2024 08:45:10 AM Interpretation:gluc 202, bun 25 Performing Lab: Notes/Report: CLIA: [id number] Ramesh Reed MD, Patrol Man [address] [place] [address] , [address], [place] [address] Test performed by [facility] Sodium 139 135-145 mmol/L Potassium 4.6 3.5-5.3 mmol/L Chloride 104 97-108 mmol/L CO2 25 22-32 mmol/L Glucose 202 65-99 mg/dL BUN 25 8-23 mg/dL Creatinine 1.15 0.70-1.30 mg/dL Calcium 9.7 8.6-10.4 mg/dL eGFR by Creatinine 67 >59 mL/min/1.73m2 Protein 6.6 6.0-8.3 g/dL Albumin 3.7 3.5-5.3 g/dL Alkaline Phosphatase 98 40-129 IU/L ALT (SGPT) 6 <5-55 IU/L AST (SGOT) 14 <5-46 IU/L Bilirubin, Total 0.4 <0.2-1.2 mg/dL A/G Ratio 1.3 1.1-2.5 P-Lipid Panel Reviewed date:06/24/2024 08:45:10 AM Interpretation:trigs 328, hdl 31, chol/hdl 5.06 Performing Lab: Notes/Report: Test performed by [facility], [place] [address] [facility] , [address], [place] [address] Ramesh Reed MD, Patrol Man CLIA: [id number] Cholesterol 157 <200 mg/dL Triglycerides 328 <150 mg/dL HDL Cholesterol 31 >39 mg/dL Cholesterol / HDL Ratio 5.06 0.00-4.99 Ratio Non-HDL Cholesterol 126 <130 mg/dL LDL Cholesterol (Calculation) 60 <130 mg/dL LDL Cholesterol Levels* Less than 100 mg/dL Optimal 100 to 129 mg/dL Near Optimal/ Above Optimal 130 to 159 mg/dL Borderline High 160 to 189 mg/dL High 190 mg/dL and above Very High * Categories as recommended by the 2004 ATPIII guidelines LDL/HDL Ratio 1.9 <3.3 Ratio LDL Cholesterol Patient History Test Date: 06/22/2024 LDL Results: 60 Units: mg/dL % Change: - P-PSA Reviewed date:06/24/2024 08:45:10 AM Interpretation:5.94 Performing Lab: Notes/Report: Test performed by [facility], [employer] [address] [place] [address] , [address], [place] [address] Ramesh Reed MD, Patrol Man CLIA: [id number] PSA 5.94 <4.00 ng/mL Please note this is an ultrasensitive PSA assay with a lower limit of detection of 0.014 ng/mL. This test is performed by the Dinesh ECLIA methodology. Values obtained with different assay methods or kits cannot be directly compared. REASON FOR VISIT form to fill out diabetic shoes Medications Medication SIG (Take, Route, Frequency, Duration) Notes Start Date End Date Status Contour Next Test - test bg fingerstick twice daily 01/03/2023 Unknown Contour Next Test - test bg fingerstick once daily E11.40 Unknown Metoprolol Succinate ER 100 MG 1/2 tab(s) orally once a day; Duration: 30 days Active traMADol HCl 50 MG 1 tab(s) orally ever y 6 hours prn 06/08/2021 Not-Taking Pantoprazole Sodium 40 MG 1 tab(s) orally once a day; Duration: 30 day(s) 12/07/2021 Not-Taking Torsemide 10 MG 1 tab(s) orally once a day Not-Taking Aspirin Adult Low Dose 81 MG 1 tab(s) orally once a day Not-Taking Ibuprofen 800 MG 1 tab(s) orally 3 ti mes a day prn (with food) 08/27/2022 Not-Taking traMADol HCl 50 MG 1-2 tab(s) orally ev araseli 6 hours prn 06/24/2022 Not-Taking Atorvastatin Calcium 40 MG 1 tab(s) orally once a day; Duration: 90 days Not-Takin g Jardiance 10 MG 1 tablet Orally Once a day; Duration: 30 day(s) Not-Taking NovoLOG 70/30 FlexPen ReliOn (70-30) 100 UNIT/ML 30-36 units Subcutaneous Three times a day 12/15/2023 Active PEN NEEDLE S/C 31GX5/16 1 PEN NEEDLE 2 TIMES A DAY OR DIRECTED; Duration: 30 DAYS 04/24/2018 Active Eliquis 5 MG 1 tab(s) orally once daily Active Vascepa 1 GM 2 cap(s) orally 2 ti mes a day 10/04/2018 Active Entresto 24-26 MG 1 cap(s) orally bid Active Vital Signs Blood pressure systolic 134 mm Hg 06/22/20 24 Blood pressure diastolic 74 mm Hg 024 Heart Rate 56 /min 06/22/2024 Height 72.50 in 06/22/2024 Weight 220.2 lbs 06/22/2024 BMI 29.45 kg/m2 06/22/2024 Encounters Encounter Location Date Provider Diagnosis [facility] [address] [facility] [address] [facility] [address] [place] [phone] 06/22/2024 Javier George Elevated PSA R97.20 ; Type 2 diabetes mellitus with diabetic neuropathy, unspecified E11.40 ; Dyslipidemia E78.5 and ASCVD (arteriosclerotic cardiovascular disease) I25.10 Assessments Encounter Date Diagnosis (ICD Code) Assessment Notes Treatment Notes Treatment Clinical Notes Section Notes 06/22/2024 Elevated PSA (ICD-10 - R97.20) 06/22/2024 Type 2 diabetes mellitus with diabetic neuropathy, unspecified (ICD-10 - E11.40) Forms completed for diabetic foot gear 06/22/2024 Dyslipidemia (ICD-10 - E78.5) 06/22/2024 ASCVD (arteriosclerotic cardiovascular disease) (ICD-10 - I25.10) Plan Of Treatment Treatment Notes Assessment Notes Type 2 diabetes mellitus wit h diabetic neuropathy, unspecified Forms completed for diabetic foot gear Next Appt Details Follow Up: 6 Months, Reason: Progress Notes * Felipa SORTOOB:1950 (74 yo M)Acc No.[id number]:06/22/2024 Progress Notes Patient: Sergey ROWLAND Provider: Javeir George M.D. :1950 A ge:73 Y S ex:Male Date:06/22/2024 Address:[address] [place] [address] [address] [id number] Subjective: * Chief Complaints: * 1 . Form to fill out diabetic shoes. * HPI: E ndocrinology: Maintenance P t presents for a diabetic foot exam for the completion of his paperwork necessary for his diabetic foot wear. C ardiology: He continues to follow regularly with cardiology. He is due for routine blood work. M renato Reproductive: He follows with Dr. Birmingham related to his elevated PSA. * ROS: D ERMATOLOGY: no R dick. n o H ann marie. G ASTROENTEROLOGY: no V omiting. n o D iarrhea. U ROLOGY: no D ifficulty urinating. n o B lood in urine. * Medical History: H ypertension, Diverticulosis by C-scope 11/20, Type 2 diabetes, Severe CAD (LAD,RCA) by heart cath 05/2017 - Dr. Duc Pacheco, Chronic atrial fib, Severe mitral regurgitation, Diabetic neuropathy, Hyperuricemia, Squamous cell carcinoma of left tonsil, First bite syndrome, Elevated PSA - followed by Dr. Birmingham. * Surgical History: d islocated right shoulder repair- now has pin , abdomnial hernia repair , heart cath 05/2017, Colonoscopy-[facility]-Dr. Rupesh Cortez 02/18/2014, Amputation of right great toe/ Dr. Culver 2020, Excision SCC left neck - Tonsillectomy, Lymph node, Partial Tongue resection 12/24/2022, G-tube 12/24/22, Right ankle fusion 03/13/23. * Hospitalization/Major Diagno stic Procedure: s ee above , [facility]-abdominal pain 06/23, Colonoscopy 2007,2012, [facility]-heart failure 06/10/17. * Family History: F ather: , [place]. M other: , liver problems, diabetes. M aternal Grand Mother: amputation due to DM. S iblings: hypertension. 2 brother(s) , 1 sister(s) . 2 daughter(s) - healthy. . Brother with diabetes. * Social History: C URRENT TOBACCO USE S moking Status: P atient does NOT smoke. C affeine: yes, frequency:. Marital Status: . Past smoking status: no. Alcohol: No. * Medications: T aking Entresto 24-26 MG Tablet 1 cap(s) orally bid , Taking Vascepa 1 GM Capsule 2 cap(s) orally 2 times a day , Taking Eliquis 5 MG Tablet 1 tab(s) orally once daily , Taking PEN NEEDLE S/C 31GX5/16 1 PEN NEEDLE 2 TIMES A DAY OR DIRECTED , Taking NovoLOG 70/30 FlexPen ReliOn (70-30) 100 UNIT/ML Suspension Pen-injector 30-36 units Subcutaneous Three times a day , Taking Metoprolol Succinate ER 100 MG Tablet Extended Release 24 Hour 1/2 tab(s) orally once a day , Not-Taking Jardiance 10 MG Tablet 1 tablet Orally Once a day , Not-Taking Aspirin Adult Low Dose 81 MG Tablet Delayed Release 1 tab(s) orally once a day , Not-Taking Torsemide 10 MG Tablet 1 tab(s) orally once a day , Not-Taking traMADol HCl 50 MG Tablet 1-2 tab(s) orally every 6 hours prn , Not-Taking Ibuprofen 800 MG Tablet 1 tab(s) orally 3 times a day prn (with food) , Not-Taking Atorvastatin Calcium 40 MG Tablet 1 tab(s) orally once a day , Not-Taking Pantoprazole Sodium 40 MG Tablet Delayed Release 1 tab(s) orally once a day , Not-Taking traMADol HCl 50 MG Tablet 1 tab(s) orally every 6 hours prn , Unknown Contour Next Test - Strip test bg fingerstick once daily , Notes to Pharmacist: E11.40, Unknown Contour Next Test - Strip test bg fingerstick twice daily , Medication List reviewed and reconciled with the patient * Allergies: N .K.D.A. Objective: * Vitals: W t:220.2, Temp:97.9, BP:134/74, HR:56, Nurse:PERRY, Ht: 72.50, BMI:29.45. * Examination: C ardiology: General Appearance: p leasant, NAD. H eart sounds: R RR, normal S1, S2. M urmur, click , gallop: n one. L ungs: c lear, no rales or wheezes. E xtremities: N o pedal edema. No foot ulcers. He is status post partial amputation of left great toe. Right ankle is fused with well-healed surgical incisions noted.? Distal pulses are diminished. Monofilament testing reveals decreased sensation in a stocking distribution of both feet and ankles.. Assessment: * Assessment: 1. E levated PSA - R97.20 (Primary) 2 . T ype 2 diabetes mellitus with diabetic neuropathy, unspecified - E11.40 3 . D yslipidemia - E78.5 4 . A SCVD (arteriosclerotic cardiovascular disease) - I25.10 Plan: * Treatment: Value Reference Range P SA 5.94 H <4.00 - ng/mL * Javier George 06/24/2024 8 :45:01 AM >See phone encounter 2.?Type 2 diabetes mellitus with diabetic neuropathy, unspecified?LAB: Glycohemoglobin A1c (in house) (Collection Date & Time - 06/22/2024)? 6.8%* Value Reference Range g lycohemoglobin 6.8% 5 - 6.5 % * Kandi Rodriguez 06/22/2024 2:33 :19 PM > Javier George 06/24/2024 8:45:01 AM >See phone encounter Notes: Forms completed for diabetic foot gear??3.?Dyslipidemia?LAB: P-Comprehensive Metabolic Panel (CMP) (Collection Date & Time - 06/22/2024 01:25 PM)?gluc 202, bun 25* Value Reference Range A /G Ratio 1.3 1.1-2.5 - * A lbumin 3.7 3.5-5.3 - g/dL * A lkaline Phosphatase 98 40-129 - IU/L * A LT (SGPT) 6 <5-55 - IU/L * A ST (SGOT) 14 <5-46 - IU/L * B ilirubin, Total 0.4 <0.2-1.2 - mg/dL * B UN 25 H 8-23 - mg/dL * C alcium 9.7 8.6-10.4 - mg/dL * C hloride 104 97-108 - mmol/L * C O2 25 22-32 - mmol/L * C reatinine 1.15 0.70-1.30 - mg/dL * G lucose 202 H 65-99 - mg/dL * P otassium 4.6 3.5-5.3 - mmol/L * S odium 139 135-145 - mmol/L * P rotein 6.6 6.0-8.3 - g/dL * e GFR by Creatinine 67 >59 - mL/min/1.73m2 * Javier George 06/24/2024 8 :45:01 AM >See phone encounter ?LAB: P-Lipid Panel (Collection Date & Time - 06/22/2024 01:25 PM)?trigs 328, hdl 31, chol/hdl 5.06* Value Reference Range C holesterol / HDL Ratio 5.06 H 0.00-4.99 - Ratio * C holesterol 157 <200 - mg/dL * H DL Cholesterol 31 L >39 - mg/dL * L DL Cholesterol (Calculation) 60 <130 - mg/d L * L DL/HDL Ratio 1.9 <3.3 - Ratio * N on-HDL Cholesterol 126 <130 - mg/dL * T riglycerides 328 H <150 - mg/dL * Javier George 06/24/2024 8 :45:01 AM >See phone encounter * Procedure Codes: 3 6416 CAPILLARY BLOOD DRAW, 66442 GLYCATED HEMOGLOBIN TEST, Modifiers: QW * Follow Up: 6 Months * Images: Billing Information: * Visit Code: 87378 Office Visit, Est Pt., Level 3. * Procedure Codes: 48279 CAPILLARY BLOOD DRAW. 25930 GLYCATED HEMOGLOBIN TEST. Modifiers: QW * Electronic signature of Javier George MD on 09/23/2025 at 07:31 AM EST Sign off status: Pending * Provider: Javier George M.D. Date: 0 06/22/2024 Generated for Emma phipps/Wes/eTransmitting on: 1 11/24/2024 07:31 AM EST History and Physical Notes * HPI (History of Present Illness) Category Sub-Category Detail Notes Category Not es Endocrinology Maintenance Pt presents for a diabetic foot exam for the completion of his paperwork necessary for his diabetic foot wear Examination Category Sub-Category Detail Notes Category Not es Cardiology Lungs: clear, no rales or wheezes Heart sounds: RRR, normal S1, S2 Extremities: No pedal edema. No f oot ulcers. He is status post partial amputation of left great toe. Right ankle is fused with well-healed surgical incisions noted. Distal pulses are diminished. Monofilament testing reveals decreased sensation in a stocking distribution of both feet and ankles. Murmur, click , gallop: none General Appearance: pleasant, NAD
--- OUTSIDE RECORDS SUMMARY | 2024-11-20 05:30 | XMS_ITS ---
Author Organization [facility] Address [address] [place] [id number] Care Team Providers Care Glassware Defect Repairer Name Role Phone Javier George Primary Care Provider Evgeny Briseno Unavailable [phone] Allergies No Known Allergies Results Component Value Reference Range Notes Glucose (In-House) Reviewed date:11/22/2024 09:57:48 AM Interpretation:115 Performing Lab: Notes/Report: 115 blood glucose 115 74 - 106 mg/dL Glycohemoglobin A1c (in hous e) Reviewed date:11/22/2024 09:57:48 AM Interpretation:7.4 Performing Lab: Notes/Report: 7.4 glycohemoglobin 7.4% 5 - 6.5 % P-Comprehensive Metabolic Pa rocky (CMP) Reviewed date:11/22/2024 09:57:48 AM Interpretation: Normal Performing Lab: Notes/Report: CLIA: [id number] Ramesh Reed MD, Landscape Technician [address] [facility] , [address], [place] [address] Test performed by [facility], [employer] Sodium 144 135-145 mmol/L Potassium 4.8 3.5-5.3 mmol/L Chloride 106 97-108 mmol/L CO2 26 22-32 mmol/L Glucose 96 65-99 mg/dL BUN 20 8-23 mg/dL Creatinine 1.13 0.70-1.30 mg/dL Calcium 9.5 8.6-10.4 mg/dL eGFR by Creatinine 68 >59 mL/min/1.73m2 Protein 7.0 6.0-8.3 g/dL Albumin 4.1 3.5-5.3 g/dL Alkaline Phosphatase 86 40-129 IU/L ALT (SGPT) 5 <5-55 IU/L AST (SGOT) 19 <5-46 IU/L Bilirubin, Total 0.6 <0.2-1.2 mg/dL A/G Ratio 1.4 1.1-2.5 P-Lipid Panel Reviewed date:11/22/2024 09:57:48 AM Interpretation:chol 204, trigs 221, non-hdl 163 Performing Lab: Notes/Report: Test performed by [facility], [facility] [address] [place] [address] , [address], [place] [address] Ramesh Reed MD, Landscape Technician CLIA: [id number] Cholesterol 204 <200 mg/dL Triglycerides 221 <150 mg/dL HDL Cholesterol 41 >39 mg/dL Cholesterol / HDL Ratio 4.98 0.00-4.99 Ratio Non-HDL Cholesterol 163 <130 mg/dL LDL Cholesterol (Calculation) 119 <130 mg/dL LDL Cholesterol Levels* Less than 100 mg/dL Optimal 100 to 129 mg/dL Near Optimal/ Above Optimal 130 to 159 mg/dL Borderline High 160 to 189 mg/dL High 190 mg/dL and above Very High * Categories as recommended by the 2004 ATPIII guidelines LDL/HDL Ratio 2.9 <3.3 Ratio LDL Cholesterol Patient History Test Date: 06/22/2024 LDL Results: 60 Units: mg/dL % Change: - Test Date: 11/20/2024 LDL Results: 119 Units: mg/dL % Change: +98% P-PSA Free and Total Reviewed date:11/22/2024 09:57:48 AM Interpretation:7.58 Performing Lab: Notes/Report: Test performed by [facility] [address] [place], [place] [address] [facility] [address] , [place] [address] Ramesh Reed MD, Landscape Technician CLIA: [id number] PSA 7.58 <4.00 ng/mL Please note this is an ultrasensitive PSA assay with a lower limit of detection of 0.014 ng/mL. This test is performed by the [employer] ECLIA methodology. Values obtained with different assay methods or kits cannot be directly compared. PSA Free 0.56 This test is performed by the [employer] ECLIA methodology. Values obtained with different assay methods or kits cannot be directly compared. fPSA, PCT 7.39 PROBABILITY OF PROSTATE CANCER (For Men with Non-suspicious KAVEH Results and PSA Between 4 and 10 ng/ml, by Patient Age) % Free PSA PATIENT AGE 50 to 64 Years 65 to 75 Years 0.00 to 10.00% 56% 55% 10.01 to 15.00% 24% 35% 15.01 to 20.00% 17% 23% 20.01 to 25.00% 10% 20% > / = 25.01% 5% 9% P-TSH reflex to FT4 Reviewed date:11/22/2024 09:57:48 AM Interpretation: Normal Performing Lab: Notes/Report: Test performed by [facility] [address] [place], [place] [address] [facility] [address], [place] [address] Ramesh Reed MD, Landscape Technician CLIA: [id number] TSH reflex to FT4 1.84 0.43-5.25 mU/L P-Microalbumin/Creatinine, R andom Urine Sample Reviewed date:11/22/2024 09:57:48 AM Interpretation:a/c 2424 Performing Lab: Notes/Report: Test performed by [facility], [facility] [address] [place] [address] , [address], [place] [address] Ramesh Reed MD, Landscape Technician CLIA: [id number] Albumin/Creatinine Ratio, Urine 2424 0-30 ug/m g Microalbumin, Urine, Random 312.7 Creatinine, Urine 129.0 REASON FOR VISIT checkup with fasting labs, discuss CGM Medications Medication SIG (Take, Route, Frequency, Duration) Notes Start Date End Date Status traMADol HCl 50 MG 1 tab(s) orally ever y 6 hours prn 06/08/2021 Not-Taking Contour Next Test - test bg fingerstick once daily E11.40 Unknown Pantoprazole Sodium 40 MG 1 tab(s) orally once a day; Duration: 30 day(s) 12/07/2021 Not-Edil ing FreeStyle Izzy 3 Sensor - as directed subcutaneously 11/20/2024 Active Atorvastatin Calcium 40 MG 1 tab(s) orally once a day; Duration: 90 days Not-Takin g Torsemide 10 MG 1 tab(s) orally once a day Not-Taking traMADol HCl 50 MG 1-2 tab(s) orally ev araseli 6 hours prn 06/24/2022 Not-Taking Jardiance 10 MG 1 tablet Orally Once a day; Duration: 30 day(s) Not-Edil ing Aspirin Adult Low Dose 81 MG 1 tab(s) orally once a day Not-Taking Ibuprofen 800 MG 1 tab(s) orally 3 ti mes a day prn (with food) 08/27/2022 Not-Taking PEN NEEDLE S/C 31GX5/16 1 PEN NEEDLE 2 TIMES A DAY OR DIRECTED; Duration: 30 DAYS 04/24/2018 Active Vascepa 1 GM 2 cap(s) orally 2 ti mes a day 10/04/2018 Active Entresto 24-26 MG 1 cap(s) orally bid Active Metoprolol Succinate ER 100 MG 1/2 tab(s) orally once a day Active Eliquis 5 MG 1 tab(s) orally once daily Active NovoLOG Mix 70/30 FlexPen (70-30) 100 UNIT/ML INJECT 30 TO 36 UNITS SUBCUTANEOUSLY THREE TIMES DAILY Active Contour Next Test - test bg fingerstick twice daily 01/03/2023 Unknown Vital Signs Blood pressure systolic 180 mm Hg 11/20/19 25 Blood pressure diastolic 100 mm Hg 025 Heart Rate 62 /min 11/20/2024 Height 72.50 in 11/20/2024 Weight 220.4 lbs 11/20/2024 BMI 29.48 kg/m2 11/20/2024 Encounters Encounter Location Date Provider Diagnosis [facility] [address] [facility] [address] [place] [address], [place] [id number] 11/20/2024 Evgeny Briseno Type 2 diabetes santino itus with diabetic neuropathy, unspecified E11.40 ; [facility] institution (current) use of insulin Z79.4 ; ASCVD (arteriosclerotic cardiovascular disease) I25.10 ; Chronic atrial fibrillation I48.20 ; Elevated PSA R97.20 ; Prostate cancer screening Z12.5 and Ischemic cardiomyopathy I25.5 Assessments Encounter Date Diagnosis (ICD Code) Assessment Notes Treatment Notes Treatment Clinical Notes Section Notes 11/20/2024 Type 2 diabetes mellitus with diabetic neuropathy, unspecified (ICD-10 - E11.40) Not at goal 11/20/2024 [facility] (current) use of insulin (ICD-10 - Z79.4) 11/20/2024 ASCVD (arteriosclerotic cardiovascular disease) (ICD-10 - I25.10) 11/20/2024 Chronic atrial fibrillation (ICD-10 - I48.20) 11/20/2024 Elevated PSA (ICD-10 - R97.20) 11/20/2024 Prostate cancer screening (ICD-10 - Z12.5) 11/20/2024 Ischemic cardiomyopathy (ICD-10 - I25.5) Plan Of Treatment Medication Medication Name Sig Start Date Stop Date Notes FreeStyle Izzy 3 Sensor - as directed subcutaneously 05/2025 Vascepa 1 GM 2 cap(s) orally 2 times a day 10/04/2018 Entresto 24-26 MG 1 cap(s) orally bid Metoprolol Succinate ER 100 MG 1/2 tab(s) orally once a day Eliquis 5 MG 1 tab(s) orally once daily NovoLOG Mix 70/30 FlexPen (70-30) 100 UNIT/ML INJECT 30 TO 36 UNITS SUBCUTANEOUSLY THREE TIMES DAILY Treatment Notes Assessment Notes Type 2 diabetes mellitus with diabetic n europathy, unspecified Not at goal Next Appt Details Follow Up: via phone to repo rt test results, 6 Months, Reason: Progress Notes * Felipa SORTOOB:1950 (74 yo M)Acc No.[id number]:11/20/2024 Progress Notes Patient: Sergey ROWLAND Provider: Bogdan Briseno M.D. :1950 A ge:74 Y S ex:Male Date:11/20/2024 Address:[facility] [address], [place], [id number] Pcp:Javier George Subjective: * Chief Complaints: * 1 . checkup with fasting labs, discuss CGM. * HPI: E ndocrinology: 74 year old male presents with c/o Recent Blood Sugars T he pat states he does check his glucose occasionally. Pt states he has had some low episodes and he will eat something and it will come back up. Pt would like to discuss getting a free style izzy or other monitoring device to help keep a check on his glucoses. * ROS: D ERMATOLOGY: no R dick. n o H ann marie. G ASTROENTEROLOGY: no N ausea. n o V omiting. U ROLOGY: no D ifficulty urinating. n [...] abdomnial hernia repair , heart cath 05/2017, Colonoscopy-[facility]-Dr. Rupesh Cortez 02/18/2014, Amputation of right great toe/ Dr. Culver 2020, Excision SCC left neck - Tonsillectomy, Lymph node, Partial Tongue resection 12/24/2022, G-tube 12/24/2022, Right ankle fusion . * Hospitalization/Major Diagno stic Procedure: -[facility]-abdominal pain 06/2011, Colonoscopy 2007,2012, [facility]-heart failure 06/10/2017. * Family History: F ather: , [place]. M other: , liver problems, diabetes. M [...] TIMES A DAY OR DIRECTED , Taking Metoprolol Succinate ER 100 MG Tablet Extended Release 24 Hour 1/2 tab(s) orally once a day , Taking NovoLOG Mix 70/30 FlexPen (70-30) 100 UNIT/ML Suspension Pen- injector INJECT 30 TO 36 UNITS SUBCUTANEOUSLY THREE TIMES DAILY , Not-Taking Jardiance 10 MG Tablet 1 [...] Allergies: N .K.D.A. Objective: * Vitals: W t:220.4, Temp:98.0, BP: 150/90,180/100, HR:62, Nurse:MAINOR, Ht: 72.50, BMI:29.48. * Examination: E ndocrinology: General Appearance: N AD. H eart: R SR. L ungs:?clear to auscultation. Assessment: * Assessment: 1. T ype 2 diabetes mellitus with diabetic neuropathy, unspecified - E11.40 (Primary) ? 2 . L josh term (current) use of insulin - Z79.4 3 . A SCVD (arteriosclerotic cardiovascular disease) - I25.10 4 . C hronic atrial fibrillation - I48.20 5 . E levated PSA - R97.20 6 . P rostate cancer screening - Z12.5 7 . I schemic cardiomyopathy - I25.5 Plan: * Treatment: Value Reference Range A /G Ratio 1.4 1.1-2.5 - * A lbumin 4.1 3.5-5.3 - g/dL * A lkaline Phosphatase 86 40-129 - IU/L * A LT (SGPT) 5 <5-55 - IU/L * A ST (SGOT) 19 <5-46 - IU/L * B ilirubin, Total 0.6 <0.2-1.2 - mg/dL * B UN 20 8-23 - mg/dL * C alcium 9.5 8.6-10.4 - mg/dL * C hloride 106 97-108 - mmol/L * C O2 26 22-32 - mmol/L * C reatinine 1.13 0.70-1.30 - mg/dL * G lucose 96 65-99 - mg/dL * P otassium 4.8 3.5-5.3 - mmol/L * S odium 144 135-145 - mmol/L * P rotein 7.0 6.0-8.3 - g/dL * e GFR by Creatinine 68 >59 - mL/min/1.73m2 * Tiki Ahumada 11/22/2024 9:57: 41 AM >See phone encounter ?LAB: P-Lipid Panel (Collection Date & Time - 11/20/2024 09:49 AM)?chol 204, trigs 221, non-hdl 163* Value Reference Range C holesterol / HDL Ratio 4.98 0.00-4.99 - Ratio * C holesterol 204 H <200 - mg/dL * H DL Cholesterol 41 >39 - mg/dL * L DL Cholesterol (Calculation) 119 <130 - mg/d L * L DL/HDL Ratio 2.9 <3.3 - Ratio * N on-HDL Cholesterol 163 H <130 - mg/dL * T riglycerides 221 H <150 - mg/dL * Tiki Ahumada 11/22/2024 9:57: 41 AM >See phone encounter ?LAB: P-TSH reflex to FT4 (Collection Date & Time - 11/20/2024 09:49 AM)? Normal* Value Reference Range T SH reflex to FT4 1.84 0.43-5.25 - mU/L * Tiki Ahumada 11/22/2024 9:57: 41 AM >See phone encounter ?LAB: P-Microalbumin/Creatinine, Random Urine Sample (Collection Date & Time - 11/20/2024 09:49 AM)?a/c 2424* Value Reference Range A lbumin/Creatinine Ratio, Urine 2424 H 0-30 - ug /mg * C reatinine, Urine 129.0 - mg/dL * M icroalbumin, Urine, Random 312.7 - mg/dL * Tiki Ahumada 11/22/2024 9:57: 41 AM >See phone encounter ?LAB: Glucose (In-House) (Collection Date & Time - 11/20/2024)?115* Value Reference Range b lood glucose 115 74 - 106 mg/dL * Rachelle Strickland 11/20/2024 11:0 7:35 AM > Tiki Ahumada 11/22/2024 9:57:41 AM >See phone encounter ?LAB: Glycohemoglobin A1c (in house) (Collection Date & Time - 11/20/2024)? 7.4* Value Reference Range g lycohemoglobin 7.4% 5 - 6.5 % * Rachelle Strickland 11/20/2024 11:0 8:00 AM > Tiki Ahumada 11/22/2024 9:57:41 AM >See phone encounter Notes: Not at goal??2.?ASCVD (arteriosclerotic cardiovascular disease)? Continue Metoprolol Succinate ER Tablet Extended Release 24 Hour, 100 MG, 1/2 tab(s), orally, once a day;?Continue Vascepa Capsule, 1 GM, 2 cap(s), orally, 2 times a day.?LAB: P-Comprehensive Metabolic Panel (CMP) (Collection Date & Time - 11/20/2024 09:49 AM)?Normal* Value Reference Range A /G Ratio 1.4 1.1-2.5 - * A lbumin 4.1 3.5-5.3 - g/dL * A lkaline Phosphatase 86 40-129 - IU/L * A LT (SGPT) 5 <5-55 - IU/L * A ST (SGOT) 19 <5-46 - IU/L * B ilirubin, Total 0.6 <0.2-1.2 - mg/dL * B UN 20 8-23 - mg/dL * C alcium 9.5 8.6-10.4 - mg/dL * C hloride 106 97-108 - mmol/L * C O2 26 22-32 - mmol/L * C reatinine 1.13 0.70-1.30 - mg/dL * G lucose 96 65-99 - mg/dL * P otassium 4.8 3.5-5.3 - mmol/L * S odium 144 135-145 - mmol/L * P rotein 7.0 6.0-8.3 - g/dL * e GFR by Creatinine 68 >59 - mL/min/1.73m2 * Tiki Ahumada 11/22/2024 9:57: 41 AM >See phone encounter ?LAB: P-Lipid Panel (Collection Date & Time - 11/20/2024 09:49 AM)?chol 204, trigs 221, non-hdl 163* Value Reference Range C holesterol / HDL Ratio 4.98 0.00-4.99 - Ratio * C holesterol 204 H <200 - mg/dL * H DL Cholesterol 41 >39 - mg/dL * L DL Cholesterol (Calculation) 119 <130 - mg/d L * L DL/HDL Ratio 2.9 <3.3 - Ratio * N on-HDL Cholesterol 163 H <130 - mg/dL * T riglycerides 221 H <150 - mg/dL * Tiki Ahumada 11/22/2024 9:57: 41 AM >See phone encounter 3.?Chronic atrial fibrillation? Continue Eliquis Tablet, 5 MG, 1 tab(s), orally, once daily.??4.?Elevated PSA?LAB: P-PSA Free and Total (Collection Date & Time - 11/20/2024 09:49 AM)? 7.58* Value Reference Range P SA 7.58 H <4.00 - ng/mL * P SA Free 0.56 - ng/mL * f PSA, PCT 7.39 - % * [facility] 11/22/2024 9:57: 41 AM >See phone encounter 5.?Prostate cancer screening?LAB: P-PSA Free and Total (Collection Date & Time - 11/20/2024 09:49 AM)? 7.58* Value Reference Range P SA 7.58 H <4.00 - ng/mL * P SA Free 0.56 - ng/mL * f PSA, PCT 7.39 - % * Tiki Ahumada 11/22/2024 9:57: 41 AM >See phone encounter 6.?Ischemic cardiomyopathy? Continue Entresto Tablet, 24-26 MG, 1 cap(s), orally, bid.?? * Procedure Codes: G 2211 Complex e/[place], [address] GLUCOSE TEST, 44038 GLYCATED HEMOGLOBIN TEST, Modifiers: QW , [address] VENIPUNCT, ROUTINE*, 23893 SPECIMEN HANDLING, 3051F HG A1C>EQUAL 7.0%<8.0% * Follow Up: v ia phone to report test results, 6 Months * Images: Billing Information: * Visit Code: 08745 Office Visit, Est Pt., Level 4. * Procedure Codes: G2211 Complex e/[place]. [address] GLUCOSE TEST. 87004 GLYCATED HEMOGLOBIN TEST. Modifiers: QW 23062 VENIPUNCT, ROUTINE*. 72454 SPECIMEN HANDLING. 3051F HG A1C>EQUAL 7.0%<8.0%. * Electronic signature of Wilda Briseno MD on 09/23/2025 at 07:32 AM EST Sign off status: Pending * Provider: Bogdan Briseno M.D. Date: 0 11/20/2024 Generated for Emma phipps/Wes/eTransmitting on: 1 11/24/2024 07:32 AM EST History and Physical Notes * HPI (History of Present Illness) Category Sub-Category Detail Notes Category Not es Endocrinology Recent Blood Sugars The pat stat es he does check his glucose occasionally. Pt states he has had some low episodes and he will eat something and it will come back up. Pt would like to discuss getting a free style izzy or other monitoring device to help keep a check on his glucoses Examination Category Sub-Category Detail Notes Category Not es Endocrinology Heart: RSR Lungs: clear to auscultatio n General Appearance: NAD
--- OUTSIDE RECORDS SUMMARY | 2024-12-28 11:30 | XMS_ITS ---
Author Organization [facility] Address [address] [place] [id number] Care Team Providers Care Painting Technician Name Role Phone Javier George Primary Care Provider [phone] Allergies No Known Allergies Results Component Value [...] as directed subcutaneously 11/20/2024 Active Vital Signs Blood pressure systolic 150 mm Hg 12/29/19 25 Blood pressure diastolic 80 mm Hg 025 Heart Rate 64 /min 12/28/2024 Height 72.50 in 12/28/2024 Weight 218.0 lbs 12/28/2024 BMI 29.16 kg/m2 12/28/2024 Encounters Encounter Location Date Provider Diagnosis [facility] [address] [place] [id number] 12/28/2024 Javier George Preop examination Z01.818 ; [...] Notes * Felisha SORTO:1950 (74 yo M)Acc No.[id number]:12/28/2024 Physical Patient: Sergey ROWLAND Provider: Javier George M.D. :1950 A ge:74 Y S ex:Male Date:12/28/2024 Address:[address] [place] [address], [id number] Subjective: * Chief Complaints: * 1 . Preop cpx. * HPI: A dult Pre-Op physical: 74 year old male presents with c/o Procedure: R emoval of hardware and right subtalar arthrodesis. c/o Date of Procedure: P t is having this done on January 20. c/o Name of Surgeon: Gee Treviño in [place] at the [facility]. Family history of anesthesia intolerance n o. H as had anesthesia before y es, had NO problems with anesthesia in the past. F unctional Status m edium (4-10 Mets). A nticoagulant y es, Eliquis. A SA/Ibuprofen/NSAIDS y es. * ROS: D ERMATOLOGY: no R dick. [...] abdomnial hernia repair , heart cath 05/2017, Colonoscopy-[facility]-Dr. Rupesh Cortez 02/18/2014, Amputation of right great toe/ Dr. Culver 2020, Excision SCC left neck - Tonsillectomy, Lymph node, Partial Tongue resection 12/24/2022, G-tube 12/24/2022, Right ankle fusion . * Hospitalization/Major Diagno stic Procedure: -[facility]-abdominal pain 06/2011, Colonoscopy 2007,2012, [facility]-heart failure 06/10/2017. * Family History: [...] G 2211 Complex e/m visit add on, O1182 MOST RECENT SYSTOLIC BP >= 140MM HG, G8754 MOST RECENT DIASTOLIC BP < 90MM HG * Follow Up: 3 Months * Images: Billing Information: * Visit Code: 89969 Office Visit, Est Pt., Level 4. * Procedure Codes: G2211 Complex e/m visit add on. G8753 MOST RECENT SYSTOLIC BP >= 140MM HG. G8754 MOST RECENT DIASTOLIC BP < 90MM HG. * Electronic signature of Javier George MD on 09/23/2025 at 07:31 AM EST Sign off status: Pending * Provider: Javier George M.D. Date: 0 12/28/2024 Generated for Emma phipps/Wes/eTransmitting on: 1 11/24/2024 07:31 AM EST History and Physical Notes * HPI (History of Present Illness) Category Sub-Category Detail Notes Category Not es Adult Pre-Op physical Procedure: Removal of hardware and right subtalar arthrodesis Date of Procedure: Pt is having this do ne on January 20 Name of Surgeon: Dr. Treviño in [facility] at the [facility] Family history of anesthesia intolerance no Has [...]
--- OUTSIDE RECORDS SUMMARY | 2025-01-11 09:45 | XMS_ITS ---
[facility] Address [address] [place] [id number] Care Team Providers Care Oral And Maxillofacial Surgery Name Role Phone Javier George Primary Care Provider [phone] Allergies No Known Allergies REASON FOR VISIT [...] Status W/U Status Risk Notes Problem Gallstones ([id number]) Gallstones (K80.20) Active confirmed Vital Signs Blood pressure systolic 120 mm Hg 01/12/20 25 Blood pressure diastolic 56 mm Hg 025 Height 72.50 in 01/11/2025 Weight 212.8 lbs 01/11/2025 BMI 28.46 kg/m2 01/11/2025 Encounters Encounter Location Date Provider Diagnosis [facility] [address] [place] [id number] 01/11/2025 Javier George Gallstones K80.20 Assessments Encounter [...] Notes * Felipa SORTOOB:1950 (74 yo M)Acc No.[id number]:01/11/2025 Progress Notes Patient: Sergey ROWLAND Provider: Javier George M.D. :1950 A ge:74 Y S ex:Male Date:01/11/2025 Address:[address] [place] [address] [address] [place] [id number] Subjective: * Chief Complaints: * 1 . [...] abdomnial hernia repair , heart cath 05/2017, Colonoscopy-[facility]-Dr. Rupesh Cortez 02/18/2014, Amputation of right great toe/ Dr. Culver 2020, Excision SCC left neck - Tonsillectomy, Lymph node, Partial Tongue resection 12/24/2022, G-tube 12/24/2022, Right ankle fusion . * Hospitalization/Major Diagno stic Procedure: -[facility]-abdominal pain 06/2011, Colonoscopy 2007,2012, [facility]-heart failure 06/10/2017. * Family History: F ather: , [place]. M other: , liver problems, diabetes. M [...] but diminished. Assessment: * Assessment: 1. G [place] - K80.20 (Primary) Plan: * Treatment: * Procedure Codes: G 2211 Complex e/m visit add on, G8752 MOST RECENT SYSTOLIC BP < 140MM HG, G8754 MOST RECENT DIASTOLIC BP < 90MM HG * Follow Up: p rn * Images: Billing Information: * Visit Code: 81107 Office Visit, Est Pt., Level 3. * Procedure Codes: G2211 Complex e/m visit add on. G8752 MOST RECENT SYSTOLIC BP < 140MM HG. G8754 MOST RECENT DIASTOLIC BP < 90MM HG. * Electronic signature of Javier George MD on 09/23/2025 at 07:31 AM EST Sign off status: Pending * Provider: Javier George M.D. Date: 0 01/11/2025 Generated for Emma phipps/Wes/Alexitting on: 1 11/24/2024 07:31 AM EST History and Physical Notes * Examination Category Sub-Category Detail Notes Category Not es General Examination He appea rs in no acute distress. Lungs are clear to auscultation. Heart is regular. Abdomen is soft and nondistended. No unusual masses or tenderness. Bowel sounds are present but diminished.
--- OUTSIDE RECORDS SUMMARY | 2025-02-15 04:30 | XMS_ITS ---
Author Organization [facility] Address [address] [place] [id number] Care Team Providers Care Jackspooler Name Role Phone Javier George Primary Care Provider [phone] Allergies No Known Allergies REASON FOR VISIT stomach ache; diarhea Medications Medication SIG (Take, Route, Frequency, Duration) Notes Start Date End Date Status Atorvastatin Calcium 40 MG 1 tab(s) orally once a day; Duration: 90 days Active traMADol HCl 50 MG 1 [...] 1 tab(s) orally once a day Not-Taking Dicyclomine HCl 10 MG 1 cap Orally three times a day as needed for cramping 02/15/2025 Active levoFLOXacin 500 MG 1 tablet Orally Once a day 02/15/2025 Active NovoLIN R FlexPen 100 UNIT/ML per sliding scale up to 50 units per day Injection four times a day as needed; Duration: 90 days E11.65 02/11/2025 Active NovoLOG Mix 70/30 FlexPen (70-30) 100 UNIT/ML INJECT 30 TO 36 UNITS Subcutaneous Three times a day Active Aspirin Adult Low Dose 81 MG 1 tab(s) orally once a day Active Jardiance 10 MG 1 tablet Orally Once a day; Duration: 30 day(s) Not-Edil ing Eliquis 5 MG 1 tab(s) orally once daily Active Vascepa 1 GM 2 cap(s) orally 2 ti mes a day 10/04/2018 Not-Taking FreeStyle Izzy 3 Sensor - as directed subcutaneously 11/20/2024 Active PEN NEEDLE S/C 31GX5/16 1 PEN NEEDLE 2 TIMES A DAY OR DIRECTED; Duration: 30 DAYS 04/24/2018 Active Metoprolol Succinate ER 100 MG 1/2 tab(s) orally once a day; Duration: 90 days Active Entresto 24-26 MG 1 cap(s) orally bid Active Vital Signs Blood pressure systolic 150 mm Hg 02/16/20 25 Blood pressure diastolic 90 mm Hg 025 Heart Rate 48 /min 02/15/2025 Height 72.50 in 02/15/2025 Weight 213.2 lbs 02/15/2025 BMI 28.51 kg/m2 02/15/2025 Encounters Encounter Location Date Provider Diagnosis [facility] [address] [facility] [address] [place], [place] [id number] 02/15/2025 Javier George Enterocolitis K52.9 and BMI 28.0-28.9,adult Z68.28 Assessments Encounter Date Diagnosis (ICD Code) Assessment Notes Treatment Notes Treatment Clinical Notes Section Notes 02/15/2025 Enterocolitis (ICD-10 - K52.9) vs diverticulitis 02/15/2025 BMI 28.0-28.9,adult (ICD-10 - Z68.28) Plan Of Treatment Medication Medication Name Sig Start Date Stop Date Notes Dicyclomine HCl 10 MG 1 cap Orally three times a day as needed for cramping 02/15/2025 levoFLOXacin 500 MG 1 tablet Orally Once a day 02/15/2025 Next Appt Details Follow Up: 1 Week,darionTani n: Progress Notes * Felipa SORTOOB:1950 (74 yo M)Acc No.[id number]:02/15/2025 Progress Notes Patient: Sergey ROWLAND Provider: Javier George M.D. :1950 A ge:74 Y S ex:Male Date:02/15/2025 Address:[address], [place] [id number] Subjective: * Chief Complaints: * 1 . Stomach ache; diarhea. * HPI: G astroenterology: He presents with a 1 week history of left lower quadrant cramping and diarrhea. Typically occurs after eating but not related to any particular food. No nausea or vomiting. No fever, melena, hematochezia. 74 year old male presents with c/o Abdominal Pain l ower abdomen. Pt states he has had lower abdominal pain and diarrhea for about a week. Pt states it has improved some over the past 2 days. c/o Diarrhea w atery. Denies : Nausea. D enies : Vomiting. D enies : Fever.? He has a history of diverticulosis on previous colonoscopy. * ROS: D ERMATOLOGY: no R dick. n o H ann marie. G ASTROENTEROLOGY: no N ausea. n o V omiting. D iarrhea y es.? U ROLOGY: no D ifficulty urinating. n [...] abdomnial hernia repair , heart cath 05/2017, Colonoscopy-[facility]-Dr. Rupesh Cortez 02/18/2014, Amputation of right great toe/ Dr. Culver 2020, Excision SCC left neck - Tonsillectomy, Lymph node, Partial Tongue resection 12/24/2022, G-tube 12/24/2022, Right ankle fusion/ Dr. 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 Treviño 06/12/2023, Subtalar joint arthrodesis/ Dr. Treviño 01/20/2025. * Hospitalization/Major Diagno stic Procedure: -[facility]-abdominal pain 06/2011, Colonoscopy 2007,2012, [facility]-heart failure 06/10/2017. * Family History: F ather: , [place]. M other: , liver problems, diabetes. M [...] - Miscellaneous as directed subcutaneously , Taking Entresto 24-26 MG Tablet 1 cap(s) orally bid , Taking Metoprolol Succinate ER 100 MG Tablet Extended Release 24 Hour 1/2 tab(s) orally once a day , Taking NovoLOG Mix 70/30 FlexPen (70-30) 100 UNIT/ML Suspension Pen-injector INJECT 30 TO 36 UNITS Subcutaneous Three times a day , Taking NovoLIN R FlexPen 100 UNIT/ML Solution Pen-injector per sliding scale up to 50 units per day Injection four times a day as needed , Notes to Pharmacist: E11.65, Taking Eliquis 5 MG Tablet 1 tab(s) orally once daily , Taking Aspirin Adult Low Dose 81 MG Tablet Delayed Release 1 tab(s) orally once a day , Taking Atorvastatin Calcium 40 MG Tablet 1 tab(s) orally once a day , Not-Taking Vascepa 1 GM Capsule 2 cap(s) orally 2 times a day , Not-Taking Jardiance 10 MG Tablet 1 tablet Orally Once a day , Not-Taking Torsemide 10 MG Tablet 1 tab(s) orally once a day , Not-Taking traMADol HCl 50 MG Tablet 1-2 tab(s) orally every 6 hours prn , Not-Taking Ibuprofen 800 MG Tablet 1 tab(s) orally 3 times a day prn (with food) , Not-Taking Pantoprazole Sodium 40 MG Tablet Delayed Release 1 tab(s) orally once a day , Not-Taking traMADol HCl 50 MG Tablet 1 tab(s) orally every 6 hours prn , Discontinued Contour Next Test - Strip test bg fingerstick once daily , Notes to Pharmacist: E11.40, Discontinued Contour Next Test - Strip test bg fingerstick twice daily , Medication List reviewed and reconciled with the patient * Allergies: N .K.D.A. Objective: * Vitals: W t: 213.2, Temp: 97.9, BP: 150/90, HR: 48, O2 Sat: 97% on RA, Nurse: MAINOR, Ht: 72.50, BMI:28.51. * Examination: G eneral Examination: General Appearance: N AD. H eart: R SR. L ungs:?clear to auscultation. A bdomen: S oft, nondistended, minimal tenderness. No rebound. Assessment: * Assessment: 1. E nterocolitis - K52.9 (Primary) N otes :vs diverticulitis 2 . B [place] 28.0-28.9,adult - Z68.28 Plan: * Treatment: * Procedure Codes: G 2211 Complex e/m visit add on * Follow Up: 1 Week,prn * Images: Billing Information: * Visit Code: 37661 Office Visit, Est Pt., Level 3. * Procedure Codes: G2211 Complex e/m visit add on. * Electronic signature of Javier George MD on 09/23/2025 at 07:31 AM EST Sign off status: Pending * Provider: Javier George M.D. Date: 0 02/15/2025 Generated for Emma phipps/Wes/eTransmitting on: 1 11/24/2024 07:31 AM EST History and Physical Notes * HPI (History of Present Illness) Category Sub-Category Detail Notes Category Not es Gastroenterology Fever He has a hi story of diverticulosis on previous colonoscopy Vomiting Abdominal Pain lower abdomen. Pt st ates he has had lower abdominal pain and diarrhea for about a week. Pt states it has improved some over the past 2 days Diarrhea watery Nausea Examination Category Sub-Category Detail Notes Category Not es General Examination Heart: RSR Lungs: clear to auscultatio n Abdomen: Soft, nondistended, minimal tenderness. No rebound General Appearance: NAD
--- OUTSIDE RECORDS SUMMARY | 2025-09-23 07:31 | XMS_ITS | Clinical Summary ---
Author Organization [facility] Address [address], [address] [place] [address] Care Team Providers Care Middle School Teacher Name Role Phone Joe George MD Primary Care Provider [phone] Allergies No known active allergies Medications apixaban [...] this topic Medical Devices Implanted Type Area Car Chaser Device Identifier Shelf Expiration Date Model / Serial / Lot Screw Omero 6.5mm X L60mm 16mm Thrd - [id number] Implanted:Qty: 1 on 06/12/2023 by Nino Treviño MD at [facility] Screw/ Plate/ Nail/R od Right: Foot ARIELLE: ORTHOPAEDICS-PMM [id number] / / Kit Grft Sub 2xsm 0.7ml 1.05mg Rhbmp-[address] H2o Cllgn - [id number] Implanted:Qty: 1 on 03/13/2023 by Nino Treviño MD at [facility] Right: Ankle [employer] SPINALGRAFT TECH-WD 09/11/2024 [id number] / / [id number] Extremity Medical Biofuse Pro Osteo Viable Matrix 5cc Implanted:Qty: 1 on 03/13/2023 by Nino Treviño MD at [facility] Right: Ankle 07/22/2024 [id number] / [id number] / Graft Bone Sub 2ml Hum Braydon Demin Fbr Stagrft - [id number] Implanted:Qty: 1 on 03/13/2023 by Nino Treviño MD at [facility] Right: Ankle SANTO BIOMET TRAUMA-WD [id number] 09/19/2025 [id number] / / [id number] Screw Bne Sm L25mm Aqua For Io Fix X-Post Iofix 2.0 - [id number] Implanted:Qty: 1 on 03/13/2023 by Nino Treviño MD at [facility] Right: Ankle EXTREMITY MEDICAL-WD [id number] / / Screw Bone Sm L30mm Aqua For Intoss Fixationx-Post Iofix 2.0 - [id number] Implanted:Qty: 1 on 03/13/2023 by Nino Treviño MD at [facility] Right: Ankle [facility] [id number] / / Screw Bone L45mm Dia5mm Tapr Lck For Intoss Fix Iofix 2.0 - [id number] Implanted:Qty: 1 on 03/13/2023 by Nino Treviño MD at [facility] Right: Ankle [facility] [id number] / / Screw Bne L50mm Dia5mm Tapr Alma For Io Fix Iofix 2.0 - [id number] Implanted:Qty: 1 on 03/13/2023 by Nino Treviño MD at [facility] Right: Ankle EXTREMITY [facility] [id number] / / Screw Bone L45mm Dia4.5mm Hd Nonlocking Lo Prof For Intoss - [id number] Implanted:Qty: 1 on 03/13/2023 by Nino Treviño MD at [facility] Right: Ankle [facility] [id number] / / Screw Bne L40mm Dia4mm Canc Ti Nonlocking For Sm Frag - [id number] Implanted:Qty: 2 on 03/13/2023 by Nino Treviño MD at [facility] Right: Ankle SANTO [employer]ET TRAUMA- [id number] / / Graft Bne Sub 1cc Demin Bne Mtrx Ptty Osteoinductive Inj - [id number] Implanted:Qty: 1 on 06/12/2023 by Nino Treviño MD at [facility] Right: Foot [employer]- 11/13/2024 [id number] / [id number] / Graft Bne Sub 1cc Demin Bne Mtrx Ptty Osteoinductive Inj - [id number] Implanted:Qty: 1 on 06/12/2023 by Nino Treviño MD at [facility] Right: Foot [employer]- 11/13/2024 [id number] / [id number] / Graft Bne Sub 1cc Demin Bne Mtrx Ptty Osteoinductive Inj - [id number] Implanted:Qty: 1 on 06/12/2023 by Nino Treviño MD at [facility] Right: Foot [employer]- 11/13/2024 [id number] / [id number] / Graft Bone Sub 5ml Hum Braydon Demin Fbr Stagrft - [id number] Implanted:Qty: 1 on 06/12/2023 by Nino Treviño MD at [facility] Right: Foot S[employer]O [employer] TRAUMA- [id number] 04/08/2025 [id number] / / [id number] Kit Grft Sub 2xsm 0.7ml 1.05mg Rhbmp-[address] H2o Cllgn - [id number] Implanted:Qty: 1 on 06/12/2023 by Nino Treviño MD at [facility] Right: Foot [employer] SPINALGRAFT TECH- 09/11/2024 [id number] / / [id number] R Description:Passed off to CS T AT 1000 Graft Bone Sub 5ml Hum Braydon Demin Fbr Stagrft - [id number] Implanted:Qty: 1 on 06/12/2023 by Nino Treviño MD at [facility] Right: Foot SANTO BIOMET TRAUMA- 04/08/2025 [id number] / / [id number] Plate Bne Tibiotalocalcaneal Anterolateral Axsos 3 692301 - [id number] Implanted:Qty: 1 on 06/12/2023 by Nino Treviño MD at [facility] Right: Foot ARIELLE ORTHOPED[employer] [facility] [id number] / / Screw Bne Omero 6.5x55 Mm 16 Mm Thrd Axsos 3 - [id number] Implanted:Qty: 1 on 06/12/2023 by Nino Treviño MD at [facility] Right: Foot ARIELLE ORTHOPED[employer] [facility] [id number] / / Screw Bne L28mm Dia4mm Ti Ally Alma Full Thrd T15 Drv Axsos - [id number] Implanted:Qty: 1 on 06/12/2023 by Nino Treviño MD at [facility] Right: Foot [employer] [facility] [id number] / / Screw Bne L30mm Dia4mm Ti Ally Alma Full Thrd T15 Drv Axsos - [id number] Implanted:Qty: 1 on 06/12/2023 by Nino Treviño MD at [facility] Right: Foot [employer]ELLE OR[employer]OP[employer] [facility] [id number] / / Screw Bne L32mm Dia4mm Ti Ally Alma Full Thrd T15 Drv Axsos - [id number] Implanted:Qty: 2 on 06/12/2023 by Nino Treviño MD at [facility] Right: Foot [employer]ELLE [employer] [facility] [id number] / / Screw Bne L36mm Dia4mm Std Canc Ti St Alma Lo Prof For Axsos - [id number] Implanted:Qty: 1 on 06/12/2023 by Nino Treviño MD at [facility] Right: Foot [employer]ELLE [employer] [facility] [id number] / / Screw Bne L38mm Dia4mm Std Canc Ti St Alma Lo Prof For Axsos - [id number] Implanted:Qty: 1 on 06/12/2023 by Nino Treviño MD at [facility] Right: Foot [employer]LE ORTH[employer] [facility] [id number] / / K Wire Fix L150mm Dia2mm S Stl Sgl End Smooth Sgl Shrp Tip - [id number] Implanted:Qty: 5 on 06/12/2023 by Nino Treviño MD at [facility] Right: Foot [employer]LE [employer] [facility] [id number] / / Graft Bne Substitute 5 Cc Viable Mtrx Can Mtx - So Implanted:Qty: 1 on 01/20/2025 by Nino Treviño MD at [facility] Right: Foot EXTREMITY MEDICAL- 07/30/2025 [id number] / O / [id number] Graft Bne Sub [id number] m [id number] [place] - [id number] Implanted:Qty: 1 on 01/20/2025 by Nino Treviño MD at [facility] Right: Foot [employer]- [id number] 08/06/2027 [facility] / [id number] / Graft Bne Substitute 5 Cc Viable Mtrx Can Mtx - [id number] Implanted:Qty: 1 on 01/20/2025 by Nino Treviño MD at [facility] Right: Foot EXT[employer]ITY MEDICAL- 07/30/2025 [id number] / / [id number] 35-017 Kit Grft Sub 2xsm 0.7ml 1.05mg Rhbmp-[address] H2o Cllgn - [id number] Implanted:Qty: 1 on 01/20/2025 by Nino Treviño MD at [facility] [employer] SPINALGRAFT TECH- 11/12/2025 [id number] / / [id number] Beam Fix 4.5x60 Mm - [id number] Implanted:Qty: 1 on 01/20/2025 by Nino Treviño MD at [facility]- [id number] / / Beam Fix L110mm Dia5.5mm Arth For Charcot Deformity [place] - [id number] Implanted:Qty: 1 on 01/20/2025 by Nino Treviño MD at [facility]- [id number] / / Beam Fix 6.5x125 Mm Charcoat Fix Sys [place] - [id number] Implanted:Qty: 1 on 01/20/2025 by Nino Treviño MD at [facility]- [id number] / / Screw Bne 8.5x120 Mm Fix Beam For Charcot Fix Sys [place] - [id number] Implanted:Qty: 1 on 01/20/2025 by Nino Treviño MD at [facility] MEDICAL- [id number] / / Insurance [employer] MEDICARE MEDICARE MEDICARE MEDICARE SUPP Advance Directives Documents on File Type Date Recorded Patient Mechatronics Technologist Expl anation ACP-Advance Directive 03/19/2023 12:03 AM ACP-Advance Directive 03/18/2023 11:13 PM * Full Code (Latest Code Status on File) Date Activated Date Inactivated Comments 03/13/2023 5:35 PM 03/14/2023 11:55 AM Care Teams Middle School Teacher Relationship Specialty Start Date End Date Joe George MD [facility] [address] [facility] [address] [place] [phone] PCP - General 03/06/23
--- OUTSIDE RECORDS SUMMARY | 2025-09-23 07:32 | XMS_ITS | Referral Summary ---
Author Organization [employer] ([place], [place], [place], [place], [place]) Address [address] [place] [address] Care Team Providers Care Dressmaker Helper Name Role Phone Neelam Hameed PA-C Unavailable [phone] Joe George MD Primary Care Provider [phone]- [phone] Allergies No known active allergies Medications apixaban [...] 09/06/2021 Influenza High Dose Preservative Free IM ([id number] ) 07/31/2022,07/12/2020 Pneumococcal Conjugate (Prevnar) 13-Valent 07/12 [...] Date Mahad rded Speak language other than Hebrew at home Not on file 10/31/2023 Want [...] Plan of Treatment Not on file Insurance [facility] MEDICARE PPO Care Teams Dressmaker Helper Relationship Specialty Start Date End Date Joe George MD [address] [facility] [address] [place] [address] PCP - General Family Medicine 12/10/22 Neelam Hameed PAFrankC [address] [place] [address] Physician Perioperative Educator Oncology 12/09/22
--- OUTSIDE RECORDS SUMMARY | 2025-09-23 07:32 | XMS_ITS ---
Author Organization [employer] ([place], [place], [place], [place], [place]) Address [address] [place] [address] Care Team Providers Care Bi Specialist Name Role Phone Neelam Hameed PA-C Unavailable [phone] Joe George MD Primary Care Provider [phone] Active Problems Problem Noted Date Diagnosed Date [...] apixiban BID Current Treatment and Therapy Plans [facility] - USE WITH INFUSIONS* Plan [...]
--- OUTSIDE RECORDS SUMMARY | 2025-09-23 07:32 | XMS_ITS | Clinical Summary ---
Author Organization [employer] ([place], [place], [place], [place], [place]) Address [address] [place] [address] Care Team Providers Care Flooring Grader Name Role Phone Neelam Hameed PA-C Unavailable [phone] Joe George MD Primary Care Provider [phone] Allergies No known active allergies Medications apixaban [...] 09/06/2021 Influenza High Dose Preservative Free IM (CRV378 ) 07/31/2022,07/12/2020 Pneumococcal Conjugate (Prevnar) 13-Valent 07/12 Family History Medical History Relation Name Comments Benign prostatic hyperplasia Brother 1 [place] Heart attack Brother 1 [place] Heart disease Brother 1 [place] Hypertension Brother 1 [place] Aneurysm Brother 2 [place] Cirrhosis Brother 2 [place] Diabetes Brother 2 [place] Heart disease Brother 2 [place] No Known Problem Daughter 1 [place] No Known Problem Daughter 2 Krista Heart attack Father Heart disease Father Hypertension Father Diabetes Mother No Known Problem Sister Relation Name Status Comments Brother 1 [place] Brother 2 [place] Daughter 1 [place] Alive [...] Date Mahad rded Speak language other than Tajik at home Not on file 10/31/2023 Want [...] Counseling and Screening (12+) 10/07/2025 10/07/2024 Insurance [facility] PPO Care Teams Flooring Grader Relationship Specialty Start Date End Date Joe George MD [address] [place] [address] PCP - General Family Medicine 12/10/22 Neelam Hameed, PAFrankC [address] [place] [address] Physician Access Registrar Oncology 12/09/22
--- OUTSIDE RECORDS SUMMARY | 2025-09-23 07:32 | XMS_ITS | Encounter Summary ---
Author Organization [facility] Address [address] [place] [address] Care Team Providers Care Terrazzo Polisher Helper Name Role Phone Ata Williamson MD Unavailable [phone] Bora Varner MD Unavailable [phone] Joe George MD Primary Care Provider [phone] Encounter Details Date Type Department Care Team (Late st Contact Info) Description 09/12/2025 Telephone [facility] Head[facility] Neck & Respiratory [address] [facility]nd [place] [address] Bora Varner MD [address] [facility] [address] [place] [address] Social History Tobacco Use Types Packs/Day Years [...] drink first t petra in the morning (EYE-TABULATING SUPERVISOR) to steady your nerves or to get [...] encounter Miscellaneous Notes * Telephone Encounter - Jeaneth Krishnamurthy - 09/12/2025 2:19 PM EST I called patient to confirm tomorrow's appointment, patient's spouse answered and confirmed. documented in this encounter Plan of Treatment Upcoming Encounters Date Type Department Care Team (Late st Contact Info) Description 10/18/2025 8:00 AM EST Office Visit [facility] Head[facility] Neck [facility] Respiratory [address] [facility] [place] [address] Bora Varner MD [address] [facility] [address] [place] [address] documented as of this encounter Visit Diagnoses Not on filedocumented in this encounter Additional Health Concerns Assessment Noted Time A fall risk assessment has been complete d for the patient 03/18/2025 10:42 AM EDT A Body Mass Index follow-up plan has been documented for the patient 09/07/2024 6:57 PM EST documented as of this encounter Care Teams Terrazzo Polisher Helper Relationship Specialty Start Date End Date Joe George MD [address] [place] [address] PCP - General 12/04/23 Ata Williamson MD [address] [place] [phone] 12/11/22 Bora Varner MD [address] [place] [address] [address] Surgeon Otolaryngology 12/11/22 documented as of this encounter
--- OUTSIDE RECORDS SUMMARY | 2025-09-23 07:33 | XMS_ITS ---
Author Organization [facility] Address [address] [place] [address] Care Team Providers Care Escrow Closer Name Role Phone Ata Williamson MD Unavailable [phone] Bora Varner MD Unavailable [phone] Joe George MD Primary Care Provider [phone]- [phone] Active Problems Problem Noted Date Diagnosed Date [...] Tube feeding per nutritional recommendations via PEG COMPUTER SERVICE TECHNICIAN consult as indicated Tongue cancer 12/20/2022 Diabetic [...] III symptoms Coronary artery disease invo lving [place] coronary artery of [place] heart with angina pectoris 06/06/2017 Overview (01/01/2023): [...] in 2 weeks Type 2 diabetes mellitus, [facility] long-term current use of insulin 06/06/2017 [...]
--- OUTSIDE RECORDS SUMMARY | 2025-09-23 07:33 | XMS_ITS | Encounter Summary ---
Author Organization [facility] Address [address] [place] [address] Care Team Providers Care Winter Sports Manager Name Role Phone Ata Williamson MD Unavailable [phone] Bora Varner MD Unavailable [phone] Pcp, No Primary Care Provider Unavailabl e Joe George MD Primary Care Provider [phone] Encounter Details Date Type Department Care Team (Late st Contact Info) Description 12/23/2022 Lab Requisition [facility] [address] [place] [address] Bora Varner MD [address] [facility] [address] [place] [address] Localized enlarged lymph nodes Social History [...] as of this encounter Functional Status * Question Answer Date of Assessment Author Precautions Environmental surveillance 12/26/2022 8:0 0 PM EDT Kamilah Ortega * Calculated C-SSRS Risk Score (Lifetime/Recent) Answer [...] Mckayla Way documented as of this encounter Mental Status * Question Answer Entry Date Author Precautions Environmental surveillance 12/26/2022 8:0 0 PM EDT Kamilah Ortega * Question Answer Entry Date Author Backup Resp Rate (Set) 16 12/25/2022 3:55 AM EDT Cj Ramos documented in this encounter Plan of Treatment Upcoming Encounters Date Type Department Care Team (Late st Contact Info) Description 10/18/2025 8:00 AM EST Office Visit [facility] Head, Neck & Respiratory [address] [place] [address] Bora Varner MD [address] [facility] [address] [place] [phone] documented as of this encounter Procedures Procedure Name Priority Date/Time Associated Diagnosis Comments CYTOLOGY CONSULT Routine 12/23/2022 9:57 AM EDT Localized enlarged lymph nodes documented in this encounter Results * Cytology Consult (12/23/2022 9:57 AM EDT) Case Report Cytology Case: [id number] Authorizing Provider: Bora Varner MD Collected: 12/23/202257 Ordering Location: [facility] Lab Received: 12/23/202257 Pathologist: Lisy Cox MD Specimen: Neck, Left, Fine Needle Aspiration, [id number] 12/25/2022 5:36 PM EDT [facility] Final Diagnosis A. LEFT NECK MASS, LYMPH NODE, FINE NEEDLE ASPIRATION (OUTSIDE CASE [id number], COLLECTED 12/03/2022) - POSITIVE FOR MALIGNANCY, SQUAMOUS CELL CARCINOMA (SEE COMMENT). 12/25/2022 5:36 PM EDT [facility] at 1736 EDT Comment P16 immunostaining was attempted by the referring institution, but the material was too scant for definitive interpretation of the stain. 12/25/2022 5:36 PM EDT [facility] Clinical Information R59.0 - Localized enlarged lymph nodes [ICD-10-CM] 12/25/2022 5:36 PM EDT [facility] Gross Description A. [id number] For clinical data and diagnosis (MALIGNANT) for this specimen ([id number]/FNA) see final report issued by [facility] Pathology Department. 12/25/2022 5:36 PM EDT [facility] Fine Needle Aspirate Neck structure / Unknown 12/23/2022 9:57 AM EDT 12/23/2022 9:57 AM EDT us Bora Varner MD LAB PATHOLOGY ORDERABLES Fin al Result [facility] [address] [place] [address] documented in this encounter Visit Diagnoses Diagnosis Localized enlarged lymph nodes documented in this encounter Additional Health Concerns Assessment Noted Time A fall risk assessment has been complete d for the patient 12/20/2022 10:19 AM EST documented as of this encounter Care Teams Winter Sports Manager Relationship Specialty Start Date End Date Pcp, No [address] [place] [address] PCP - General Family Medicine 12/18/22 12/03/23 Joe George MD [address] [place] [address] PCP - General 12/04/23 Ata Williamson MD [address] [place] [address] 12/11/22 Bora Varner MD [address] [place] [address] [phone] Surgeon Otolaryngology 12/11/22 documented as of this encounter
--- OUTSIDE RECORDS SUMMARY | 2025-09-23 07:33 | XMS_ITS | Clinical Summary ---
Author Organization [facility] Address [address] [place] [address] Care Team Providers Care Wood Model Maker Name Role Phone Ata Williamson MD Unavailable [phone] Bora Varner MD Unavailable [phone] Joe George MD Primary Care Provider [phone] Allergies No known active allergies Medications atorvastatin (Lipitor) 40 MG tablet Take 1 tablet (40 mg) by mouth every night. 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 [address] [place] [address] Health Maintenance Due Date Last Done Comments [facility]-Hepatitis C Screening 1950 [facility]-Medicare Annual Wellness (AWV) 1950 [facility]-Infant/Child/Adol SDOH Screenings 1950 Diabetes: Dental Exam 1960 [facility]- SDOH Screenings 1968 [facility]-Adult SDOH Screenings 1968 CT Colonography 1995 Colonoscopy 1995 FIT-DNA 1995 FIT 1995 FOBT 1995 Sigmoidoscopy 1995 [facility]-Colorectal Cancer Screening 1995 [facility]-Zoster Vaccines (1 of 2) 10/13/2017 08/18/2017 [facility]-Pneumococcal Vaccine: 50+ Years (2 of 2 - PPSV23, PCV20, or PCV21) 09/06/2020 07/12/2020 [id number] Vaccine (3 - Moderna risk series) 02/21/2021 01/24/2021, 12/27/2020 [facility]-Diabetes: Hemoglobin A1C 03/15/202401/2024, 12/27/2022, 09/06/2021, Additional history exists [facility]-Depression Screening 03/09/2025 03/09/2024 [facility]-Influenza Vaccine (#1) 06/13/202509/14, 07/18/2023, 09/06/2021, Additional history exists [facility]-DTaP,Tdap,and Td Vaccines (2 - Td or Tdap) 10/14/2026 10/14/2016 [facility]-RSV Vaccine: 60+ Years or Completed 07/18/2023 [facility]-Obesity Intervention Completed 024, 03/09/2024, 01/15/2023 HPV Vaccines (No Doses Required) Completed [facility]-HIB Vaccines Aged Out No longer e [...] this topic Medical Devices Implanted Type Area Ob/Gyn Doctor Device Identifier Shelf Expiration Date Model / Serial / Lot Pin Pin Right: Shoulder Screw Screw Right: Ankle Procedures Procedure Name Priority Date/Time Associated Diagnosis Comments HEMOGLOBIN A1C Routine 12/27/2022 3:26 AM EDT from Last 3 Months or Most Recently Relevant to Health Maintenance Results * (ABNORMAL) Hemoglobin A1c (12/27/2022 3:26 AM EDT) Hemoglobin A1c 7.7(H) <5.7 % 12/27/2022 5:13 AM EDT [facility] Blood Venous blood specimen / Unknown [...] Adults <6.0% Children and Adolescents <7.5% Source: [place] [employer]. Standards of medical care in diabetes,2017. Diabetes Care.2017:40 (suppl 1):S1-S135. HbA1c assay performed by an ion-exchange chromatography method that is certified traceable to the DCCT. us Louie Ace MD LAB BLOOD ORDERABLES Final Resul t [facility] [address] [place] [address] from Last 3 Months or Most Recently Relevant to Health Maintenance [place] [address] HUMAN Advance Directives * Full Code (Latest Code Status on File) Date Activated Date Inactivated Comments 01/08/2023 5:49 PM 01/11/2023 9:22 PM Question Answer Comments Patient has decision-making capacity? Yes Care Teams Wood Model Maker Relationship Specialty Start Date End Date Joe George MD [address] [place] [address] PCP - General 12/04/23 Ata Williamson MD [address] [place] [address] 12/11/22 Bora Varner MD 800 [facility] [address] [phone] Surgeon Otolaryngology 12/11/22
--- OUTSIDE RECORDS SUMMARY | 2025-09-23 07:34 | XMS_ITS | Encounter Summary ---
Author Organization [facility] Address [address] [place] [address] Care Team Providers Care Management Trainee Program Stores Name Role Phone Ata Williamson MD Unavailable [phone] Bora Varner MD Unavailable [phone] Pcp, No Primary Care Provider Unavailabl e Joe George MD Primary Care Provider [phone]- [phone] Encounter Details Date Type Department Care Team (Late st Contact Info) Description 11/22/2022 Orders Only External Location [address] [place] [address] Provider, External Social History Tobacco [...] Pav CC Head, Neck & Respiratory 800 [facility], 2nd [place] [address] Bora Varner MD 800 [facility] [address] [place] [phone] documented as of this encounter Procedures Procedure [...] on filedocumented in this encounter Care Teams Management Trainee Program Stores Relationship Specialty Start Date End Date Pcp, No [address] [place] [address] PCP - General Family Medicine 12/18/22 12/03/23 Joe George MD [address] [place] [address] PCP - General 12/04/23 Ata Williamson MD [address] [place] [address] 12/11/22 Bora Varner MD 800 [facility] [address] [place] [phone] Surgeon Otolaryngology 12/11/22 documented as of this encounter
--- OUTSIDE RECORDS SUMMARY | 2025-09-23 07:34 | XMS_ITS | Patient Health Record ---
Author Organization [facility] Address [address] [place] [id number] Care Team Providers Care Rn Invasive Name Role Phone ArielJavier Primary Care Provider Evgeny Briseno Unavailable [phone] Allergies No Known Allergies Results Component Value [...] Normal Performing Lab: Notes/Report: Test performed by [facility] [address] [place] [address] , [address], [place] [address] Ramesh Reed MD, Food General Manager CLIA: [id number] Sodium 144 135-145 mmol/L Potassium 4.8 3.5-5.3 [...] 163 Performing Lab: Notes/Report: Test performed by [facility] [address] [place] [address] , [address], [place] [address] Ramesh Reed MD, Food General Manager CLIA: [id number] Cholesterol 204 <200 mg/dL Triglycerides 221 <150 [...] Interpretation:7.58 Performing Lab: Notes/Report: Test performed by [facility] [address] [place], [place] [address] [place] , [place] [address] Ramesh Reed MD, Food General Manager CLIA: [id number] PSA 7.58 <4.00 ng/mL Please note this is an ultrasensitive PSA assay with a lower limit of detection of 0.014 ng/mL. This test is performed by the [employer] ECLIA methodology. Values obtained with different assay [...] Normal Performing Lab: Notes/Report: Test performed by [facility] [address] [place], [place] [address] [facility] [place] , [address], [place] [address] Ramesh Reed MD, Food General Manager CLIA: [id number] TSH reflex to FT4 1.84 0.43-5.25 mU/L P-Microalbumin/Creatinine, R andom Urine Sample Reviewed date:11/22/2024 09:57:48 AM Interpretation:a/c 2424 Performing Lab: Notes/Report: Test performed by [facility] [address] , [address], [place] [address] Ramesh Reed MD, Food General Manager CLIA: [id number] Albumin/Creatinine Ratio, Urine 2424 0-30 ug/mg Microalbumin, [...] Once a day; Duration: 30 day(s) Not-Taking Eliquis 5 MG 1 tab(s) orally once daily Active FreeStyle Izzy 3 Jean - as directed E11.40 03/09/2025 Active Atorvastatin Calcium 40 MG 1 tab(s) orally once a day; Duration: 90 days Active FreeStyle Izzy 3 Plus Sensor - change sensor every 15 days; Duration: 90 days Active Immunizations Vaccine Route [...] W/U Status Risk Notes Problem Coronary arteriosclerosis (53799872) 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) Active confirmed Problem Long-term current use of anticoagulant (263156779) 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) Active confirmed Problem Body mass index 30+ - obesity (124430408) BMI 30.0-30.9,adult (Z68.30) Active confirmed Problem Diabetic peripheral neuropathy associated with type 2 diabetes mellitus (0379186078445) Type 2 diabetes mellitus with diabetic neuropathy, unspecified (E11.40) Active confirmed Problem Ischemic cardiomyopathy (273291669) Ischemic cardiomyopathy (I25.5) Active confirmed Problem Long-term current use of insulin (095812777) 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.4) Active confirmed Problem Diabetes mellitus uncontrolled (871155132) Uncontrolled diabetes mellitus (E11.65) Active confirmed Problem Renal stone (43701052) Renal stone (N20.0) Active confirmed Problem Non-rheumatic mitral regurgitation (485671638) Non-rheumatic mitral regurgitation (I34.0) Active confirmed Problem Dyslipidemia (533990750) Dyslipidemia (E78.5) Active confirmed Problem Solitary nodule of lung (450845082) Lung nodule seen on imaging study (R91.1) Active confirmed Problem Gallstones (727622409) Gallstones (K80.20) Active confirmed Problem Osteomyelitis (31948799) Osteomyelitis of toe of right foot (M86.9) Active confirmed Problem Chronic atrial fibrillation (930653794) Chronic atrial fibrillation (I48.20) Active confirmed Problem Gastroesophageal reflux disease with esophagitis (disorder) (375147369) Gastroesophageal reflux disease with esophagitis without hemorrhage (K21.00) Active confirmed Problem History of malignant neoplasm of tonsil (27600931977953) 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) Active confirmed Vital Signs Heart Rate 48 /min 02/15/2025 Blood pressure diastolic 90 mm Hg 02/15/2025 Height 72.50 in 02/15/2025 Blood pressure systolic 150 mm Hg 02/15/2025 Weight 213.2 lbs 02/15/2025 BMI 28.51 kg/m2 02/15/2025 Encounters Encounter Location Date Provider Diagnosis [facility] [id number] 11/20/2024 Evgeny Briseno Type 2 diabetes santino itus with diabetic neuropathy, unspecified E11.40 ; residential (current) use of insulin Z79.4 ; ASCVD (arteriosclerotic cardiovascular disease) I25.10 ; Chronic atrial fibrillation I48.20 ; Elevated PSA R97.20 ; Prostate cancer screening Z12.5 and Ischemic cardiomyopathy I25.[address] [id number] 12/28/2024 R Sammy Ariel Preop examination Z01.818 ; ASCVD (arteriosclerotic cardiovascular disease) I25.10 ; Type 2 diabetes mellitus with diabetic neuropathy, unspecified E11.40 ; Dyslipidemia E78.5 ; Chronic atrial fibrillation I48.20 and Hx of malignant neoplasm of tonsil Z85.818 [facility] [address] [id number] 01/11/2025 R Sammy Ariel Gallstones K80.[address] [place], [place] [id number] 02/15/2025 R Sammy Ariel Enterocolitis K52.9 and BMI 28.0-28.9,adult Z68.28 [facility] [address] [place], [place] [id number] 11/22/2024 Evgeny [place] [facility] [address] [place], [place] [id number] 01/03/2025 R Sammy Ariel [facility] [address] [place], [place] [id number] 01/08/2025 R Sammy Ariel ASCVD (arteriosclero tic cardiovascular disease) I25.10 [facility] [address] [place], [place] [id number] 01/14/2025 R Sammy Ariel [facility] [address] [place] [id number] 02/11/2025 R Sammy Ariel Type 2 diabetes santino itus with diabetic neuropathy, unspecified E11.40 [facility] [address] [place], [place] [id number] 02/15/2025 R Sammy Ariel [facility] [address] [place] [id number] 02/25/2025 R Sammy Ariel Type 2 diabetes santino itus with diabetic neuropathy, unspecified E11.40 [facility] [address] [place], [place] [id number] 02/25/2025 R Sammy Ariel [facility] [address] [place] [id number] 03/09/2025 R Sammy Ariel [facility] [address] [place] [id number] 06/14/2025 R Sammy Ariel Type 2 diabetes santino itus with diabetic neuropathy, unspecified E11.40 [facility] [address] [place] [id number] 06/27/2025 R Sammy Ariel [facility] [address] [place], [place] [id number] 07/22/2025 R Sammy Ariel [facility] [address] [place], [place] [id number] 09/13/2025 Javier George Assessments Encounter Date Diagnosis (ICD Code) Assessment Notes Treatment Notes Treatment Clinical Notes Section Notes 12/28/2024 ASCVD (arteriosclerotic cardiovascular disease) (ICD-10 - I25.10) 12/28/2024 Preop examination (ICD-10 - Z01.818) He is an acceptable medical risk for surgery from a primary care standpoint. See also Cardilogy clearance. 02/25/2025 Type 2 diabetes mellitus with diabetic neuropathy, unspecified (ICD-10 - E11.40) 02/15/2025 Enterocolitis (ICD-10 - K52.9) vs diverticulitis 02/15/2025 BMI 28.0-28.9,adult (ICD-10 - Z68.28) 02/11/2025 Type 2 diabetes mellitus with diabetic neuropathy, unspecified (ICD-10 - E11.40) 01/11/2025 Gallstones (ICD-10 - K80.20) Discussed low-fat diet. Keep scheduled appointment with Dr. Snyder for surgical consultation. 01/08/2025 ASCVD (arteriosclerotic cardiovascular disease) (ICD-10 - I25.10) 06/14/2025 Type 2 diabetes mellitus with diabetic neuropathy, unspecified (ICD-10 - E11.40) 11/20/2024 Type 2 diabetes mellitus with diabetic neuropathy, unspecified (ICD-10 - E11.40) Not at goal 11/20/2024 residential (current) use of insulin (ICD-10 - Z79.4) 11/20/2024 ASCVD (arteriosclerotic cardiovascular disease) (ICD-10 - I25.10) 12/28/2024 Type 2 diabetes mellitus with diabetic neuropathy, unspecified (ICD-10 - E11.40) 12/28/2024 Dyslipidemia (ICD-10 - E78.5) 11/20/2024 Chronic atrial fibrillation (ICD-10 - I48.20) 11/20/2024 Elevated PSA (ICD-10 - R97.20) 12/28/2024 Chronic atrial fibrillation (ICD-10 - I48.20) [...] Date MEDICARE PART B [address] [address] [place] [address] [id number] Nathaniel Thaise Self - patient is the insured [employer] [address] [address] [place] [address] [id number] Thais Armstronge Self - patient is the insured Medical [...] pin abdomnial hernia repair heart cath 05/2017 Colonoscopy-[facility]-Dr. Rupesh Cortez 02/18/2014 Amputation of right great toe/ Dr. 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 Treviño 06/12/2023 Subtalar joint arthrodesis/ Dr. Treviño 01/20/2025 Hospitalization History Reason Date(Month/Year) [facility]-heart failure 06/10/2017 Colonoscopy 2007,2012 [place] [facility]-abdominal pain 06/2011
--- OUTSIDE RECORDS SUMMARY | 2025-09-23 07:34 | XMS_ITS | Encounter Summary ---
Author Organization [facility] Address [address] [place] [address] Care Team Providers Care Renewable Energy Division Manager Name Role Phone Ata Williamson MD Unavailable [phone] Bora Varner MD Unavailable [phone] Pcp, No Primary Care Provider Unavailabl e Joe George MD Primary Care Provider [phone] Encounter Details Date Type Department Care Team (Late st Contact Info) Description 12/03/2022 Orders Only External Location [address] [place] [address] Provider, External Social History Tobacco [...] Pav CC Head, Neck & Respiratory 800 [facility], 2nd [place] [address] Bora Varner MD 800 [facility] [address] [place] [phone] documented as of this encounter Procedures Procedure [...] on filedocumented in this encounter Care Teams Renewable Energy Division Manager Relationship Specialty Start Date End Date Pcp, No [address] [place] [address] PCP - General Family Medicine 12/18/22 12/03/23 Joe George MD [address] [place] [address] PCP - General 12/04/23 [place] [address] [place] [address] 12/11/22 Bora Varner MD 800 [facility] [address] [place] [phone] Surgeon Otolaryngology 12/11/22 documented as of this encounter
--- OUTSIDE RECORDS SUMMARY | 2025-09-23 07:34 | XMS_ITS | Encounter Summary ---
Author Organization [facility] Address [address] [place] [address] Care Team Providers Care Big Machine Consultant Name Role Phone Ata Williamson MD Unavailable [phone] Bora Varner MD Unavailable [phone] Pcp, No Primary Care Provider Unavailabl e Joe George MD Primary Care Provider [phone]- [phone] Encounter Details Date Type Department Care Team (Late st Contact Info) Description 12/03/2022 Orders Only External Location [address] [place] [address] Provider, External Social History Tobacco [...] CC Head, Neck & Respiratory 800 [facility], 2nd [place] [address] Bora Varner MD 800 [facility] [address] [place] [phone] documented as of this encounter Procedures Procedure [...] on filedocumented in this encounter Care Teams Big Machine Consultant Relationship Specialty Start Date End Date Pcp, No [address] [place] [address] PCP - General Family Medicine 12/18/22 12/03/23 Joe George MD [address] [place] [address] PCP - General 12/04/23 [place] [address] [place] [address] 12/11/22 Bora Varner MD 800 [facility] [address] [place] [phone] Surgeon Otolaryngology 12/11/22 documented as of this encounter
--- OUTSIDE RECORDS SUMMARY | 2025-09-23 07:34 | XMS_ITS | Data Portability ---
Author Organization [facility] JEFRY Singh [place] [facility] Address [address] [place] [address] Care Team Providers Care Bowl Attendant Name Role Phone ARCHANA PEREZ Primary Care Provider [phone] BRENNEN HOWE X Ray Control Equipment Repairer Assessment No assessment recorded. Plan of Treatment Reminders Order Date Submit Date Provider Last Modified By Organization Details Last Modified Time Details Appointments None recorded. Lab None recorded. Referral None recorded. Procedures None recorded. Surgeries None recorded. Imaging None recorded. Medication Orders hydrocodone 7.5 mg-acetamin ophen 325 mg tablet 2022 023 [facility] 591, [address], [address], 12:47:41 Patient TargetsNo targets recorded. Patient Instructions Encounter Date Encounter Id Patient Instructions Last Modified By Organization Details Last Modified Time 11/22/2022 [id number] 1. Laryngoscopy flex performed in office today. [...] though obviously we need a dx first. [email or web address] Not available 11/24/2022 13:02:00 12/06/2022 [id number] 1. PET scan ordered in office today. [...] works with some of the oncologists at [place]. We will place referrals for him to see both rad onc and heme-onc over there. They also would like to discuss the University potential transoral robotic surgery resection. They have requested [place] so we will place referral as well. We will also work to set up a PET/CT to evaluate for any distant disease. I will plan to call him with these results. [email or web address] Not available 12/06/2022 12:47:17 Reason for Referral [...] D Volum e: 5 mL Color : [place] Fixed : Y Blood y: N Clott [...] 09:31 Page 1 of 1 Not Available [facility] [address] [place] [address], [place], [address], 12/05/2022 09:32:18 11/23/19 23 11/22/2022 CT, neck, soft tissu e, w/ contr ast [place] [facility] [address] [facility] [address] Patien t Name: CUCA WYNN ON Patien [...] 350 (1 x 100 mL bottle of [facility] [address]-9 1). None was wasted and discar [...] Davis MD on 023 12:35 PM [email or web address] [facility] [address], [address], 11/25/2022 16:32:37 12/03/19 23 12/03/2022 US neck nodul e fna only [address] [address] Patisloan t Name: BORA WYNN ON Patisloan [...] Greg Davis MD on 023 5:04 PM [email or web address] [facility] [address] [place] [address], [address], 12/05/2022 08:19:17 12/03/19 23 12/03/2022 US, neck [facility] [address] [place] [address], [place] [address] Patien t Name: BORA WYNN ON Patien [...] Greg Davis MD on 023 5:06 PM [email or web address] [facility] [address], [address], 12/05/2022 08:19:17 12/12/19 23 12/11/2022 PET-C T, skull base to mid-t high scan [facility] [address] [place] [address] [facility] [place] [address] Patien t Name: BORA WYNN ON Patien t : [birth year] Patien t Orderi ng Provid er: GRACE CHAVEZ CHEN EXAM DATE: 2022 EXAM: PET-CT TUMOR SKULL BASE-M ID THIGH INT [facility] AL INFORM ATION: Head and Neck Cancer - Initia l PROCED URE: Baseli ne blood glucos e level was 137 mg/dL. 14.1 mCi F-18 FDG ([facility] [address]-3 0) was inject ed IV. After [...] Greg Davis MD on 12/12/19 9:21 AM [email or web address] [facility] [address] [place], [address], 12/13/2022 08:22:31 Result Notes Documentation Provider Name and Address Organization Details Recorded Time Ct, Neck, Soft Tissue, W/ Contrast : [address] [address] Patient Name: CUCA ARMSTRONG Patient : 1950 Patient Ordering Provider: GRACE NAGEL EXAM DATE: 11/22/2022 EXAM: CT SOFT TISSUE NECK WITH CONTRAST CLINICAL INFORMATION: Left neck mass. TECHNIQUE: A baseline serum creatinine with eGFR was obtained prior to injection of contrast medium due to the patients risk factors for VENICE. Calculated eGFR at time of exam was GFR [address] images of the neck were obtained after injection of 100 mL Omnipaque 350 (1 x 100 mL bottle of [facility] [address]-97). None was wasted and discarded. COMPARISON: None. [...] By: Dean Davis MD Yaneth De Santiago [facility] 11/25/2022 16:32:37 Pet-ct, Skull Base To Mid-thigh Scan : [address] [place] [address] Patient Name: BORA ARMSTRONG Patient : 1950 Patient Ordering Provider: GRACE NAGEL EXAM DATE: 12/11/2022 EXAM: PET-CT TUMOR SKULL BASE-MID THIGH INT ST CLINICAL INFORMATION: Head and Neck Cancer - Initial PROCEDURE: Baseline blood glucose level was 137 mg/dL. 14.1 mCi F-18 FDG ([facility] [address]-45) was injected IV. After an uptake time [...] By: Dean Davis MD E NAGEL MD [address] [place] [address], [phone] 12/13/2022 08:22:31 Procedures Surgical History Date Name Laterality Status Provider Name and Address Organization Details Recorded Time 11/22/19 23 Laryngoscopy Flex completed Natividad Hernandez [facility] 11/22/2022 13:30:20 Imaging Results None recorded. Procedure Notes None recorded. Medical Equipment None Reported. Allergies Allergen ID Allergen Name Allergen Category Reaction Reaction Severity Criticality Documentation Date Start Date Code Code System Note Provider Name and Address Organization Details Recorded Time 965073 NovoLog Mix medicatio n Not available Not available Not available 11/22/2022 21585 41 [facility] 12:58[facility]07 Medications Name Sig [...] Address Organization Details Last Updated DateTime 3 36747.1 4 g 97.3 [degF] 28 kg/m2 187.96 cm 87 /min 160/94 mm[Hg] Henny Chadwick [facility] 3 13:02:23 Date Recorded Body height Body mass index (BMI) Body weight Provider Name and Address Organization Details Last Updated DateTime 12/06/2022 187.96 cm 27 kg/m2 24555.4 g Jeaneth Martinez [facility] 12/06/2022 11:23:35 Social History Question Answer Notes LastModified by Organizat ion Details LastModified Time Tobacco Smoking Status Never Smoker Henny Recinosley [facility] 11/22/2022 12:54:56 Have You Recently Traveled Abroad? No [email or web address] Information not available 11/22/2022 Sex: Unknown Functional Status Question Answer Note LastModified by Organizat ion Details LastModified Time What is your level of alcohol consumption? Occasional [email or web address] Information not available 11/22/2022 Mental Status None recorded. Family History Relationship Description Onset Age of this Age Resolved Age Notes LastModified by Organization Details LastModified Time Brother Hypertensive disorder Not available 11/22 12:56:41 Father Hypertensive disorder Not available 11/22 12:56:41 Mother Diabetes mellitus [email or web address] Not available 11/22 12:56:58 Medical History Condition Response Diabetes Y Bleeding Disorder N Anesthesia Complications N Cancer Y Hypertension N Past Encounters Encounter ID Performer Location Encounter Start Date Encounter Closed Date Diagnosis/Indication Diagnosis SNOMED-CT Code Diagnosis ICD10 Code Diagnosis IMO Codes Diagnosis Note [id number] QM_[facility]POR[place] [address] 01/13/2017 19:46:33 01/13/2017 19:46:33 [id number] GRACE NAGEL MD [place] [facility] [address] [place] [address] 11/22/2022 12:15:14 11/22/2022 14:24:41 Deviated nasal septum 484073553 J34.2 left Hypertroph y of tonsils 79218001 J35.1 1+ Cervical lymphadenopathy 907831829 R59.0 left firm level 2 swollen lymph node. Mass of tongue 400553690 R22.0 [id number] GRACE NAGEL MD [place] [facility] [address] [place] [address] 12/06/2022 11:22:15 12/06/2022 12:32:07 Deviated nasal septum 982492098 J34.2 left Hypertroph y of tonsils 53224411 J35.1 1+ Cervical lymphadenopathy 818941078 R59.0 left firm level 2 swollen lymph node. 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 GRACE NAGEL MD [address] [place] [address], [phone], [facility] 11/24/2022 13:02:17 12/06/2022 text/html Cuca is 72 [...] confirms that he/she is physically located in [place] at the time of this visit. Patient [...] the best possible care. GRACE NAGEL MD [address] [place] [address], [phone], [facility] 12/06/2022 12:47:38
--- NOTE | 2025-09-23 07:45 | MR_ITS ---
FINAL REPORT CLINICAL HISTORY: soft tissue mass: medial plantar foot. PUT MARKER ON MASS COMPARISON: None FINDINGS: Multiplanar MR imaging of the left foot was performed with and without contrast. The Achilles tendon is intact. The plantar fascia is intact. There is no evidence of fracture. On coronal images, there are osteochondral lesions identified in the lateral talar dome, 7 mm in greatest dimension. There are moderate hypertrophic changes at the 1st tarsometatarsal joint. There is extensive edema in the anterior calcaneus. Degenerative subchondral cyst formation is noted along the superior margin of the distal calcaneus measuring 1.2 cm in greatest dimension. The flexor and extensor tendons are intact. No fluid collections are identified. The intrinsic muscles are unremarkable. Skin marker was placed along the medial plantar aspect of the foot. It resides at the level of the medial cuneiform. There is skin thickening and subcutaneous soft tissue edema at this location but no discrete mass identified. There are no areas of abnormal contrast-enhancement. IMPRESSION: Subcutaneous edema and thickening at the site of clinical abnormality deep to the medial cuneiform. Osteochondral lesion along the superior margin of the distal calcaneus with extensive underlying marrow edema. Osteochondral lesion lateral talar dome. Reviewed, Interpreted and Dictated by Barry Quintanilla MD Transcribed by Margaret Molina Authenticated and [facility]
[2025-09-23] MEDS: GADOTERIDOL INJ 20ML SYRINGE 19 ML IV (09:01)
[2025-09-23] MEDS: SODIUM CHLORIDE 0.9% 10ML SYR (RAD ONLY) 10 ML IV (09:01)
== END 2025-09-23 23:59 | disposition home or self-care (01) ==
LOC: RAD 07:29
PROVIDERS: PCP Family Medicine; Visit Provider Podiatrist
DX: M93.872 Other specified osteochondropathies, left ankle and foot (principal); M79.89 Other specified soft tissue disorders; M86.9 Osteomyelitis, unspecified; M20.62 Acquired deformities of toe(s), unspecified, left foot
CPT/HCPCS: 73720; A9576